=== PATIENT | female | born 1955 | race Caucasian/White ===

== ENCOUNTER 2020-01-06 12:35 | Outpatient (CLI) | payer MEDICARE, OTHER, SELFPAY ==
[2020-01-06 12:55] LABS: Basophils % 0.3 %; Hematocrit 35.7 % (37.0-47.0); Hemoglobin 11.8 g/dL (11.5-15.3); Lymphocytes # 2.7 10^3/uL (0.8-4.8); Lymphocytes % 25.8 %; Mean Corpuscular HGB Conc 33.1 g/dL (30.0-36.0); Mean Corpuscular Hemoglobin 30.8 pg (28.0-34.0); Mean Corpuscular Volume 93.2 fL (81-99); Mean Platelet Volume 10.2 fL (7.4-10.4); Monocytes # 0.6 10^3/uL (0.2-0.9); Monocytes % 5.6 %; Neutrophils # 7.1 10^3/uL (1.8-7.7); Neutrophils % 67.7 %; Nucleated Red Blood Cells % 0 %; Platelet Count 260 10^3/cmm (130-400); Red Blood Count 3.83 10^6/uL (4.1-5.3); Red Cell Distribution Width 14.6 % (12.1-15.1); White Blood Count 10.5 10^3/uL (4.0-10.0)
[2020-01-06 13:12] LABS: Ferritin 215 ng/mL (15-150); Iron 61 ug/dL (37-145); Percent Saturation 21.7 % (20-50); Total Iron Binding Capacity 281 mcg/dl; Unsaturated Iron Binding 220 ug/dL (112-347)
[2020-01-06 13:27] LABS: Vitamin B12 987 pg/mL (232-1245)
--- NOTE | 2020-01-06 15:53 | ONC FU_ITS ---
Dr. Adams follow up note Patient: Kimberly Patrick Unit #: [id number]: 1955 Dicatated By: Rae Adams M.D.Date of Visit:Jan 06, 2020 Onc Med Follow-up/Prog Note History of Present Illness: Mrs. Kimberly Patrick, 64-year-old female with history of anemia . As per patient, she was given iron tablets in January 2016 with that she developed severe constipation and upset stomach it was discontinued then she was given liquid iron from [employer] and she could not tolerate that either and it was discontinued finally on 05/09/2016 she was given 2 years till packed RBCs for persistent anemia she does not remember how low her hemoglobin was. And then she received weekly infusion of parenteral iron 1 on 07/18/2016 second on 07/25/2016 and she felt so good and energetic she went out for hiking and long walk. Patient has history of peptic ulcer disease about 20 years ago at that time she was treated with antibiotics antacids and diet modification and her last EGD was done on 06/15/2016 and it was normal. And on 06/15/2016 she had colonoscopy evaluation and it was normal. Except internal hemorrhoids On CBC checked on 06/13/2017 showed white blood count 11.3 hemoglobin 9 hematocrit 27.7 platelets 386,000 MCV 85.3 and repeat CBC on 07/31/2017 showed white blood count 8.9 hemoglobin 7.9 crit 22.9 platelets 391k MCV 78.5 , complaining of generalized weakness and fatigue, patient said last time when she received Injectafer, she felt really good and her hemoglobin improved but since then she had aortic surgery done for leaky valve and and recently on 05/19/2019 her routine lab workup showed white blood count 7.7 hemoglobin 9.8 hematocrit 29.6 MCV 87.4 platelets 310,000 iron saturation 17.5% which is low and TIBC 410, patient was on oral iron before but on 05/19/2019 her PMD increased her oral iron dose to twice a day. And now with upset stomach and intolerance. Patient denies any melena or hematochezia except darker stools due to iron, no fever or chills, no jaundice, no hemoptysis or hematemesis. But dyspnea on exertion now use home oxygen her [id number] desaturation on exertion.Was given Injectafer on 06/10/2019 and 06/17/2019 with that her hemoglobin improved to 12.4 on 07/15/2019 compared to 10.7 g prior to Injectafer infusion Capsule endoscopy was done on 08/29/2019 showed normal exam no also, no AVMs or other lesion seen Came for follow-up, denies any specific complaints, no fever or chills, no nausea or vomiting, no diarrhea constipation, no melena hematochezia, no palpitation or shortness of breath.using home oxygen as recommended by PMD. Medications: Acetaminophen 1 Tablet (of 650 mg) Oral daily, Advair Diskus 1 Tablet (of 250-50 mcg/dose) Aerosol Powder, Breath Activated Inhalation b.i.d., Albuterol Sulfate 3 puff(s) (of 108 (90 base) mcg/act) Aerosol Powder, Breath Activated Inhalation four times a day, amLODIPine Besylate 1 Tablet (of 2.5 mg) Oral daily, Aspirin 1 Tablet (of 81 mg) Tablet, enteric coated Oral daily, Brovana 2 (15 mcg/2mL) Nebulization solution Inhalation q 12 hours, Bydureon 1 Subcutaneous q 7 days, Carbidopa-Levodopa 1 Tablet (of 25-100 mg) Tablet Dispersable Oral at bedtime, EpiPen Jr 2-Jacobo Injection PRN, Ergocalciferol 1 Tablet (of 45226 Units) Capsule Oral daily, Ferrous Sulfate 1 Tablet (of 325 (65 fe) mg) Oral daily, Furosemide 1 Tablet (of 40 mg) Oral daily, Gabapentin 1 Tablet (of 100 mg) Capsule Oral four times a day, Gemfibrozil 1 Tablet (of 600 mg) Oral b.i.d., Lisinopril 1 Tablet (of 20 mg) Oral daily, LORazepam 1 Tablet (of 1 mg) Oral b.i.d. PRN, MetFORMIN HCl 1 (1000 mg) Tablet Oral b.i.d., Metoprolol Tartrate 0.5 Tablet (of 100 mg) Oral b.i.d., Metoprolol Tartrate 1 (25 mg) Tablet Oral b.i.d., Montelukast Sodium 1 Tablet (of 10 mg) Oral daily, NexIUM 1 Tablet (of 40 mg) Capsule Delayed Release Oral daily, Nitrofurantoin Monohyd Macro 1 Tablet (of 100 mg) Capsule Oral at bedtime, Potassium Chloride ER 1 Tablet (of 20 meq) Tablet, controlled release Oral daily, ProAir HFA 2 puff(s) (of 108 (90 base) mcg/act) Aerosol, solution Inhalation daily PRN, Simvastatin 1 Tablet (of 20 mg) Oral daily, Triamterene-HCTZ 1 Tablet (of 37.5-25 mg) Oral daily, Vitamin B12 1 Tablet (of 1000 mcg) Oral daily, Zoloft 2 Tablet (of 100 mg) Oral daily Allergies: bee stings, Erythromycin Base, Lyrica, Naproxen, Savella, SULFA , and Walnuts. Review of Systems: Constitutional - Her energy level is good. Her appetite is fair. No fever, chills, hot flashes, or night sweats, ENMT - She has sinus congestion/drainage. No mouth sores. No sore throat or difficulty swallowing, Hematologic/Lymphatic - She bruises easily, Respiratory - She has shortness of breath with activity. She has cough. Pt is on portable oxygen today. No pleuritic pain, Cardiovascular - No angina pain, Gastrointestinal - No nausea or vomiting, positive for heartburn and diarrhea, Genitourinary (F) - Positive for stress incontinence and urinary frequency, Musculoskeletal - She has generalized pain, Neurologic - She has dizziness. Positive for headache. She has neuropathy pain in her feet, Psychiatric - She has anxiety and depression. She has insomnia. Vital Signs: Performed on Jan 06, 2020 14:25 Height - 65.50 in Weight - 259.4 lbs (HIGH) BSA - 2.22 sq.m BMI - 42.51 (HIGH) Temperature - 96.9 F (LOW) Pulse - 85 /min Respiration - 19 /min BP - 134/78 mm(hg) O2 Sat - 95 % (LOW) Pain - 8 Performance Status: 1 - No physically strenuous activity, but ambulatory and able to carry out light or sedentary work (e.g. office work, light house work). (ECOG) Physical Examination: ENMT - No oral exudates, ulcers, masses, thrush or mucositis. Oropharynx clear. Tongue normal, Respiratory - poor air entry, Cardiovascular - Regular rate and rhythm of heart, Extremities - trace edema. Lab/Imaging: Test performed on Oct 08, 2019 12:54 Ferritin 417.0 ng/ml Iron 91 ug/dL % Iron Saturation 25.4 % UIBC 266 ug/dL WBC 9.5 10 3/uL RBC 3.76 10 6/uL HGB 11.9 g/dL HCT 35.7 % MCV 94.9 fl MCH 31.6 pg MCHC 33.3 g/dl RDW 14.2 % Platelet Count 319 10 3/cmm MPV 10.5 fl Neutrophils 5.8 10 3/uL Lymphocytes 2.8 10 3/uL Monocytes 0.8 10 3/uL Eosinophils 0.0 10 3/uL Basophils 0.0 10 3/uL Neutrophil % 61.4 % Lymphocyte % 29.6 % Monocyte % 8.1 % Eosinophil % 0.0 % Basophils % 0.4 % Impression: Microcytic normochromic anemia probably due to iron deficiency due to malabsorption or/ and chronic GI blood loss (history of peptic ulcer disease and internal hemorrhoids) Underlying myelodysplasia cannot be ruled out On 08/07/2017 her ferritin was 4.2 TIBC 782.3 B12 325 copper 133 folic acid more than 20 TSH 1.87 Status post 2 units of packed RBCs on 05/09/2016 history of parenteral iron infusionIn June 2016 , for iron deficiency Oral iron intolerance Status post Injectafer ???2, Plan: Discussed with patient regarding her labs white blood count 10.5 globin 11.8 hematocrit 35.7 platelets 260,000 iron saturation 21.7% ferritin 250 and compared to 417 on 10/08/2019, iron 61, TIBC 281, B12 987 Clinically, patient is doing well, follow-up lab shows hemoglobin still in the normal range e.g. 11.8 normal range is 11.5-15.3 g and iron studies shows further drop in her ferritin level but still within normal range. We'll continue to monitor and she will return to clinic in 3 months with CBC on studies B12 level. Patient is taking B12 2000 ???g every day she was advised take 1000 ???g daily Signed By: Rae Adams M.D. <<Signature on File>>
== END 2020-01-06 12:36 | disposition home or self-care (01) ==
LOC: ONCMED 12:38
PROVIDERS: Family Provider Family Medicine; PCP Family Medicine; Visit Provider Internal Medicine Hematology & Oncology
DX: D50.9 Iron deficiency anemia, unspecified (principal); F41.8 Other specified anxiety disorders; K64.8 Other hemorrhoids; Z99.81 Dependence on supplemental oxygen; Z79.51 Long term (current) use of inhaled steroids; Z79.82 Long term (current) use of aspirin; Z87.11 Personal history of peptic ulcer disease
CPT/HCPCS: 82607; 82728; 83540; 83550; 85025; G0463

== ENCOUNTER 2020-04-11 08:20 | Outpatient (CLI) | payer MEDICARE, OTHER, SELFPAY ==
[2020-04-11 10:37] LABS: Basophils % 0.3 %; Hematocrit 32.8 % (37.0-47.0); Hemoglobin 10.4 g/dL (11.5-15.3); Lymphocytes # 1.9 10^3/uL (0.8-4.8); Lymphocytes % 27.4 %; Mean Corpuscular HGB Conc 31.7 g/dL (30.0-36.0); Mean Corpuscular Hemoglobin 30.1 pg (28.0-34.0); Mean Corpuscular Volume 95.1 fL (81-99); Mean Platelet Volume 11.2 fL (7.4-10.4); Monocytes # 0.6 10^3/uL (0.2-0.9); Monocytes % 8.5 %; Neutrophils # 4.4 10^3/uL (1.8-7.7); Neutrophils % 63.2 %; Nucleated Red Blood Cells % 0 %; Platelet Count 249 10^3/cmm (130-400); Red Blood Count 3.45 10^6/uL (4.1-5.3); Red Cell Distribution Width 15.1 % (12.1-15.1)
[2020-04-11 10:56] LABS: Ferritin 159 ng/mL (15-150); Iron 52 ug/dL (37-145); Percent Saturation 17.5 % (20-50); Total Iron Binding Capacity 297 mcg/dl; Unsaturated Iron Binding 245 ug/dL (112-347)
== END 2020-04-11 08:21 | disposition home or self-care (01) ==
LOC: ONCMED 16:18
PROVIDERS: PCP Family Medicine; Visit Provider Internal Medicine Hematology & Oncology
DX: D50.9 Iron deficiency anemia, unspecified (principal)
CPT/HCPCS: 36415; 82728; 83540; 83550; 85025

== ENCOUNTER 2020-04-12 12:27 | Outpatient (CLI) | payer MEDICARE, OTHER, SELFPAY ==
[2020-04-12] MEDS: ferric carboxy (IVPB) 750 MG in sodium chloride 0.9% (100 ml) 100 ML 345 MG IV (13:35)
--- NOTE | 2020-04-12 17:18 | ONC FU_ITS ---
Dr. Adams follow up note Patient: Kimberly Patrick Unit #: [id number]: 1955 Dicatated By: Rae Adams M.D.Date of Visit:Apr 12, 2020 Onc Med Follow-up/Prog Note History of Present Illness: Mrs. Kimberly Patrick, 65-year-old female with history of anemia . As per patient, she was given iron tablets in January 2016 with that she developed severe constipation and upset stomach it was discontinued then she was given liquid iron from [employer] and she could not tolerate that either and it was discontinued finally on 05/09/2016 she was given 2 years till packed RBCs for persistent anemia she does not remember how low her hemoglobin was. And then she received weekly infusion of parenteral iron 1 on 07/18/2016 second on 07/25/2016 and she felt so good and energetic she went out for hiking and long walk. Patient has history of peptic ulcer disease about 20 years ago at that time she was treated with antibiotics antacids and diet modification and her last EGD was done on 06/15/2016 and it was normal. And on 06/15/2016 she had colonoscopy evaluation and it was normal. Except internal hemorrhoids On CBC checked on 06/13/2017 showed white blood count 11.3 hemoglobin 9 hematocrit 27.7 platelets 386,000 MCV 85.3 and repeat CBC on 07/31/2017 showed white blood count 8.9 hemoglobin 7.9 crit 22.9 platelets 391k MCV 78.5 , complaining of generalized weakness and fatigue, patient said last time when she received Injectafer, she felt really good and her hemoglobin improved but since then she had aortic surgery done for leaky valve and and recently on 05/19/2019 her routine lab workup showed white blood count 7.7 hemoglobin 9.8 hematocrit 29.6 MCV 87.4 platelets 310,000 iron saturation 17.5% which is low and TIBC 410, patient was on oral iron before but on 05/19/2019 her PMD increased her oral iron dose to twice a day. And now with upset stomach and intolerance. Patient denies any melena or hematochezia except darker stools due to iron, no fever or chills, no jaundice, no hemoptysis or hematemesis. But dyspnea on exertion now use home oxygen her [id number] desaturation on exertion.Was given Injectafer on 06/10/2019 and 06/17/2019 with that her hemoglobin improved to 12.4 on 07/15/2019 compared to 10.7 g prior to Injectafer infusion Capsule endoscopy was done on 08/29/2019 showed normal exam no also, no AVMs or other lesion seen Came for follow-up, complaining of generalized weakness and fatigue otherwise no melena or hematochezia, no hemoptysis or hematemesis, no jaundice, no palpitation or shortness of breath at rest. Medications: Acetaminophen 1 Tablet (of 650 mg) Oral daily, Advair Diskus 1 Tablet (of 250-50 mcg/dose) Aerosol Powder, Breath Activated Inhalation b.i.d., Albuterol Sulfate 3 puff(s) (of 108 (90 base) mcg/act) Aerosol Powder, Breath Activated Inhalation four times a day, amLODIPine Besylate 1 Tablet (of 2.5 mg) Oral daily, Aspirin 1 Tablet (of 81 mg) Tablet, enteric coated Oral daily, Brovana 2 (15 mcg/2mL) Nebulization solution Inhalation q 12 hours, Bydureon 1 Subcutaneous q 7 days, Carbidopa-Levodopa 1 Tablet (of 25-100 mg) Tablet Dispersable Oral at bedtime, EpiPen Jr 2-Jacobo Injection PRN, Ergocalciferol 1 Tablet (of 07913 Units) Capsule Oral daily, Ferrous Sulfate 1 Tablet (of 325 (65 fe) mg) Oral daily, Furosemide 1 Tablet (of 40 mg) Oral daily, Gabapentin 1 Tablet (of 100 mg) Capsule Oral four times a day, Gemfibrozil 1 Tablet (of 600 mg) Oral b.i.d., Lisinopril 1 Tablet (of 20 mg) Oral daily, LORazepam 1 Tablet (of 1 mg) Oral b.i.d. PRN, MetFORMIN HCl 1 (1000 mg) Tablet Oral b.i.d., Metoprolol Tartrate 0.5 Tablet (of 100 mg) Oral b.i.d., Metoprolol Tartrate 1 (25 mg) Tablet Oral b.i.d., Montelukast Sodium 1 Tablet (of 10 mg) Oral daily, NexIUM 1 Tablet (of 40 mg) Capsule Delayed Release Oral daily, Nitrofurantoin Monohyd Macro 1 Tablet (of 100 mg) Capsule Oral at bedtime, Potassium Chloride ER 1 Tablet (of 20 meq) Tablet, controlled release Oral daily, ProAir HFA 2 puff(s) (of 108 (90 base) mcg/act) Aerosol, solution Inhalation daily PRN, Simvastatin 1 Tablet (of 20 mg) Oral daily, Triamterene-HCTZ 1 Tablet (of 37.5-25 mg) Oral daily, Vitamin B12 1 Tablet (of 1000 mcg) Oral daily, Zoloft 2 Tablet (of 100 mg) Oral daily Allergies: bee stings, Erythromycin Base, Lyrica, Naproxen, Savella, SULFA , and Walnuts. Review of Systems: Review of Systems is not available for this patient. Vital Signs: Performed on Apr 12, 2020 12:41 Height - 65.50 in Weight - 260.8 lbs (HIGH) BSA - 2.23 sq.m BMI - 42.74 (HIGH) Temperature - 97.6 F (LOW) Pulse - 70 /min Respiration - 24 /min BP - 183/74 mm(hg) (HIGH) O2 Sat - 100 % Pain - 8 Performance Status: 1 - No physically strenuous activity, but ambulatory and able to carry out light or sedentary work (e.g. office work, light house work). (ECOG) Physical Examination: ENMT - No mouth sores, no thrush, no jaundice, Respiratory - Lungs are clear, Cardiovascular - Regular rate and rhythm of heart, Abdomen - Soft, bowel sounds present, nontender. Lab/Imaging: Test performed on Jan 06, 2020 12:40 Ferritin 215 ng/mL Iron 61 mcg/dL Vitamin B12 987 pg/mL Iron Binding Capacity (TIBC) 281 mcg/dl % Iron Saturation 21.7 % UIBC 220 mcg/dL WBC 10.5 10 3/uL RBC 3.83 10 6/uL HGB 11.8 g/dL HCT 35.7 % MCV 93.2 fL MCH 30.8 pg MCHC 33.1 g/dL RDW 14.6 % Platelet Count 260 10 3/cmm MPV 10.2 fL Neutrophils 7.1 10 3/uL Lymphocytes 2.7 10 3/uL Monocytes 0.6 10 3/uL Eosinophils 0.0 10 3/uL Basophils 0.0 10 3/uL Neutrophil % 67.7 % Lymphocyte % 25.8 % Monocyte % 5.6 % Eosinophil % 0.0 % Basophils % 0.3 % Impression: Microcytic normochromic anemia probably due to iron deficiency due to malabsorption or/ and chronic GI blood loss (history of peptic ulcer disease and internal hemorrhoids) Underlying myelodysplasia cannot be ruled out On 08/07/2017 her ferritin was 4.2 TIBC 782.3 B12 325 copper 133 folic acid more than 20 TSH 1.87 Status post 2 units of packed RBCs on 05/09/2016 history of parenteral iron infusionIn June 2016 , for iron deficiency Oral iron intolerance Status post Injectafer ???2, Plan: Discussed with patient regarding her labs white blood count 7 hemoglobin 10.4 g compared to 11.8 g on January 06, 2020, hematocrit 32.8 platelets 249,000 iron studies shows further drop in iron saturation now 17.5% compared to 21.7 percent, ferritin 159 compared to 215 previously Clinically, patient is doing reasonably well now with progressive mild/moderate anemia and follow-up labs shows further drop in her hemoglobin e.g. 10.4 g today compared to 11.8 g on January 06, 2020 and iron studies shows further drop in the iron stores and moreover patient is becoming symptomatic and there is no evidence of gross bleeding, GI work-up done in the recent past showed no evidence of gross bleeding. In the past she responded very well to parenteral iron, she was given Injectafer 750 mg weekly x2 in May 2019, with that her hemoglobin improved to 12.4 g compared to 10.7 g prior to the infusion. At this point, because of progressive iron deficiency anemia, we will consider Injectafer 750 mg IV x1 now and then she will return to clinic in 2 months with CBC and iron studies. Signed By: Rae Adams M.D. <<Signature on File>>
== END 2020-04-12 12:28 | disposition home or self-care (01) ==
LOC: ONCMED 12:33
PROVIDERS: PCP Family Medicine; Visit Provider Internal Medicine Hematology & Oncology
DX: D50.9 Iron deficiency anemia, unspecified (principal)
CPT/HCPCS: 96365; 99214; J1439

== ENCOUNTER → 2020-05-11 10:18 | Outpatient (BNVA) | payer MEDICARE, OTHER, SELFPAY | PROVIDERS: PCP Family Medicine; Visit Provider Family Medicine | DX: E11.42 Type 2 diabetes mellitus with diabetic polyneuropathy (principal); R53.83 Other fatigue; F41.9 Anxiety disorder, unspecified | CPT/HCPCS: 36415; 80053; 80061; 83036; 84439; 84443; 85025 ==

== ENCOUNTER → 2020-06-06 10:53 | Outpatient (BNVA) | payer MEDICARE, OTHER, SELFPAY | PROVIDERS: PCP Family Medicine; Visit Provider Podiatrist Foot & Ankle Surgery | DX: E11.621 Type 2 diabetes mellitus with foot ulcer (principal); L97.522 Non-pressure chronic ulcer of other part of left foot with fat layer exposed; L97.512 Non-pressure chronic ulcer of other part of right foot with fat layer exposed; E11.42 Type 2 diabetes mellitus with diabetic polyneuropathy; L84 Corns and callosities | CPT/HCPCS: 73630 ==

== ENCOUNTER → 2020-06-27 16:45 | Outpatient (BNVA) | payer MEDICARE, OTHER, SELFPAY | PROVIDERS: PCP Family Medicine; Visit Provider Internal Medicine Hematology & Oncology | DX: D50.9 Iron deficiency anemia, unspecified (principal); E11.42 Type 2 diabetes mellitus with diabetic polyneuropathy | CPT/HCPCS: 36415; 82728; 83550; 85025 ==

== ENCOUNTER 2020-06-29 06:03 | Outpatient (CLI) | payer MEDICARE, OTHER, SELFPAY ==
--- NOTE | 2020-06-29 16:33 | ONC FU_ITS ---
Dr. Adams follow up note Patient: Kimberly Patrick Unit #: [id number]: 1955 Dicatated By: Rae Adams M.D.Date of Visit:Jun 29, 2020 Telehealth Progress Note The patient has been informed that the visit may not be secure and acknowledged the information. I have explained the option of participating in a telephone or video visit during the [facility]- public health emergency to the patient. After being given an opportunity to ask questions about and discuss this type of visit, the patient verbally consented to proceeding with the telephone/video visit. the patient understands that this service replaces an office visit and they may be billed and /or responsible for any applicable copayments History of Present Illness: Mrs. Kimberly Patrick, 65-year-old female with history of anemia . As per patient, she was given iron tablets in January 2016 with that she developed severe constipation and upset stomach it was discontinued then she was given liquid iron from [employer] and she could not tolerate that either and it was discontinued finally on 05/09/2016 she was given 2 years till packed RBCs for persistent anemia she does not remember how low her hemoglobin was. And then she received weekly infusion of parenteral iron 1 on 07/18/2016 second on 07/25/2016 and she felt so good and energetic she went out for hiking and long walk. Patient has history of peptic ulcer disease about 20 years ago at that time she was treated with antibiotics antacids and diet modification and her last EGD was done on 06/15/2016 and it was normal. And on 06/15/2016 she had colonoscopy evaluation and it was normal. Except internal hemorrhoids On CBC checked on 06/13/2017 showed white blood count 11.3 hemoglobin 9 hematocrit 27.7 platelets 386,000 MCV 85.3 and repeat CBC on 07/31/2017 showed white blood count 8.9 hemoglobin 7.9 crit 22.9 platelets 391k MCV 78.5 , complaining of generalized weakness and fatigue, patient said last time when she received Injectafer, she felt really good and her hemoglobin improved but since then she had aortic surgery done for leaky valve and and recently on 05/19/2019 her routine lab workup showed white blood count 7.7 hemoglobin 9.8 hematocrit 29.6 MCV 87.4 platelets 310,000 iron saturation 17.5% which is low and TIBC 410, patient was on oral iron before but on 05/19/2019 her PMD increased her oral iron dose to twice a day. And now with upset stomach and intolerance. Patient denies any melena or hematochezia except darker stools due to iron, no fever or chills, no jaundice, no hemoptysis or hematemesis. But dyspnea on exertion now use home oxygen her [id number] desaturation on exertion.Was given Injectafer on 06/10/2019 and 06/17/2019 with that her hemoglobin improved to 12.4 on 07/15/2019 compared to 10.7 g prior to Injectafer infusion Capsule endoscopy was done on 08/29/2019 showed normal exam no also, no AVMs or other lesion seen Injectafer 750 mg x 1 given for hemoglobin 10.4g April 12, 2020 with excellent responseE.g. normalization of hemoglobin 12.9 g on June 27, 2020 Evaluated via telephone, patient denies any specific complaints, no melena or hematochezia, no nausea or vomiting, no diarrhea constipation, no fever chills, patient tolerated Injectafer given on April 12, 2020 well, more energetic, now being evaluated for foot surgery. Medications: Acetaminophen 1 Tablet (of 650 mg) Oral daily, Advair Diskus 1 Tablet (of 250-50 mcg/dose) Aerosol Powder, Breath Activated Inhalation b.i.d., Albuterol Sulfate 3 puff(s) (of 108 (90 base) mcg/act) Aerosol Powder, Breath Activated Inhalation four times a day, amLODIPine Besylate 1 Tablet (of 2.5 mg) Oral daily, Aspirin 1 Tablet (of 81 mg) Tablet, enteric coated Oral daily, Brovana 2 (15 mcg/2mL) Nebulization solution Inhalation q 12 hours, Bydureon 1 Subcutaneous q 7 days, Carbidopa-Levodopa 1 Tablet (of 25-100 mg) Tablet Dispersable Oral at bedtime, EpiPen Jr 2-Jacobo Injection PRN, Ergocalciferol 1 Tablet (of 93835 Units) Capsule Oral daily, Ferrous Sulfate 1 Tablet (of 325 (65 fe) mg) Oral daily, Furosemide 1 Tablet (of 40 mg) Oral daily, Gabapentin 1 Tablet (of 100 mg) Capsule Oral four times a day, Gemfibrozil 1 Tablet (of 600 mg) Oral b.i.d., Lisinopril 1 Tablet (of 20 mg) Oral daily, LORazepam 1 Tablet (of 1 mg) Oral b.i.d. PRN, MetFORMIN HCl 1 (1000 mg) Tablet Oral b.i.d., Metoprolol Tartrate 0.5 Tablet (of 100 mg) Oral b.i.d., Metoprolol Tartrate 1 (25 mg) Tablet Oral b.i.d., Montelukast Sodium 1 Tablet (of 10 mg) Oral daily, NexIUM 1 Tablet (of 40 mg) Capsule Delayed Release Oral daily, Nitrofurantoin Monohyd Macro 1 Tablet (of 100 mg) Capsule Oral at bedtime, Potassium Chloride ER 1 Tablet (of 20 meq) Tablet, controlled release Oral daily, ProAir HFA 2 puff(s) (of 108 (90 base) mcg/act) Aerosol, solution Inhalation daily PRN, Simvastatin 1 Tablet (of 20 mg) Oral daily, Triamterene-HCTZ 1 Tablet (of 37.5-25 mg) Oral daily, Vitamin B12 1 Tablet (of 1000 mcg) Oral daily, Zoloft 2 Tablet (of 100 mg) Oral daily Allergies: bee stings, Erythromycin Base, Lyrica, Naproxen, Savella, SULFA , and Walnuts. Review of Systems: Review of Systems is not available for this patient. Vital Signs: Vitals are not available for this patient. Performance Status: 1 - No physically strenuous activity, but ambulatory and able to carry out light or sedentary work (e.g. office work, light house work). (ECOG) Physical Examination: ENMT - Patient denies any mouth sores, denies any jaundice, Respiratory - Denies any shortness of breath or wheezing, Cardiovascular - Denies any palpitation or tachycardia, Abdomen - Denies any abdominal pain or fullness, Extremities - Complaining of trace edema. Lab/Imaging: Test performed on Jun 27, 2020 13:34 % Iron Saturation 31.5 % Iron, Total 86 mcg/dL TIBC 273 mcg/dL WBC 10.4 10^9/L RBC 4.33 10^12/L HGB 12.9 g/dL HCT 38.3 % MCV 88.4 fl MCH 29.9 pg MCHC 33.8 g/dL RDW 14.2 % Platelet Count 316 10^9/L MPV 8.2 fL Neutrophils (Gran) 6.4 10^9/L Lymphocytes 3.3 10^9/L Monocytes 0.6 10^9/L Manual Lymphocytes 32.1 % Manual Monocytes 6.1 % Test performed on Apr 11, 2020 08:20 Ferritin 159 ng/mL UIBC 245 mcg/dL Eosinophils 0.0 10 3/uL Basophils 0.0 10 3/uL Neutrophil % 63.2 % Lymphocyte % 27.4 % Monocyte % 8.5 % Eosinophil % 0.0 % Basophils % 0.3 % NRBC % 0 % Test performed on Jan 06, 2020 12:40 Vitamin B12 987 pg/mL Impression: Microcytic normochromic anemia probably due to iron deficiency due to malabsorption or/ and chronic GI blood loss (history of peptic ulcer disease and internal hemorrhoids) Underlying myelodysplasia cannot be ruled out On 08/07/2017 her ferritin was 4.2 TIBC 782.3 B12 325 copper 133 folic acid more than 20 TSH 1.87 Status post 2 units of packed RBCs on 05/09/2016 history of parenteral iron infusionIn June 2016 , for iron deficiency Oral iron intolerance Status post Injectafer ???2, Plan: Discussed with patient via telephone regarding her labs white blood count 10.4 hemoglobin 12.9 hematocrit 38.3 platelets 316,000 ferritin 629 iron saturation 31.5 iron 86 status post Injectafer 750 mg x 1 on April 12, 2020 Clinically, patient is doing well, with no new signs symptoms overall feeling better, tolerated dose of Injectafer well, follow-up labs shows normalization of hemoglobin e.g. 12.9 g compared to 10.4 g prior to Injectafer infusion. And also with adequate iron stores. At this point we will continue to monitor and repeat her CBC iron studies in 3 months. Patient was advised in case she has any question concern she can call us early.Time spent on the phone 6 minutes Signed By: Rae Adams M.D. <<Signature on File>>
== END 2020-06-29 06:04 | disposition home or self-care (01) ==
LOC: ONCMED 06:06
PROVIDERS: PCP Family Medicine; Visit Provider Internal Medicine Hematology & Oncology
DX: D50.9 Iron deficiency anemia, unspecified (principal)
CPT/HCPCS: 87635

== ENCOUNTER 2020-07-01 05:54 | Day surgery (SDC) | payer MEDICARE, OTHER, SELFPAY ==
[2020-06-30 08:58] VITALS: BMI 41.5
[2020-07-01 06:28] LABS: Glucose Point of Care 128 mg/dL (70-110)
--- NOTE | 2020-07-01 06:31 | ANES.PREANE2 ---
Pre-Anesthetic Assessment Pre-Anesthetic Assessment: Height/Weight: Height 1.65 m Weight 113.398 kg Preop Diagnosis: Left ankle contracture, left hallux rigidus Proposed Procedure: Operation Date: 07/01/20 07:00 Proposed Procedures p Cheilectomy 46800 L97.522 M20.22(Not Applicable) - Morgan Davis DPM s Tendon Lengthening Foot Achilles 35682(Left) - Morgan Davis DPM s Hallux interphalangeal joint arthroplasty left lower extremity 55738(Left) - Morgan Davis DPM Familial anesthetic complications: None Was Beta Efren taken within 24 hours: Yes Last intake: Intake Last Liquid Date 07/01/20 Last Liquid Time 04:15 Last Solid Date 06/30/20 Last Solid Time 19:30 Social: Social History: Tobacco and No alcohol Exam: Pre-Anes Outpt Exam: alert, oriented x 3, clear to auscultation bilaterally and regular rate & rhythm Airway: Cervical ROM: WNL MP: 3 Dentition: Full Additional comments: large neck circumference Pulmonary: Pulmonary: COPD (wears 2 L NC continuously ) and Sleep apnea (cpap) CV/HEM: CV/HEM: CAD, HTN and TN (X2) Comments: AVR replacement in 2018 GI: GI: GERD Metabolic: Metabolic: DM, Hyperlipidemia and Morbid obesity Musc/skel: Musc/skel: Fibromyalgia Neuropsych: Neuropsych: CVA (L sided weakness (residual) - last occured 1995) Comments: denies parkinson's -states RLS Anesthetic Plan: ASA status: 4 Anesthesia: MAC Risk of > 500 ml blood loss (7ml/kg in children): No PFSH Anesthesia PFSH: Medical History Anxiety Asthma COPD exacerbation Depression, controlled Diabetic mononeuropathy associated with diabetes mellitus due to underlying condition Fatigue Fibromyalgia Flaccid bladder Gastro-esophageal reflux disease without esophagitis Hypertension Idiopathic aplastic anemia Idiopathic hypochromic anemia Mixed hyperlipidemia Moderate episode of recurrent major depressive disorder Renal insufficiency, mild Type 2 diabetes mellitus Surgical History Aortic valve replaced H/O breast biopsy Family History Other Cancer Hypertension Social History Smoking and tobacco status: former smoker Quit status (tobacco): has quit using tobacco Data Anesthesia Other Labs: Laboratory Results - last 48 hr 07/01/20 06:25 POC Glucose 128 Cardiac Studies: No Data to Display
--- NOTE | 2020-07-01 06:43 | P.HPUD_ITS ---
Surgery/Procedure H&P Update DATE OF PROCEDURE: July 01, 2020 DATE H&P PERFORMED: 06/06/20 H&P UPDATE INFORMATION: I have reviewed H&P completed within last 30 days, I have examined patient prior to procedure, No changes to prior documentation and H&P is in [facility] EMR on date indicated PREOP DIAGNOSIS: Left ankle contracture, left hallux rigidus PLANNED PROCEDURE: Operation Date: 07/01/20 07:00 Proposed Procedures p Cheilectomy 20012 L97.522 M20.22(Not Applicable) - Morgan Davis DPM s Tendon Lengthening Foot Achilles 18427(Left) - Morgan Davis DPM s Hallux interphalangeal joint arthroplasty left lower extremity 56083(Left) - Morgan Davis DPM
--- NOTE | 2020-07-01 06:43 | W.PM.OPSUD ---
Surgery/Procedure H&P Update DATE OF PROCEDURE: July 01, 2020 DATE H&P PERFORMED: 06/06/20 H&P UPDATE INFORMATION: I have reviewed H&P completed within last 30 days, I have examined patient prior to procedure, No changes to prior documentation and H&P is in [facility] EMR on date indicated PREOP DIAGNOSIS: Left ankle contracture, left hallux rigidus PLANNED PROCEDURE: Operation Date: 07/01/20 07:00 Proposed Procedures p Cheilectomy 39838 L97.522 M20.22(Not Applicable) - Morgan Davis DPM s Tendon Lengthening Foot Achilles 67911(Left) - Morgan Davis DPM s Hallux interphalangeal joint arthroplasty left lower extremity 14678(Left) - Morgan Davis DPM
--- NOTE | 2020-07-01 06:44 | P.OP_ITS ---
Operative Report Date of procedure: July 01, 2020 Pre-op Diagnosis: Left ankle contracture, left hallux rigidus Post-op diagnosis: same Post-op Findings: None Procedure Done: Left Achilles tendon lengthening CPT code 54627. Left hallux interphalangeal joint arthroplasty CPT code 04953 Implants: 0.062 K wire. 4-0 Vicryl. 4-0 nylon. Pathology: none sent Surgeon: Morgan Davis D.P.M. Color Shop Helper: Inés Anesthesia: MAC Estimated blood loss: 5 mL Tourniquet time: See intraoperative documentation IV fluids: None Urine output: None Complications: None Findings: None Condition: stable Disposition: PACU Brief History: Ms. Patrick is a pleasant 65-year-old female with recalcitrant ulceration at her plantar aspect of the left hallux is is painful also has had history of infections and local wound care. At this time she is healed and would like to perform surgical offloading utilizing Achilles tendon lengthening and hallux interphalangeal arthroplasty. Risks include pain, bleeding, numbness, infection, transfer pressure, transfer lesion, surgical site infection, dehiscence, bruising, swelling, permanent numbness, damage to adjacent soft tissue structures, Achilles tendon rupture, need for further surgical intervention. Patient is agreeable wishes to proceed. She was seen in preop consent was signed and left lower extremity signed. Procedure: Under mild sedation the patient was brought to the operating room and placed on the operating table in supine position. A timeout was performed. Anesthesia was then administered by the anesthesia service. Local anesthesia was injected by myself consisting of 30 cc of 0.5% Marcaine plain and a left Mcgrath block fashion as well as a local V block at the left posterior leg. Well- padded pneumatic tourniquet applied high calf. Left lower extremity was scrubbed, prepped and draped utilizing normal aseptic technique. Attention was directed to the left posterior leg where the Achilles tendon was palpated 3 cm proximal to its insertion on the posterior calcaneus a longitudinal incision was made with a #15 blade parallel and midline to the Achilles tendon severing the medial half completing a angie-section. In like fashion 3 cm proximal to this a lateral hemisection of the Achilles tendon was performed in like fashion 3 cm to this a medial angie-section of the Achilles tendon was performed with a #15 blade with an obvious release and improvement in dorsiflexion of the left ankle. Incisions were flushed with saline, closed with 4-0 nylon and covered with OpSite. Attention was then directed to the lateral aspect of the left hallux interphalangeal joint where a linear longitudinal incision was made 3 cm in length with a #15 blade. Dissection was carried down through skin and subcu taneous tissue down to the medial aspect of the hallux interphalangeal joint, utilizing a sagittal saw the head of the proximal phalanx of the left hallux was transected and passed from the operative field. Incision site was flushed with copious amounts of sterile saline solution. K wire was driven from distal to proximal from the distal phalanx coursing proximal to the base of the proximal phalanx this was a 0.062 K wire trimmed to length and covered with a Beatriz ball. Deep tissues reapproximated utilizing 4-0 Vicryl. Skin reapproximated utilizing 4-0 nylon. Incision sites were dressed with Adaptic, sterile 4 x 4's, Kerlix and 4 inch Markus wrap. Cam boot was applied, tourniquet was deflated and a prompt hyperemic response was noted to the distal digits of the left lower extremity. Patient tolerated the procedure well and was transferred to the PACU with vital signs stable and vascular status intact. Following a period of postoperative monitoring she will be discharged home is to remain nonweightbearing to the left lower extremity. Follow-up next 07/08/2020 for dressing change. Was provided my cell phone number to contact me with postoperative questions or concerns.
[2020-07-01] MEDS: sodium chloride 0.9% 1,000 ML 30 ML IV (06:47)
[2020-07-01 07:57] VITALS: BP 125/71; PULSE 72; RESP 18; TEMP 36.2; O2SAT 98
--- NOTE | 2020-07-01 08:01 | XR_ITS ---
WS: [id number] Left foot, 3 views, 07/01/2020 Clinical Data: post op Comparison: Left foot, 06/06/2020. Findings: The distal portion of the left first proximal phalanx has been removed.. There is an orthopedic pin f using the left first IP joint. The pin extends through the distal phalanx and into the proximal phal anx. The remainder of the foot is the same. XR/XR foot LT min 3V* [id number] Impression: Fusion of the left first IP joint of the foot.
[2020-07-01 08:33] VITALS: BP 149/50; PULSE 67; RESP 18; O2SAT 100
[2020-07-01] MEDS: HYDROcodone-acetaminophen 5-325 mg Tablet 1 TAB PO (08:36)
--- NOTE | 2020-07-01 08:50 | ANE.PACU2 ---
Inpatient post-anesthesia follow up: Airway intact: Yes Vital signs: Temperature 97.2 F Pulse Rate 67 Respiratory Rate 18 Blood Pressure 149/50 Pulse Oximetry 100 Oxygen Delivery Me thod Room Air Oxygen Flow Rate 2 Fraction of Inspir ed Oxygen Hydration adequate: Yes Nausea and vomiting: No Pain level: 2 Mental status: Baseline
== END 2020-07-01 08:58 | disposition home or self-care (01) ==
PROVIDERS: PCP Family Medicine; Visit Provider Podiatrist Foot & Ankle Surgery
PROC: (CPT 28261; 2020-07-01 07:00)
PROC: (CPT 27685; 2020-07-01 07:00)
DX: M20.22 Hallux rigidus, left foot (principal); M24.572 Contracture, left ankle; J44.9 Chronic obstructive pulmonary disease, unspecified; I10 Essential (primary) hypertension; I25.2 Old myocardial infarction; E78.5 Hyperlipidemia, unspecified; E11.9 Type 2 diabetes mellitus without complications; E66.01 Morbid (severe) obesity due to excess calories; M79.7 Fibromyalgia; I69.354 Hemiplegia and hemiparesis following cerebral infarction affecting left non-dominant side; K21.9 Gastro-esophageal reflux disease without esophagitis; Z95.2 Presence of prosthetic heart valve; E78.2 Mixed hyperlipidemia; Z87.891 Personal history of nicotine dependence
CPT/HCPCS: 27685; 28160; 12345; 36416; 73630; 82962; C1713; J0690; J2250; J2704; J3010; J3490; J7030

== ENCOUNTER → 2020-09-12 10:37 | Outpatient (BNVA) | payer MEDICARE, OTHER, SELFPAY | PROVIDERS: PCP Family Medicine; Visit Provider Podiatrist Foot & Ankle Surgery | DX: Z11.59 Encounter for screening for other viral diseases (principal); Z01.818 Encounter for other preprocedural examination | CPT/HCPCS: 87635 ==

== ENCOUNTER 2020-09-16 07:22 | Day surgery (SDC) | payer MEDICARE, OTHER, SELFPAY ==
[2020-09-15 15:35] VITALS: BMI 41.5
[2020-09-16 07:53] VITALS: BP 153/66; PULSE 75; RESP 18; TEMP 36.2; O2SAT 99
[2020-09-16] MEDS: sodium chloride 0.9% 1,000 ML 30 ML IV (07:57)
[2020-09-16 08:03] LABS: Glucose Point of Care 162 mg/dL (70-110)
--- NOTE | 2020-09-16 08:25 | ANES.PREANE2 ---
Pre-Anesthetic Assessment Pre-Anesthetic Assessment: Height/Weight: Height 1.65 m Weight 113.398 kg Temp Pulse Resp BP Pulse Ox 97.2 F L 75 18 153/66 99 09/16/20 07:53 09/16/20 07:53 09/16/20 07:53 09/16/20 07:53 09/16/20 07:53 Preop Diagnosis: Left ankle contracture, left hallux rigidus Proposed Procedure: Operation Date: 09/16/20 09:10 Proposed Procedures p Cheilectomy 04728 29666 23418 E11.42 L97.512 M24.571 M20.21(Not Applicable) - Morgan Davis DPM s Achilles Tendon Lengthening Foot(Not Applicable) - Morgan Davis DPM s hallux interphalangeal joint Arthroscopy left lower extremity(Left) - Morgan Davis DPM Familial anesthetic complications: none Was Beta Efren taken within 24 hours: Yes Last intake: Intake Last Liquid Date 09/15/20 Last Liquid Time 21:00 Last Solid Date 09/15/20 Last Solid Time 18:00 Social: Social History: No alcohol and No tobacco Comment: former smoker Exam: Pre-Anes Outpt Exam: alert, oriented x 3, clear to auscultation bilaterally and regular rate & rhythm Airway: MP: 4 Dentition: Full Additional comments: lareg neck and tongue Pulmonary: Pulmonary: COPD (2 L NC) and Sleep apnea (CPAP) CV/HEM: CV/HEM: Afib, CAD, HTN and SC Comments: S/p AV replacement Metabolic: Metabolic: DM, Hyperlipidemia and Morbid obesity Neuropsych: Neuropsych: CVA (strokes w/ L sided weakness) Comments: parkinsons Anesthetic Plan: ASA status: 4 Anesthesia: MAC Risk of > 500 ml blood loss (7ml/kg in children): No Meds/Allergies Current Medications: Current Medications Generic Name Dose Route Start Last Admin Trade Name Freq PRN Reason Stop Dose Admin Sodium Chloride 1,000 mls @ 30 ml s/hr 09/16/20 07:45 09/16/20 07:57 Sodium Chloride 0.9% IV 09/17/20 07:44 30 mls/hr .Q24H CAROL Administration PFSH Anesthesia PFSH: Medical History (Updated 09/12/20 @ 10:03 by Morgan Davis DPM) Anxiety Asthma COPD exacerbation Depression, controlled Diabetic mononeuropathy associated with diabetes mellitus due to underlying condition Fatigue Fibromyalgia Flaccid bladder Gastro-esophageal reflux disease without esophagitis Hypertension Idiopathic aplastic anemia Idiopathic hypochromic anemia Mixed hyperlipidemia Moderate episode of recurrent major depressive disorder Renal insufficiency, mild Type 2 diabetes mellitus Surgical History Aortic valve replaced H/O breast biopsy Family History Other Cancer Hypertension Social History Smoking and tobacco status: former smoker Quit status (tobacco): has quit using tobacco Current gender identity: Female Data Anesthesia Other Labs: Laboratory Results - last 48 hr 09/16/20 07:54 POC Glucose 162 Cardiac Studies: No Data to Display
--- NOTE | 2020-09-16 09:21 | XR_ITS ---
WS: [id number] Exam: XR foot RT min 3V* [id number] Date/Time of Exam: 09/16/2020 9:21 AM Reason For Exam: pre op eval hallux rigidus No fracture or dislocation. Hammertoes of the second through the fifth toes. Mild degenerative change s in the midfoot joints. Anterior and posterior heel spurs. No soft tissue foreign bodies. XR/XR foot RT min 3V* [id number] IMPRESSION: 1. No fracture or dislocation. Minimal degenerative changes. 2. Hammertoe deformities and calcaneal spurs.
--- NOTE | 2020-09-16 09:23 | W.PM.OPSUD ---
Surgery/Procedure H&P Update DATE OF PROCEDURE: September 16, 2020 DATE H&P PERFORMED: 09/12/20 H&P UPDATE INFORMATION: I have reviewed H&P completed within last 30 days, I have examined patient prior to procedure, No changes to prior documentation and H&P is in [facility] EMR on date indicated PREOP DIAGNOSIS: Left ankle contracture, left hallux rigidus PLANNED PROCEDURE: Operation Date: 09/16/20 09:10 Proposed Procedures p Cheilectomy 10846 74662 02539 E11.42 L97.512 M24.571 M20.21(Not Applicable) - Morgan Davis DPM s Achilles Tendon Lengthening Foot(Not Applicable) - Morgan Davis DPM s hallux interphalangeal joint Arthroscopy left lower extremity(Left) - Morgan Davis DPM
[2020-09-16 10:27] VITALS: BP 127/69; PULSE 78; RESP 18; TEMP 35.7
--- NOTE | 2020-09-16 10:27 | XR_ITS ---
WS: [id number] Exam: XR foot RT min 3V* [id number] Date/Time of Exam: 09/16/2020 10:27 AM Reason For Exam: post op Comparison 09/16/2020. There is an osteotomy involving the distal end of the proximal phalanx of the great toe. A second ost eotomy is noted along the medial margin of the first metatarsal head. There is also postoperative ben nge with air in the soft tissues along the region of the Achilles tendon. No other postoperative willis ges are identified.
--- NOTE | 2020-09-16 11:02 | SUR.PHASEII ---
repeat foot x ray performed.
[2020-09-16 11:52] VITALS: BP 132/81; PULSE 76; RESP 18; TEMP 36.2; O2SAT 97
--- NOTE | 2020-09-16 18:39 | ANE.PACU2 ---
Inpatient post-anesthesia follow up: Airway intact: Yes Vital signs: Temperature 97.2 F Pulse Rate 76 Respiratory Rate 18 Blood Pressure 132/81 Pulse Oximetry 97 Oxygen Delivery Me thod Room Air Oxygen Flow Rate 2 Fraction of Inspir ed Oxygen Hydration adequate: Yes Nausea and vomiting: No Pain level: 1 Mental status: Baseline
--- NOTE | 2020-09-18 17:34 | P.OP_ITS ---
Operative Report Date of procedure: September 16, 2020 Pre-op Diagnosis: Left ankle contracture, left hallux rigidus Post-op diagnosis: same Procedure Done: Achilles tendon lengthening, cheilectomy and hallux interphalangeal joint arthroplasty all right lower extremity. CPT codes 25036, 92170 and 84433 Implants: 2-0 Vicryl, 4-0 Vicryl, 4-0 nylon Specimens removed/disposition: None Pathology: none sent Surgeon: Morgan Davis DPM Breakfast Bar Attendant: Esther Anesthesia: MAC Estimated blood loss: less than 10 mL Tourniquet time: See intraoperative documentation IV fluids: none Urine output: none Complications: none Findings: none Condition: stable Disposition: PACU Brief History: Ms. 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 Patient wears diabetic shoes, monitors her feet daily avoid walking barefoot and utilizes daily moisturizer she is concerned for infection as the wound has been perpetual, she is healed at this time would like to discuss surgical offloading and effort to prevent future breakdown. This would entail tendo Achilles lengthening, cheilectomy and hallux plantar and a joint arthroplasty. Risks include pain, bleeding, numbness, infection, failure to correct deformity, overcorrection deformity, damage to adjacent soft tissue structures, swelling, bruising, surgical site dehiscence, need for further surgical intervention. Patient is agreeable wishes to proceed. She was seen preoperatively and preop holding informed consent signed, right foot initialed, no guarantees expressed, we written or implied. Procedure: Under mild sedation the patient was brought to the operating room and placed on the operating table in supine position. Timeout was performed. Anesthesia was then administered by the anesthesia service. Local anesthesia injected by himself consisting of 30 cc 0.5% Marcaine plain and a right Mcgrath block and posterior distal leg V-block fashion. Well-padded pneumatic tourniquet applied high calf. Right lower extremity was then scrubbed, prepped and draped utilizing normal aseptic technique. Right lower extremity was elevated and tourniquet was inflated to 250 mmHg. Attention was directed to the right posterior leg where Achilles tendon is palpated down to its insertion. 3 cm proximal to its insertion on the right posterior calcaneal tubercle, 3 cm proximal the midline of the Achilles tendon was identified utilizing a 15 blade with blade parallel to the Achilles fibers was inserted midline rotated medially and transected medial half of the Achilles tendon, 3 cm proximal to this another percutaneous incision with a lateral hemisection of the Achilles tendon was performed followed by a third hemisection medially 3 cm proximal to the previous. Total of 3 hemisections 2 medially and one laterally was performed. Incisions were flushed with saline solution and closed with 4-0 nylon. Incision sites dressed with OpSite. Attention was directed to the dorsal medial aspect of the right first metatarsophalangeal joint where a linear longitudinal incision made with #15 blade 7 cm in length with a section carried down through skin and subcutaneous tissue utilizing accommodation of blunt and sharp technique all bleeders were ligated and cauterized as necessary. Linear capsulotomy performed of the head of the first metatarsal base of the proximal phalanx were freed from the soft tissue and capsular attachments. A sagittal saw was utilized to transect the dorsal one third of the first metatarsal head which was then restored to normal contour and anatomy utilizing a rongeur and rasp. Flare of the dorsal aspect of the proximal phalanx was resected utilizing a rongeur and smoothed with manual rasp. Incision site was flushed with saline solution. Excess incision was then extended distally at the level of the interphalangeal joint, the head of the proximal phalanx was transected utilizing a sagittal saw and passed from the operative field. Following arthroplasty the proximal interphalangeal joint incision site was flushed with saline solution and capsule/periosteal structures reapproximated utilizing 3-0 Vicryl. Subcutaneous tissue reapproximated utilizing 4-0 Vicryl and skin with 4-0 nylon. Incision sites were dressed with Adaptic, sterile 4 x 4's, Kerlix and Markus wrap. Tourniquet was deflated and a prompt hyperemic response was noted to the distal digits of the right lower extremity. Patient tolerated the procedure well and was transferred to the PACU with vital signs stable and vascular status intact. Cam boot was applied. Patient will be discharged home with postoperative care instructions and follow- up.
== END 2020-09-16 12:08 | disposition home or self-care (01) ==
PROVIDERS: PCP Family Medicine; Visit Provider Podiatrist Foot & Ankle Surgery
PROC: (CPT 28289; principal; 2020-09-16 09:10)
PROC: (CPT 28261; 2020-09-16 09:10)
PROC: (CPT 28740; 2020-09-16 09:10)
DX: M24.572 Contracture, left ankle (principal); M20.22 Hallux rigidus, left foot; J44.9 Chronic obstructive pulmonary disease, unspecified; Z99.81 Dependence on supplemental oxygen; Z87.891 Personal history of nicotine dependence; G47.30 Sleep apnea, unspecified; I48.91 Unspecified atrial fibrillation; I25.10 Atherosclerotic heart disease of native coronary artery without angina pectoris; I10 Essential (primary) hypertension; I25.2 Old myocardial infarction; Z86.73 Personal history of transient ischemic attack (TIA), and cerebral infarction without residual deficits; E66.01 Morbid (severe) obesity due to excess calories; Z68.41 Body mass index [BMI] 40.0-44.9, adult; F41.9 Anxiety disorder, unspecified; M79.7 Fibromyalgia; E78.2 Mixed hyperlipidemia; E11.9 Type 2 diabetes mellitus without complications; Z79.82 Long term (current) use of aspirin
CPT/HCPCS: 27685; 28160; 28289; 12345; 36416; 73630; 82962; J0690; J2250; J2405; J2704; J3010; J3490; J7030

== ENCOUNTER → 2020-12-19 14:27 | Outpatient (BNVA) | payer MEDICARE, OTHER, SELFPAY | PROVIDERS: PCP Family Medicine; Visit Provider Family Medicine | DX: E11.9 Type 2 diabetes mellitus without complications (principal); G25.2 Other specified forms of tremor; L97.522 Non-pressure chronic ulcer of other part of left foot with fat layer exposed | CPT/HCPCS: 83036 ==

== ENCOUNTER 2020-12-23 06:00 | Outpatient (RCR) | payer MEDICARE, OTHER, SELFPAY | END 2020-12-25 23:59 | disposition home or self-care (01) | LOC: GPT 06:00 | PROVIDERS: PCP Family Medicine; Referring Provider Family Medicine; Visit Provider Family Medicine | DX: G25.2 Other specified forms of tremor (principal) | CPT/HCPCS: 97032; 97162; 97530 ==

== ENCOUNTER 2020-12-26 06:00 | Outpatient (RCR) | payer MEDICARE, OTHER, SELFPAY | END 2021-01-25 23:59 | disposition home or self-care (01) | LOC: GPT 06:00 | PROVIDERS: PCP Family Medicine; Referring Provider Family Medicine; Visit Provider Family Medicine | DX: G25.2 Other specified forms of tremor (principal) | CPT/HCPCS: 97032; 97110; 97112; 97116; 97164; 97530 ==

== ENCOUNTER → 2021-01-04 10:00 | Outpatient (BNVA) | payer MEDICARE, OTHER, SELFPAY | PROVIDERS: PCP Family Medicine; Visit Provider Internal Medicine Critical Care Medicine | DX: J45.909 Unspecified asthma, uncomplicated (principal); R06.02 Shortness of breath; J30.9 Allergic rhinitis, unspecified | CPT/HCPCS: 82785; 86003 ==

== ENCOUNTER → 2021-01-20 09:49 | Outpatient (BNVA) | payer MEDICARE, OTHER, SELFPAY | PROVIDERS: PCP Family Medicine; Visit Provider Internal Medicine Critical Care Medicine | DX: J45.909 Unspecified asthma, uncomplicated (principal) | CPT/HCPCS: 87635 ==

== ENCOUNTER 2021-01-26 06:00 | Outpatient (RCR) | payer MEDICARE, OTHER, SELFPAY | END 2021-02-24 23:59 | disposition home or self-care (01) | LOC: GPT 06:00 | PROVIDERS: PCP Family Medicine; Referring Provider Family Medicine; Visit Provider Family Medicine | DX: G25.2 Other specified forms of tremor (principal) | CPT/HCPCS: 97110; 97112; 97116; 97530 ==

== ENCOUNTER 2021-01-26 11:26 | Outpatient (CLI) | payer MEDICARE, OTHER, SELFPAY ==
--- NOTE | 2021-01-26 13:27 | PFTS_ITS ---
Date of Study:01/26/21 Date of Dictation: 01/27/2021 MECHANICS: Forced vital capacity (FVC) is normal. Forced expiratory volume in one second (FEV1) is normal. FEV1/FVC is normal Postbronchodilator study not performed. FLOW VOLUME LOOP: Normal . LUNG VOLUMES: Total lung capacity (TLC) is normal. Residual volume (RV) is normal DIFFUSING CAPACITY FOR CARBON MONOXIDE: Normal . INTERPRETATION: The PFTs are normal. MTDD
== END 2021-01-26 11:27 | disposition home or self-care (01) ==
PROVIDERS: PCP Family Medicine; Visit Provider Internal Medicine Critical Care Medicine
DX: J45.909 Unspecified asthma, uncomplicated (principal)
CPT/HCPCS: 94010; 94726; 94729

== ENCOUNTER 2021-02-25 06:00 | Outpatient (RCR) | payer MEDICARE, OTHER, SELFPAY | END 2021-03-27 23:59 | disposition home or self-care (01) | LOC: GPT 06:00 | PROVIDERS: PCP Family Medicine; Referring Provider Family Medicine; Visit Provider Family Medicine | DX: G25.2 Other specified forms of tremor (principal) | CPT/HCPCS: 97110; 97112; 97116; 97140; 97164; 97530 ==

== ENCOUNTER 2021-04-27 06:00 | Outpatient (RCR) | payer MEDICARE, OTHER, SELFPAY | END 2021-05-27 23:59 | disposition home or self-care (01) | LOC: GPT 06:00 | PROVIDERS: PCP Family Medicine; Referring Provider Family Medicine; Visit Provider Family Medicine | DX: E11.42 Type 2 diabetes mellitus with diabetic polyneuropathy (principal); M24.571 Contracture, right ankle | CPT/HCPCS: 97110; 97112; 97116; 97164; 97530 ==

== ENCOUNTER 2021-05-28 06:00 | Outpatient (RCR) | payer MEDICARE, OTHER, SELFPAY | END 2021-06-27 23:59 | disposition home or self-care (01) | LOC: GPT 06:00 | PROVIDERS: PCP Family Medicine; Referring Provider Family Medicine; Visit Provider Family Medicine | DX: E11.42 Type 2 diabetes mellitus with diabetic polyneuropathy (principal); M24.571 Contracture, right ankle | CPT/HCPCS: 97110; 97112; 97116; 97164; 97530 ==

== ENCOUNTER 2021-06-01 11:00 | Outpatient (CLI) | payer MEDICARE, OTHER, SELFPAY | END 2021-06-01 11:01 | disposition home or self-care (01) | LOC: SLEEP 06-05 08:59 | PROVIDERS: PCP Family Medicine; Visit Provider Internal Medicine Critical Care Medicine | DX: J96.11 Chronic respiratory failure with hypoxia (principal) | CPT/HCPCS: 94762 ==

== ENCOUNTER 2021-06-28 06:00 | Outpatient (RCR) | payer MEDICARE, OTHER, SELFPAY | END 2021-07-27 23:59 | disposition home or self-care (01) | LOC: GPT 06:00 | PROVIDERS: PCP Family Medicine; Referring Provider Family Medicine; Visit Provider Family Medicine | DX: E11.42 Type 2 diabetes mellitus with diabetic polyneuropathy (principal); M24.571 Contracture, right ankle | CPT/HCPCS: 97032; 97110; 97112; 97116; 97164; 97530 ==

== ENCOUNTER 2021-07-28 06:00 | Outpatient (RCR) | payer MEDICARE, OTHER, SELFPAY | END 2021-08-27 23:59 | disposition home or self-care (01) | LOC: GPT 06:00 | PROVIDERS: PCP Family Medicine; Referring Provider Family Medicine; Visit Provider Family Medicine | DX: E11.42 Type 2 diabetes mellitus with diabetic polyneuropathy (principal); M24.571 Contracture, right ankle | CPT/HCPCS: 97110; 97112; 97116; 97164; 97530 ==

== ENCOUNTER → 2021-12-07 09:52 | Outpatient (BNVA) | payer MEDICARE, OTHER, SELFPAY | PROVIDERS: PCP Family Medicine; Visit Provider Family Medicine | DX: L97.522 Non-pressure chronic ulcer of other part of left foot with fat layer exposed (principal); T73.3XXS Exhaustion due to excessive exertion, sequela; E11.42 Type 2 diabetes mellitus with diabetic polyneuropathy; F41.9 Anxiety disorder, unspecified; J45.909 Unspecified asthma, uncomplicated; L84 Corns and callosities | CPT/HCPCS: 80053; 80061; 83036; 84439; 84443; 85025 ==

== ENCOUNTER → 2022-02-26 09:57 | Outpatient (BNVA) | payer MEDICARE, OTHER, SELFPAY | PROVIDERS: PCP Family Medicine; Visit Provider Family Medicine | DX: M17.11 Unilateral primary osteoarthritis, right knee (principal); M25.461 Effusion, right knee | CPT/HCPCS: 73562 ==

== ENCOUNTER → 2022-02-28 09:40 | Outpatient (BNVA) | payer MEDICARE, OTHER, SELFPAY | PROVIDERS: PCP Family Medicine; Referring Provider Family Medicine; Visit Provider Otolaryngology | DX: K13.70 Unspecified lesions of oral mucosa (principal); H60.543 Acute eczematoid otitis externa, bilateral; Z87.891 Personal history of nicotine dependence | CPT/HCPCS: 99203; 99204 ==

== ENCOUNTER → 2022-03-28 08:04 | Outpatient (BNVA) | payer MEDICARE, OTHER, SELFPAY | PROVIDERS: PCP Family Medicine; Referring Provider Family Medicine; Visit Provider Specialist | DX: M17.11 Unilateral primary osteoarthritis, right knee (principal); M25.561 Pain in right knee; H60.543 Acute eczematoid otitis externa, bilateral; K13.70 Unspecified lesions of oral mucosa; Z87.891 Personal history of nicotine dependence | CPT/HCPCS: 20610; 73560; 73565; 99203; 99204; 99213; J7326 ==

== ENCOUNTER → 2022-05-09 11:24 | Outpatient (BNVA) | payer MEDICARE, OTHER, SELFPAY | PROVIDERS: PCP Family Medicine; Visit Provider Family Medicine | DX: E11.42 Type 2 diabetes mellitus with diabetic polyneuropathy (principal); D64.9 Anemia, unspecified; J45.909 Unspecified asthma, uncomplicated; T73.3XXS Exhaustion due to excessive exertion, sequela; F41.9 Anxiety disorder, unspecified | CPT/HCPCS: 83036; 85025 ==

== ENCOUNTER → 2022-07-11 09:44 | Outpatient (BNVA) | payer MEDICARE, OTHER, SELFPAY | PROVIDERS: PCP Family Medicine; Visit Provider Specialist | DX: M17.11 Unilateral primary osteoarthritis, right knee (principal); M21.061 Valgus deformity, not elsewhere classified, right knee | CPT/HCPCS: 99213 ==

== ENCOUNTER → 2022-08-14 09:08 | Outpatient (BNVA) | payer MEDICARE, OTHER, SELFPAY | PROVIDERS: PCP Family Medicine; Visit Provider Family Medicine | DX: R30.0 Dysuria (principal); N20.0 Calculus of kidney; F41.9 Anxiety disorder, unspecified | CPT/HCPCS: 81003; 87077; 87086; 87184 ==

== ENCOUNTER 2022-08-20 15:12 | Outpatient (CLI) | payer MEDICARE, OTHER, SELFPAY ==
--- NOTE | 2022-08-20 15:30 | CT_ITS ---
WS: [id number] CT RIGHT KNEE, NONCONTRAST [facility] protocol TECHNIQUE: Noncontrast CT of the RIGHT knee to include the RIGHT hip and ankle [facility] protocol CLINICAL INFORMATION: M21.061 - Valgus deformity, not elsewhere classified, rig... COMPARISON: None. DLP: [address] scans at [facility] use at least one of these dose optimization techniques: automated e xposure control; mA and/or kV adjustment per patient size (includes targeted exams where dose is matc hed to clinical indication); or iterative reconstruction. FINDINGS: Moderate to advanced tricompartmental arthritis worse in the lateral joint compartment. Small suprapa tellar effusion. Hypertrophic patella. Hypertrophic changes along the joint line. Degenerative arthritis both sacroiliac joints. Air-fluid level in the bladder. Associated air within the bladder wall. 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 Trace free fluid in the pelvis. Sigmoid diverticulosis. CT/CT knee RT [facility] IMPRESSION: 1. Images obtained for preoperative purposes. 2. Air-fluid level in the bladder with mild bladder wall thickening. Associate d air within the bladder wall suspicious for emphysematous cystitis. Recommend correlation for urinary tract infection. Consider urology consultation. 3. Sigmoid diverticulosis. Discussed with Karen Gustafson MD at 08/20/2022 4:29 PM.
== END 2022-08-20 15:13 | disposition home or self-care (01) ==
LOC: RAD 15:12
PROVIDERS: PCP Family Medicine; Visit Provider Specialist
DX: M21.061 Valgus deformity, not elsewhere classified, right knee (principal); M17.11 Unilateral primary osteoarthritis, right knee; K57.30 Diverticulosis of large intestine without perforation or abscess without bleeding
CPT/HCPCS: 73700

== ENCOUNTER → 2022-08-22 12:46 | Outpatient (BNVA) | payer MEDICARE, OTHER, SELFPAY | PROVIDERS: PCP Family Medicine; Visit Provider Urology | DX: N30.20 Other chronic cystitis without hematuria (principal); N32.89 Other specified disorders of bladder; N31.8 Other neuromuscular dysfunction of bladder; R33.9 Retention of urine, unspecified; R30.0 Dysuria; R39.89 Other symptoms and signs involving the genitourinary system; M17.11 Unilateral primary osteoarthritis, right knee; M21.061 Valgus deformity, not elsewhere classified, right knee | CPT/HCPCS: 52000; 81003; 87086; 99204; 99213 ==

== ENCOUNTER 2022-08-28 01:22 | Outpatient (CLI) | payer MEDICARE, OTHER, SELFPAY | END 2022-08-28 23:00 | disposition home or self-care (01) | LOC: RAD 09-12 09:36 | PROVIDERS: PCP Family Medicine; Visit Provider Urology | DX: R11.2 Nausea with vomiting, unspecified (principal) | CPT/HCPCS: 80053; 85025 ==

== ENCOUNTER → 2022-10-03 13:45 | Outpatient (BNVA) | payer MEDICARE, OTHER, SELFPAY | PROVIDERS: PCP Family Medicine; Visit Provider Family Medicine | DX: R10.2 Pelvic and perineal pain (principal) | CPT/HCPCS: 81000 ==

== ENCOUNTER 2022-10-05 10:07 | Outpatient (CLI) | payer MEDICARE, OTHER, SELFPAY ==
--- NOTE | 2022-10-05 10:30 | CT_ITS ---
WS: [id number] EXAMINATION: CT abdomen pelvis wo con [id number] REASON FOR EXAM: Detrusor dysfunction COMPARISON: 04/09/2013 ORDER DATE: 10/05/2022 10:46 AM TOTAL EXAM DLP: 1172.[address] scans at [facility] use at least one of these dose optimization techniques: automated e xposure control; mA and/or kV adjustment per patient size (includes targeted exams where dose is matc hed to clinical indication); or iterative reconstruction. TECHNIQUE: Axial CT imaging of the abdomen and pelvis performed without oral or intravenous contrast. 2-D Reformatted images are obtained. Evaluation of solid organs, bowel wall and vascular structures is limited due to the lack of IV contr ast. FINDINGS: Lung bases are clear clear with no cardiomegaly. Small hiatal hernia at the GE junction. Liver is moderately enlarged measuring 19 cm in length. No intrahepatic dilatation. Spleen and pancreas are normal. There is a very dilated gallbladder containing a few tiny calculi with no wall t hickening. No adrenal mass. No renal stone or obstruction. There is no perinephric stranding. Minimal scattered calcified plaque within the infrarenal abdominal aorta. No aneurysmal dilatation. There is no adenopathy or free fluid throughout the abdomen or pelvis. There is moderate distention o f the urinary bladder.. Status post hysterectomy. Unremarkable appearance to the GI tract. Scattered diverticulosis. Normal appendix. No sign of acute diverticulitis. Lumbar vertebral bodies demonstrate no compression fracture. Slight anterolisthesis of L3 with respect to L4. Marginal osteophytes from the lower thoracic spine. CT/CT abdomen pelvis con [id number] Impression: Very distended gallbladder possible hydrops containing one or 2 very small calc ignacio Clinical correlation for possible cystic duct obstruction, recommend nuclear HI DA scan if clinically indicated.
== END 2022-10-05 10:08 | disposition home or self-care (01) ==
LOC: RAD 10:08
PROVIDERS: PCP Family Medicine; Visit Provider Urology
DX: N30.20 Other chronic cystitis without hematuria (principal); R33.9 Retention of urine, unspecified; R39.89 Other symptoms and signs involving the genitourinary system; N31.8 Other neuromuscular dysfunction of bladder
CPT/HCPCS: 51798; 74176; 99213

== ENCOUNTER 2022-12-25 10:38 | Oncology outpatient (recurring) (ONCR) | payer MEDICARE, OTHER, SELFPAY ==
[2022-12-25 12:06] LABS: Basophils % 0.4 %; Hematocrit 26.8 % (37.0-47.0); Hemoglobin 8.4 g/dL (11.5-15.3); Lymphocytes % 29.6 %; Mean Corpuscular HGB Conc 31.3 g/dL (30.0-36.0); Mean Corpuscular Hemoglobin 27.8 pg (28.0-34.0); Mean Corpuscular Volume 88.7 fl (81-99); Mean Platelet Volume 10.9 fL (7.4-10.4); Monocytes # 0.5 10^3/uL (0.2-0.9); Monocytes % 7.8 %; Neutrophils # 4.16 10^3/uL (1.8-7.7); Neutrophils % 61.5 %; Nucleated Red Blood Cells % 0 %; Platelet Count 288 10^3/cmm (130-400); Red Blood Count 3.02 10^6/uL (4.1-5.3); Red Cell Distribution Width 15.6 % (12.1-15.1); Reticulocyte % 3.7 % (0.5-2.0); White Blood Count 6.8 10^3/uL (4.0-10.0)
[2022-12-25 12:10] LABS: Erythrocyte Sedimentation Rate 8 mm/hr (0-15)
[2022-12-25 12:43] LABS: Alanine Aminotransferase 11 U/L (0-33); Albumin Level 4.5 g/dL (3.5-5.2); Alkaline Phosphatase 79 U/L (35-105); Anion Gap 20.1 (5-19); Aspartate Amino Transferase 18 U/L (0-32); Blood Urea Nitrogen 29 mg/dL (8-23); Calcium 9.8 mg/dL (8.5-10.5); Carbon Dioxide 25 mmol/L (22-29); Chloride 97 mmol/L (98-107); Ferritin 10 ng/mL (15-150); Folate Level 19.2 ng/mL (4.8-37.3); Globulin 2.7 g/dL (1.3-4.6); Glomerular Filtration Rate 37.3 mL/min (90-130); Glucose 129 mg/dL (65-115); Iron 52 ug/dL (37-145); Lactate Dehydrogenase 173 U/L (135-214); Osmolality Calculated 294 mOsm/kg (285-295); Percent Saturation 11.7 % (20-50); Potassium 4.1 mmol/L (3.5-5.1); Sodium 138 mmol/L (136-145); Total Bilirubin 0.2 mg/dL (0.15-1.2); Total Iron Binding Capacity 441 mcg/dl; Total Protein 7.2 g/dL (6.6-8.7); Unsaturated Iron Binding 389 ug/dL (112-347)
[2022-12-25 12:44] LABS: Thyroid Stimulating Hormone 0.88 uIU/mL (0.27-4.20); Vitamin B12 623 pg/mL (232-1245)
[2022-12-25 13:17] LABS: LAB Peripheral Smear Sent for Review
[2022-12-26 14:18] LABS: KAPPA LIGHT CHAIN, FREE, SERUM 64.8 mg/L (3.3-19.4); KAPPA/LAMBDA LIGHT CHAINS FREE 1.33 (0.26-1.65); LAMBDA LIGHT CHAIN, FREE, SERU 48.9 mg/L (5.7-26.3)
[2022-12-26 16:20] LABS: ALPHA 1 GLOBULIN 0.3 g/dL (0.2-0.3); ALPHA 2 GLOBULIN 0.8 g/dL (0.5-0.9); BETA 1 GLOBULIN 0.6 g/dL (0.4-0.6); BETA 2 GLOBULIN 0.3 g/dL (0.2-0.5); GAMMA GLOBULIN 0.9 g/dL (0.8-1.7)
== END 2022-12-25 23:59 | disposition home or self-care (01) ==
LOC: ONCMED 10:39
PROVIDERS: PCP Family Medicine; Visit Provider Internal Medicine Medical Oncology
DX: D64.9 Anemia, unspecified (principal); Z79.899 Other long term (current) drug therapy; Z87.891 Personal history of nicotine dependence
CPT/HCPCS: 80053; 82607; 82728; 82746; 83010; 83540; 83550; 83615; 83883; 84155; 84165; 84443; 85025; 85045; 85651; 86140; 99204; 99214; 99215

== ENCOUNTER → 2023-01-02 08:33 | Outpatient (BNVA) | payer MEDICARE, OTHER, SELFPAY | PROVIDERS: PCP Family Medicine; Visit Provider Specialist | DX: M17.11 Unilateral primary osteoarthritis, right knee (principal) | CPT/HCPCS: 99213 ==

== ENCOUNTER 2023-01-15 15:00 | Oncology outpatient (recurring) (ONCR) | payer MEDICARE, OTHER, SELFPAY ==
[2023-01-08 12:30] VITALS: BP 136/74; PULSE 63; RESP 18; TEMP 36.9; O2SAT 98
[2023-01-08] MEDS: ferric carboxy (IVPB) 750 MG in sodium chloride 0.9% (100 ml) 100 ML 345 MG IV (12:43)
[2023-01-08] MEDS: sodium chloride 0.9% 250 ML 100 ML IV (12:44)
[2023-01-08 13:15] VITALS: BP 127/66; PULSE 67; RESP 17; TEMP 36.8; O2SAT 98
[2023-01-15] MEDS: sodium chloride 0.9% 250 ML 75 ML IV (11:29)
[2023-01-15 11:33] VITALS: BP 150/71; PULSE 69; RESP 18; TEMP 36.2; O2SAT 98
[2023-01-15] MEDS: ferric carboxy (IVPB) 750 MG in sodium chloride 0.9% (100 ml) 100 ML 345 MG IV (11:54)
[2023-01-15 12:28] VITALS: BP 129/64; PULSE 65; RESP 16; TEMP 36.5; O2SAT 98
== END 2023-01-25 23:59 | disposition home or self-care (01) ==
PROVIDERS: PCP Family Medicine; Visit Provider Internal Medicine Medical Oncology
DX: D50.9 Iron deficiency anemia, unspecified (principal); Z79.899 Other long term (current) drug therapy
CPT/HCPCS: 96365; J1439; J7050

== ENCOUNTER → 2023-01-31 10:48 | Outpatient (BNVA) | payer MEDICARE, OTHER, SELFPAY | PROVIDERS: PCP Family Medicine; Visit Provider Urology | DX: N31.8 Other neuromuscular dysfunction of bladder (principal); R33.9 Retention of urine, unspecified; Z79.2 Long term (current) use of antibiotics; N30.20 Other chronic cystitis without hematuria; R30.0 Dysuria | CPT/HCPCS: 51798; 87077; 87086; 87186; 99213 ==

== ENCOUNTER 2023-02-19 10:02 | Oncology outpatient (recurring) (ONCR) | payer MEDICARE, OTHER, SELFPAY ==
[2023-02-19 10:22] LABS: Basophils % 0.5 %; Hemoglobin 10.5 g/dL (11.5-15.3); Lymphocytes # 2.3 10^3/uL (0.8-4.8); Lymphocytes % 29.9 %; Mean Corpuscular HGB Conc 33.9 g/dL (30.0-36.0); Mean Corpuscular Hemoglobin 30.5 pg (28.0-34.0); Mean Corpuscular Volume 90.1 fl (81-99); Monocytes # 0.7 10^3/uL (0.2-0.9); Monocytes % 8.6 %; Neutrophils # 4.58 10^3/uL (1.8-7.7); Neutrophils % 60.2 %; Nucleated Red Blood Cells % 0 %; Platelet Count 276 10^3/cmm (130-400); Red Blood Count 3.44 10^6/uL (4.1-5.3); Red Cell Distribution Width 17.3 % (12.1-15.1); White Blood Count 7.6 10^3/uL (4.0-10.0)
[2023-02-19 10:44] LABS: Alanine Aminotransferase 13 U/L (0-33); Albumin Level 4.6 g/dL (3.5-5.2); Alkaline Phosphatase 65 U/L (35-105); Anion Gap 19.5 (5-19); Aspartate Amino Transferase 7 U/L (0-32); Blood Urea Nitrogen 23 mg/dL (8-23); Calcium 9.7 mg/dL (8.5-10.5); Carbon Dioxide 24 mmol/L (22-29); Chloride 101 mmol/L (98-107); Ferritin 499 ng/mL (15-150); Globulin 2.9 g/dL (1.3-4.6); Glucose 94 mg/dL (65-115); Iron 92 ug/dL (37-145); Osmolality Calculated 295 mOsm/kg (285-295); Percent Saturation 28.7 % (20-50); Potassium 3.5 mmol/L (3.5-5.1); Sodium 141 mmol/L (136-145); Total Bilirubin 0.2 mg/dL (0.15-1.2); Total Iron Binding Capacity 320 mcg/dl; Total Protein 7.5 g/dL (6.6-8.7); Unsaturated Iron Binding 228 ug/dL (112-347)
== END 2023-02-24 23:59 | disposition home or self-care (01) ==
LOC: ONCMED 10:03
PROVIDERS: PCP Family Medicine; Visit Provider Internal Medicine Medical Oncology
DX: D64.9 Anemia, unspecified (principal)
CPT/HCPCS: 80053; 82728; 83540; 83550; 85025; 99214

== ENCOUNTER → 2023-02-25 14:41 | Outpatient (BNVA) | payer MEDICARE, OTHER, SELFPAY | PROVIDERS: PCP Family Medicine; Visit Provider Dermatology | DX: L21.8 Other seborrheic dermatitis (principal); L81.4 Other melanin hyperpigmentation; Z85.828 Personal history of other malignant neoplasm of skin; L57.8 Other skin changes due to chronic exposure to nonionizing radiation | CPT/HCPCS: 99213; 99214 ==

== ENCOUNTER → 2023-02-25 15:54 | Outpatient (BNVA) | payer MEDICARE, OTHER, SELFPAY | PROVIDERS: PCP Family Medicine; Visit Provider Urology | DX: D50.9 Iron deficiency anemia, unspecified (principal); N30.20 Other chronic cystitis without hematuria; R33.9 Retention of urine, unspecified; Z87.440 Personal history of urinary (tract) infections; R35.1 Nocturia | CPT/HCPCS: 51798; 81003; 99214 ==

== ENCOUNTER → 2023-04-22 09:00 | Outpatient (BNVA) | payer MEDICARE, OTHER, SELFPAY | PROVIDERS: PCP Family Medicine; Visit Provider Urology | DX: N30.20 Other chronic cystitis without hematuria (principal); N31.8 Other neuromuscular dysfunction of bladder; R33.9 Retention of urine, unspecified; R35.89 Other polyuria | CPT/HCPCS: 51798; 81003; 99213 ==

== ENCOUNTER 2023-05-07 14:20 | Oncology outpatient (recurring) (ONCR) | payer MEDICARE, OTHER, SELFPAY ==
[2023-05-07 16:07] LABS: Basophils % 0.3 %; Hematocrit 26.8 % (37.0-47.0); Hemoglobin 9.2 g/dL (11.5-15.3); Lymphocytes # 2.1 10^3/uL (0.8-4.8); Lymphocytes % 26.6 %; Mean Corpuscular HGB Conc 34.3 g/dL (30.0-36.0); Mean Corpuscular Hemoglobin 32.7 pg (28.0-34.0); Mean Corpuscular Volume 95.4 fl (81-99); Mean Platelet Volume 10.5 fL (7.4-10.4); Monocytes # 0.5 10^3/uL (0.2-0.9); Monocytes % 6.5 %; Neutrophils # 5.12 10^3/uL (1.8-7.7); Neutrophils % 66.2 %; Nucleated Red Blood Cells % 0 %; Platelet Count 237 10^3/cmm (130-400); Red Blood Count 2.81 10^6/uL (4.1-5.3); Red Cell Distribution Width 14.2 % (12.1-15.1); White Blood Count 7.7 10^3/uL (4.0-10.0)
[2023-05-07 16:22] LABS: Alanine Aminotransferase 6 U/L (0-33); Albumin Level 4.5 g/dL (3.5-5.2); Alkaline Phosphatase 65 U/L (35-105); Anion Gap 17.2 (5-19); Aspartate Amino Transferase 15 U/L (0-32); Blood Urea Nitrogen 26 mg/dL (8-23); Calcium 9.5 mg/dL (8.5-10.5); Carbon Dioxide 28 mmol/L (22-29); Chloride 101 mmol/L (98-107); Ferritin 256 ng/mL (15-150); Globulin 2.4 g/dL (1.3-4.6); Glomerular Filtration Rate 27.8 mL/min (90-130); Glucose 141 mg/dL (65-115); Iron 76 ug/dL (37-145); Osmolality Calculated 303 mOsm/kg (285-295); Percent Saturation 24.5 % (20-50); Potassium 3.2 mmol/L (3.5-5.1); Sodium 143 mmol/L (136-145); Total Bilirubin 0.2 mg/dL (0.15-1.2); Total Iron Binding Capacity 310 mcg/dl; Total Protein 6.9 g/dL (6.6-8.7); Unsaturated Iron Binding 234 ug/dL (112-347)
== END 2023-05-27 23:59 | disposition home or self-care (01) ==
PROVIDERS: Nurse Practitioner Family; PCP Family Medicine; Visit Provider Internal Medicine Medical Oncology
DX: D50.9 Iron deficiency anemia, unspecified (principal)
CPT/HCPCS: 36415; 51798; 80053; 81003; 82728; 83540; 83550; 85025; 99213; 99214

== ENCOUNTER → 2023-05-08 14:05 | Outpatient (BNVA) | payer MEDICARE, OTHER, SELFPAY | PROVIDERS: PCP Family Medicine; Visit Provider Family Medicine | DX: E11.9 Type 2 diabetes mellitus without complications (principal) | CPT/HCPCS: 83036 ==

== ENCOUNTER → 2023-06-20 10:42 | Outpatient (BNVA) | payer MEDICARE, OTHER, SELFPAY | PROVIDERS: PCP Family Medicine; Visit Provider Nurse Practitioner Family | DX: L57.0 Actinic keratosis (principal); L82.1 Other seborrheic keratosis; L57.8 Other skin changes due to chronic exposure to nonionizing radiation; D22.5 Melanocytic nevi of trunk; L81.4 Other melanin hyperpigmentation | CPT/HCPCS: 17000; 17003; 99213 ==

== ENCOUNTER 2023-07-04 12:46 | Oncology outpatient (recurring) (ONCR) | payer MEDICARE, OTHER, SELFPAY ==
[2023-07-04 13:30] VITALS: BP 146/53; PULSE 67; RESP 18; TEMP 36.4; O2SAT 98
[2023-07-04 13:42] LABS: Basophils % 0.3 %; Hematocrit 29.3 % (36-47); Lymphocytes # 1.6 10^3/uL (0.8-4.8); Lymphocytes % 25.7 %; Mean Corpuscular HGB Conc 32.4 g/dL (30-55); Mean Corpuscular Volume 95.8 fl (85-98); Mean Platelet Volume 10.6 fL (7.4-10.4); Monocytes # 0.4 10^3/uL (0.2-0.9); Monocytes % 6.4 %; Neutrophils # 4.26 10^3/uL (1.8-7.7); Neutrophils % 66.8 %; Nucleated Red Blood Cells % 0 %; Platelet Count 234 10^3/cmm (157-399); Red Blood Count 3.06 10^6/uL (3.85-5.65); Red Cell Distribution Width 13.9 % (12.1-15.1); White Blood Count 6.38 10^3/uL (3.29-11.43)
[2023-07-04 14:08] LABS: Ferritin 168 ng/mL (15-150); Iron 56 ug/dL (37-145); Percent Saturation 16.1 % (20-50); Total Iron Binding Capacity 346 mcg/dl; Unsaturated Iron Binding 290 ug/dL (112-347)
[2023-07-04] MEDS: ferric carboxy (IVPB) 750 MG in sodium chloride 0.9% (100 ml) 100 ML 345 MG IV (15:56)
[2023-07-04] MEDS: sodium chloride 0.9% 250 ML 75 ML IV (15:56)
[2023-07-04 16:27] VITALS: BP 157/60; PULSE 63; RESP 18; TEMP 36.3; O2SAT 96
== END 2023-07-27 23:59 | disposition home or self-care (01) ==
PROVIDERS: Nurse Practitioner Family; PCP Family Medicine; Visit Provider Internal Medicine Medical Oncology
DX: D64.9 Anemia, unspecified (principal); E61.1 Iron deficiency; D50.9 Iron deficiency anemia, unspecified; I10 Essential (primary) hypertension; E78.5 Hyperlipidemia, unspecified
CPT/HCPCS: 82728; 83540; 83550; 85025; 96365; 99214; J1439; J7050

== ENCOUNTER → 2023-07-08 10:07 | Outpatient (BNVA) | payer MEDICARE, OTHER, SELFPAY | PROVIDERS: PCP Family Medicine; Visit Provider Specialist | DX: M17.11 Unilateral primary osteoarthritis, right knee (principal); M21.061 Valgus deformity, not elsewhere classified, right knee; Z01.818 Encounter for other preprocedural examination; E11.42 Type 2 diabetes mellitus with diabetic polyneuropathy; Z79.84 Long term (current) use of oral hypoglycemic drugs | CPT/HCPCS: 36415; 73560; 73565; 80053; 81001; 83036; 85025; 99214 ==

== ENCOUNTER → 2023-07-09 10:31 | Outpatient (BNVA) | payer MEDICARE, OTHER, SELFPAY | PROVIDERS: PCP Family Medicine; Visit Provider Surgery | DX: D50.9 Iron deficiency anemia, unspecified (principal) | CPT/HCPCS: 99203 ==

== ENCOUNTER 2023-07-17 06:35 | Day surgery (SDC) | payer MEDICARE, OTHER, SELFPAY ==
[2023-07-15 09:40] VITALS: BMI 34.2
[2023-07-17 07:22] VITALS: BP 171/83; PULSE 75; RESP 18; TEMP 35.7; O2SAT 96; BMI 34.2
[2023-07-17] MEDS: sodium chloride 0.9% 1,000 ML 30 ML IV (07:28)
--- NOTE | 2023-07-17 07:39 | ANES.PREANE2 ---
Pre-Anesthetic Assessment Height/Weight: Height 1.65 m Weight 93.44 kg Temp Pulse Resp BP Pulse Ox O2 Del Method 96.3 F L 75 18 171/83 96 Room Air 07/17/23 07:22 07/17/23 07:22 07/17/23 07:22 07/17/23 07:22 07/17/23 07:22 07/17/23 07:22 Operation Date: 07/17/23 08:00 Proposed Procedures p Colonoscopy 35818,D50.9(Not Applicable) - Bernard Cartwright DO Familial anesthetic complications: None Was Beta Efren taken within 24 hours: N/A (Last took Saturday; did not take any medications yesterday) Was Clonidine taken within 24 hours: N/A Last intake: Intake Last Liquid Date 07/16/23 Last Liquid Time 22:00 Last Solid Date 07/15/23 Last Solid Time 15:00 Social Alcohol (Once a month) and No tobacco (Eats THC gummies every once in a while) Exam alert, oriented x 3, clear to auscultation bilaterally and regular rate & rhythm Airway Submandibular: within normal limits Cervical ROM: within normal limits Mallampati: Class II Comments: Comments: Some missing History/ROS No significant history except as noted and No significant complaints Pulmonary Asthma, Chronic Obstructive Pulmonary Disease, Exertional Dyspnea and Sleep Apnea (Does not use CPAP) CV/HEM Atrial Fibrillation (Until valve replaced, now in NSR), Anemia, Coronary Artery Disease, Hypertension, Myocardial Infarction (No intervention), Murmur (Aortic valve replacement in 2018; follows with cardiology, last saw one year ago) and Palpitations Urinary Tract Infection Hepatic None reported GI Gastroesophageal Reflux Disease (Controlled with medications), Hiatal Hernia and Peptic Ulcer Disease Metabolic Diabetes Mellitus, Hyperlipidemia and Morbid Obesity [facility] [place] Osteoarthritis/DJD and Weakness Neuropsych Anxiety, Cerebrovascular Accident (x3, last one was in 1993, left sided weakness), Depression, Neuropathy and Transient Ischemic Attack Anesthetic Plan ASA status: 3 Anesthesia: Anesthesia Evaluation, General and MAC Risk of > 500 ml blood loss (7ml/kg in children): No Medications/Allergies Home Medications Medication Instructions Recorded Confirmed Last Taken Type acetaminophen 650 mg 650 mg PO ONCE 10/22/19 07/15/23 07/15/23 History tablet,extended release aspirin 81 mg tablet,delayed 81 mg PO ONCE 10/22/19 07/15/2307/15/23 History release (Adult Aspirin Regimen) mecobalamin (vitamin B12) 1,000 1,000 mcg PO ONCE 10/22/19 07/15/23 07/15/23 History mcg disintegrating tablet,sublingual multivitamin 1 tab PO QAM 10/22/19 07/15/23 07/15/23 History blood sugar diagnostic (Blood #400 ea 04/27/21 07/12/23 07/15/23 Rx Glucose Test strips) cholecalciferol (vitamin D3) 125 5,000 unit PO ONCE #90 caps 05/02/21 07/15/23 07/15/23 Rx mcg (5,000 unit) capsule diabetic supplies, miscellan. #1 ea 05/15/21 07/12/23 07/15/23 Rx alfuzosin 10 mg tablet,extended 10 mg PO DAILY #90 tabs 08/22/22 07/15/23 07/15/23 Rx release 24 hr methenamine hippurate 1 gram tablet 1 g PO BID Recurrent UTI #180 tabs 08/22/22 07/15/23 07/15/23 Rx amlodipine 2.5 mg tablet 2.5 mg PO DAILY #90 tabs 10/03/22 07/15/23 07/15/23 Rx metoprolol tartrate 25 mg tablet 25 mg PO BID #180 tabs 11/28/22 07/15/23 07/15/23 Rx simvastatin 20 mg tablet 20 mg PO DAILY #90 tabs 11/28/22 07/15/23 07/15/23 Rx cranberry fruit concentrate 250 mg 250 mg PO DAILY 02/11/23 07/15/23 07/15/23 History chewable tablet (Azo Cranberry) sertraline 100 mg tablet (Zoloft) 200 mg PO DAILY #180 tabs 02/11/23 07/15/23 07/15/23 Rx nystatin 100,000 unit/gram topical 1 applic topical BID PRN .yeast 02/19/23 07/15/23 07/15/23 History powder infection triamterene 37.5 1 tab PO QAM #90 tabs 02/21/23 07/15/23 07/15/23 Rx mg-hydrochlorothiazide 25 mg tablet Diabetic Shoes #1 ea 05/08/23 07/12/23 07/15/23 Rx albuterol sulfate 2.5 mg/3 mL 2.5 mg (3 mL) inhalation Q6H #75 mL 07/12/23 07/15/23 07/15/23 Rx (0.083 %) solution for nebulization albuterol sulfate 90 mcg/actuation 2 puff inhalation QID PRN Wheezing 07/12/23 07/15/23 07/15/23 Rx aerosol inhaler (ProAir HFA) #8.5 grams carbidopa ER 25 mg-levodopa 100 mg 1 tab PO DAILY #90 tabs 07/12/23 07/15/23 07/15/23 Rx tablet,extended release epinephrine 0.3 mg/0.3 mL 0.3 mg (0.3 mL) IM ONCE #2 ea 07/12/23 07/15/23 Unknown Rx injection, auto-injector (EpiPen 2-Jacobo) esomeprazole magnesium 40 mg 40 mg PO DAILY #90 caps 07/12/23 07/15/23 07/15/23 Rx capsule,delayed release (Nexium) exenatide microspheres 2 mg/0.85 2 mg (0.85 mL) SUBCUT Q7D #10.2 mL 07/12/23 07/15/23 07/06/23 Rx mL subcutaneous auto-injector ([employer]) fluticasone 250 mcg-salmeterol 50 1 inh inhalation BID #180 ea 07/12/23 07/15/23 07/15/23 Rx mcg/dose blistr powdr for inhalation (Advair Diskus) furosemide 40 mg tablet 40 mg PO Q6H #120 tabs 07/12/23 07/15/23 07/15/23 Rx gabapentin 100 mg capsule 100 mg PO Q6H #360 caps 07/12/23 07/15/23 07/15/23 Rx isosorbide mononitrate 30 mg 30 mg PO QAM #90 tabs 07/12/23 07/15/23 07/15/23 Rx tablet,extended release 24 hr lancets 33 gauge (Maryuch Delbryan #400 ea 07/12/23 07/12/23 07/15/23 Rx Plus Lancet) lorazepam 1 mg tablet 1 mg PO BID PRN anxiety #60 tabs 07/12/23 07/15/23 2 Weeks Ago Rx ~07/01/23 metformin 1,000 mg tablet,extended 1,000 mg PO BID #180 tabs 07/12/23 07/15/23 07/15/23 Rx release 24hr metoprolol tartrate 100 mg tablet 50 mg PO BID #90 tabs 07/12/23 07/15/23 07/15/23 Rx potassium chloride 20 mEq 20 meq PO DAILY #30 tabs 07/12/23 07/15/23 07/15/23 Rx tablet,extended release Allergies Allergy/AdvReac Type Severity Reaction Status Date / Time bee venom protein (honey bee) Allergy ALGY-Anaphy Verified 07/15/23 09:17 laxis erythromycin base Allergy ADR-Nausea Verified 07/15/23 09:17 milnacipran [From Savella] Allergy ALGY-Anaphy Verified 07/15/23 09:17 laxis naproxen Allergy ALGY-Anaphy Verified 07/15/23 09:17 laxis Sulfa (Sulfonamide Allergy ALGY-Anaphy Verified 07/15/23 09:17 Antibiotics) laxis Current Medications Generic Name Dose Route Start Last Admin Trade Name Freq PRN Reason Stop Dose Admin Sodium Chloride 1,000 mls @ 30 mls/hr 07/17/23 07:00 07/17/23 07:28 Sodium Chloride 0.9% IV 07/18/23 06:59 30 mls/hr .Q24H CAROL Administration PFSH Anesthesia Medical History Anemia Anxiety Asthma Chronic cystitis COPD (chronic obstructive pulmonary disease) Depression, controlled Diabetic mononeuropathy associated with diabetes mellitus due to underlying condition Fibromyalgia Flaccid bladder Gastro-esophageal reflux disease without esophagitis History of nonmelanoma skin cancer Hypertension Mixed hyperlipidemia Polyuria Post-traumatic stress disorder, chronic Psychiatric care Renal insufficiency, mild Type 2 diabetes mellitus Surgical History Aortic valve replaced H/O breast biopsy H/O: hysterectomy History of cataract surgery BILATERAL History of foot surgery left foot Hx of tonsillectomy Status post extracorporeal shock wave therapy Family History Mother , AT AGE 83 Pneumonia DVT (deep venous thrombosis) Father , AT AGE 85 Cancer LUNG Other Hypertension Social History Smoking and tobacco status: former smoker Quit status (tobacco): has quit using tobacco Year quit tobacco: 1987 Former quit date comment: Hx of 0.5 PPD x 20 Years Second hand smoke exposure: Yes Smoking risk assessment/counseling performed?: No Alcohol intake: current Alcohol intake frequency: holidays/special occasions only Counseling given: No Substance/Drug Use: never Counseling given: No Lives independently: Yes Household members: spouse Marital status: Current occupational status: retired Sexually active: No Do you think of yourself as: Straight/Heterosexual Current gender identity: Female Data Anesthesia Cardiac Studies: No Data to Display
[2023-07-17 07:41] LABS: Glucose Point of Care 141 mg/dL (70-110)
--- NOTE | 2023-07-17 07:58 | W.PM.OPSUD ---
Surgery/Procedure H&P Update DATE OF PROCEDURE: July 17, 2023 DATE H&P PERFORMED: 07/09/23 H&P UPDATE INFORMATION: I have reviewed H&P completed within last 30 days, I have examined patient prior to procedure and No changes to prior documentation PLANNED PROCEDURE: Operation Date: 07/17/23 08:00 Proposed Procedures p Colonoscopy 02473,D50.9(Not Applicable) - Bernard Cartwright, DO
[2023-07-17 08:39] VITALS: BP 162/82; PULSE 64; RESP 16; TEMP 36.3; O2SAT 98
[2023-07-17 08:52] VITALS: BP 167/87; PULSE 67; RESP 16; O2SAT 100
== END 2023-07-17 09:05 | disposition home or self-care (01) ==
PROVIDERS: PCP Family Medicine; Visit Provider Surgery
PROC: 0DJD8ZZ Inspection of Lower Intestinal Tract, Via Natural or Artificial Opening Endoscopic (ICD-10-PCS; CPT 45378; principal; 2023-07-17 08:00)
PROC: 0DJ08ZZ Inspection of Upper Intestinal Tract, Via Natural or Artificial Opening Endoscopic (ICD-10-PCS; CPT 43235; 2023-07-17 08:00)
DX: D50.9 Iron deficiency anemia, unspecified (principal); K57.30 Diverticulosis of large intestine without perforation or abscess without bleeding; K64.8 Other hemorrhoids; I85.00 Esophageal varices without bleeding; K29.70 Gastritis, unspecified, without bleeding; J44.9 Chronic obstructive pulmonary disease, unspecified; G47.30 Sleep apnea, unspecified; I25.10 Atherosclerotic heart disease of native coronary artery without angina pectoris; I10 Essential (primary) hypertension; I25.2 Old myocardial infarction; E66.01 Morbid (severe) obesity due to excess calories; Z68.34 Body mass index [BMI] 34.0-34.9, adult; Z79.82 Long term (current) use of aspirin; E11.40 Type 2 diabetes mellitus with diabetic neuropathy, unspecified; Z79.84 Long term (current) use of oral hypoglycemic drugs; M79.7 Fibromyalgia; E78.2 Mixed hyperlipidemia; Z87.891 Personal history of nicotine dependence
CPT/HCPCS: 36416; 43239; 45378; 81003; 82962; 85025; 88305; 88342; G0121; J2704; J7030

== ENCOUNTER 2023-07-19 13:59 | Outpatient (CLI) | payer MEDICARE, OTHER, SELFPAY ==
[2023-07-19 14:26] LABS: Basophils # 0.1 10^3/uL (0.0-0.1); Basophils % 0.5 %; Hematocrit 30.5 % (36-47); Lymphocytes # 2.8 10^3/uL (0.8-4.8); Lymphocytes % 28.4 %; Mean Corpuscular HGB Conc 34.1 g/dL (30-55); Mean Corpuscular Volume 90.8 fl (85-98); Mean Platelet Volume 9.9 fL (7.4-10.4); Monocytes # 0.7 10^3/uL (0.2-0.9); Monocytes % 6.6 %; Neutrophils # 6.29 10^3/uL (1.8-7.7); Neutrophils % 63.9 %; Nucleated Red Blood Cells % 0 %; Platelet Count 226 10^3/cmm (157-399); Red Blood Count 3.36 10^6/uL (3.85-5.65); Red Cell Distribution Width 14.6 % (12.1-15.1); White Blood Count 9.84 10^3/uL (3.29-11.43)
--- NOTE | 2023-07-19 14:30 | CT_ITS ---
WS: [id number] CT RIGHT KNEE, NONCONTRAST TECHNIQUE: Noncontrast CT of the RIGHT knee to include the RIGHT hip and ankle. CLINICAL INFORMATION: knee pain COMPARISON: None. DLP: 966.[address] scans at [facility] use at least one of these dose optimization techniques: automated e xposure control; mA and/or kV adjustment per patient size (includes targeted exams where dose is matc hed to clinical indication); or iterative reconstruction. FINDINGS: Moderate to advanced tricompartment arthritis RIGHT knee with hypertrophic changes along the joint li ne. Hypertrophic patella. Small suprapatellar effusion. Mild degenerative narrowing both hips. Normal pubic rami. Urine distended bladder. A few sigmoid dive rticuli. IMPRESSION: Images obtained for preoperative purposes.
== END 2023-07-19 14:00 | disposition home or self-care (01) ==
PROVIDERS: PCP Family Medicine; Visit Provider Specialist
DX: Z01.818 Encounter for other preprocedural examination (principal); M25.561 Pain in right knee
CPT/HCPCS: 36415; 73700; 85025

== ENCOUNTER 2023-07-23 10:11 | Observation (INO) | payer MEDICARE, OTHER, SELFPAY ==
[2023-07-22 12:12] VITALS: BMI 35.2
[2023-07-23] VITALS (20 sets, daily range): BP systolic 126–173; BP diastolic 50–81; PULSE 62–79; RESP 10–19; TEMP 36.1–36.9; O2SAT 96–100
[2023-07-23] MEDS: acetaminophen 1,000 MG/100 ML PIGGYBACK 400 MG IV ×3 (06:21→22:34)
[2023-07-23] MEDS: sodium chloride 0.9% 1,000 ML 30 ML IV (06:27)
[2023-07-23] MEDS: gabapentin 300 mg Capsule PO (06:29)
--- NOTE | 2023-07-23 06:53 | P.HPUD_ITS ---
Surgery/Procedure H&P Update DATE OF PROCEDURE: July 23, 2023 DATE H&P PERFORMED: 07/17/23 H&P UPDATE INFORMATION: I have reviewed H&P completed within last 30 days, I have examined patient prior to procedure, No changes to prior documentation and H&P is in [facility] EMR on date indicated PLANNED PROCEDURE: Operation Date: 07/23/23 07:00 Proposed Procedures p RIGHT TOTAL KNEE ARHTORPLASTY WITH NANDO 91035,M17.10(Right) - Karen Gustafson MD Related Problem List Diagnoses (1) Primary osteoarthritis of right knee:
[2023-07-23] MEDS: ceFAZolin 2,000 MG in sodium chloride 0.9% (plus) 50 ML 100 MG IV ×3 (06:58→22:37)
[2023-07-23] MEDS: tranexamic acid 1,000 mg/10mL SDV 1000 MG IV (07:25)
--- NOTE | 2023-07-23 07:37 | P.ANESASSM_ITS ---
Pre-Anesthetic Assessment Height/Weight: Height 1.65 m Weight 96.162 kg Temp Pulse Resp BP Pulse Ox O2 Del Method 97.8 F 65 17 161/72 97 Room Air 07/23/23 06:07 07/23/23 06:07 07/23/23 06:07 07/23/23 06:07 07/23/23 06:07 07/23/23 06:07 Operation Date: 07/23/23 07:00 Proposed Procedures p RIGHT TOTAL KNEE ARHTORPLASTY WITH NANDO 32892,M17.10(Right) - Karen Gustafson MD Was Beta Efren taken within 24 hours: Yes Was Clonidine taken within 24 hours: N/A Last intake: Intake Last Liquid Date 07/22/23 Last Liquid Time 22:30 Last Solid Date 07/22/23 Last Solid Time 16:00 Social No tobacco Exam alert, oriented x 3, clear to auscultation bilaterally and regular rate & rhythm Airway Submandibular: within normal limits Cervical ROM: within normal limits Mallampati: Class III Dentition: full History/ROS No significant history except as noted and No significant complaints Pulmonary Chronic Obstructive Pulmonary Disease and Sleep Apnea CV/HEM Coronary Artery Disease and Hypertension AVR 2018 Chronic Renal Insufficiency GI Gastroesophageal Reflux Disease Metabolic Diabetes Mellitus, Hyperlipidemia and Morbid Obesity Neuropsych Cerebrovascular Accident L sided weakness Anesthetic Plan ASA status: 3 Anesthesia: Regional (specify below) Other: Spinal anesthesia, IV sedation, adductor canal block for post-op analgesia Risk of > 500 ml blood loss (7ml/kg in children): No Medications/Allergies Home Medications Medication Instructions Recorded Confirmed Last Taken Type acetaminophen 650 mg 650 mg PO 3XD PRN Pain 10/22/19 07/23/23 07/16/23 History tablet,extended release aspirin 81 mg tablet,delayed 81 mg PO DAILY 10/22/19 07/22/23 07/16/23 History release (Adult Aspirin Regimen) mecobalamin (vitamin B12) 1,000 1,000 mcg PO DAILY 10/22/19 07/23/23 07/21/23 History mcg disintegrating tablet,sublingual multivitamin 1 tab PO QAM 10/22/19 07/23/23 07/20/23 History blood sugar diagnostic (Blood #400 ea 04/27/21 07/22/23 07/15/23 Rx Glucose Test strips) diabetic supplies, miscellan. #1 ea 05/15/21 07/22/23 07/15/23 Rx alfuzosin 10 mg tablet,extended 10 mg PO DAILY #90 tabs 08/22/22 07/22/23 07/22/23 Rx release 24 hr methenamine hippurate 1 gram tablet 1 g PO BID Recurrent UTI #180 tabs 08/22/22 07/22/23 07/22/23 Rx amlodipine 2.5 mg tablet 2.5 mg PO DAILY #90 tabs 10/03/22 07/22/23 07/22/23 Rx metoprolol tartrate 25 mg tablet 25 mg PO BID #180 tabs 11/28/22 07/23/23 07/22/23 20:30 Rx simvastatin 20 mg tablet 20 mg PO DAILY #90 tabs 11/28/22 07/22/23 07/22/23 Rx cranberry fruit concentrate 250 mg 250 mg PO DAILY 02/11/23 07/22/23 07/22/23 History chewable tablet (Azo Cranberry) sertraline 100 mg tablet (Zoloft) 200 mg PO DAILY #180 tabs 02/11/23 07/22/23 07/22/23 Rx triamterene 37.5 1 tab PO QAM #90 tabs 02/21/23 07/22/23 07/22/23 Rx mg-hydrochlorothiazide 25 mg tablet Diabetic Shoes #1 ea 05/08/23 07/22/23 07/15/23 Rx albuterol sulfate 2.5 mg/3 mL 2.5 mg (3 mL) inhalation Q6H #75 mL 07/12/23 07/22/23 07/15/23 Rx (0.083 %) solution for nebulization albuterol sulfate 90 mcg/actuation 2 puff inhalation QID PRN Wheezing 07/12/23 07/22/23 07/15/23 Rx aerosol inhaler (ProAir HFA) #8.5 grams esomeprazole magnesium 40 mg 40 mg PO DAILY #90 caps 07/12/23 07/22/23 07/22/23 Rx capsule,delayed release (Nexium) exenatide microspheres 2 mg/0.85 2 mg (0.85 mL) SUBCUT Q7D #10.2 mL 07/12/23 07/23/23 07/06/23 Rx mL subcutaneous auto-injector ([employer]) fluticasone 250 mcg-salmeterol 50 1 inh inhalation BID #180 ea 07/12/23 07/23/23 07/22/23 Rx mcg/dose blistr powdr for inhalation (Advair Diskus) furosemide 40 mg tablet 40 mg PO Q6H #120 tabs 07/12/23 07/22/23 07/22/23 Rx gabapentin 100 mg capsule 100 mg PO Q6H #360 caps 07/12/23 07/22/23 07/22/23 Rx isosorbide mononitrate 30 mg 30 mg PO QAM #90 tabs 07/12/23 07/22/23 07/22/23 Rx tablet,extended release 24 hr lancets 33 gauge (GriseldaTouch Delbryan #400 ea 07/12/23 07/22/23 07/15/23 Rx Plus Lancet) lorazepam 1 mg tablet 1 mg PO BID PRN anxiety #60 tabs 07/12/23 07/22/23 2 Weeks Ago Rx ~07/01/23 metformin 1,000 mg tablet,extended 1,000 mg PO BID #180 tabs 07/12/23 07/23/23 07/20/23 Rx release 24hr metoprolol tartrate 100 mg tablet 50 mg PO BID #90 tabs 07/12/23 07/23/23 07/22/23 20:30 Rx potassium chloride 20 mEq 20 meq PO DAILY #30 tabs 07/12/23 07/22/23 07/22/23 Rx tablet,extended release montelukast 10 mg tablet 10 mg PO DAILY 07/17/23 07/22/23 07/22/23 History carbidopa ER 25 mg-levodopa 100 mg 1 tab PO BEDTIME 07/22/23 07/22/23 07/22/23 History tablet,extended release cholecalciferol (vitamin D3) 125 5,000 unit PO DAILY 07/22/23 07/23/23 07/21/23 History mcg (5,000 unit) capsule epinephrine 0.3 mg/0.3 mL 0.3 mg IM DAILY PRN Allergic 07/22/23 07/22/23 Unknown History injection, auto-injector (EpiPen Reaction 2-Jacobo) Allergies Allergy/AdvReac Type Severity Reaction Status Date / Time bee venom protein (honey bee) Allergy ALGY-Anaphy Verified 07/23/23 05:52 laxis erythromycin base Allergy ADR-Nausea Verified 07/23/23 05:52 milnacipran [From Savella] Allergy ALGY-Anaphy Verified 07/23/23 05:52 laxis naproxen Allergy ALGY-Anaphy Verified 07/23/23 05:52 laxis Sulfa (Sulfonamide Allergy ALGY-Anaphy Verified 07/23/23 05:52 Antibiotics) laxis Current Medications Generic Name Dose Route Start Last Admin Trade Name Freq PRN Reason Stop Dose Admin Sodium Chloride 1,000 mls @ 30 mls/hr 07/23/23 06:00 07/23/23 06:27 Sodium Chloride 0.9% IV 07/24/23 05:59 30 mls/hr .Q24H CAROL Administration PFSH Anesthesia Medical History Anemia Anxiety Asthma Chronic cystitis COPD (chronic obstructive pulmonary disease) Depression, controlled Diabetic mononeuropathy associated with diabetes mellitus due to underlying condition Fibromyalgia Flaccid bladder Gastro-esophageal reflux disease without esophagitis History of nonmelanoma skin cancer Hypertension Mixed hyperlipidemia Polyuria Post-traumatic stress disorder, chronic Psychiatric care Renal insufficiency, mild Type 2 diabetes mellitus Surgical History Aortic valve replaced H/O breast biopsy H/O: hysterectomy History of cataract surgery BILATERAL History of foot surgery left foot Hx of tonsillectomy Status post extracorporeal shock wave therapy Family History Mother , AT AGE 83 Pneumonia DVT (deep venous thrombosis) Father , AT AGE 85 Cancer LUNG Other Hypertension Social History Smoking and tobacco status: former smoker Quit status (tobacco): has quit using tobacco Year quit tobacco: 1987 Former quit date comment: Hx of 0.5 PPD x 20 Years Second hand smoke exposure: Yes Smoking risk assessment/counseling performed?: No Alcohol intake: current Alcohol intake frequency: holidays/special occasions only Counseling given: No Substance/Drug Use: never Counseling given: No Lives independently: Yes Household members: spouse Marital status: Current occupational status: retired Sexually active: No Do you think of yourself as: Straight/Heterosexual Current gender identity: Female Data Anesthesia Cardiac Studies: No Data to Display
[2023-07-23] MEDS: ceFAZolin 1,000 mg SDV 1000 MG IRRIGATION ×2 (07:47→08:26)
[2023-07-23] MEDS: vancomycin 1,000 MG SDV 1000 MG XX (08:27)
[2023-07-23] MEDS: BUPivacaine 0.5% INJ 30 mL INJECTION (08:29)
--- NOTE | 2023-07-23 10:24 | XRR_ITS ---
PROCEDURE INFORMATION: Exam: XR Right Knee Exam date and time: 07/23/2023 10:34 AM Age: 68 years old Clinical indication: Device placement; Joint replacement hardware; Prior surgery; Surgery date: Post-operative (0-2 days); Surgery type: Status post total knee arthroplasty TECHNIQUE: Imaging protocol: Radiologic exam of the right knee. Views: 1 or 2 views. COMPARISON: CT knee RT NANDO 07/19/2023 2:33 PM FINDINGS: Bones/joints: The patient has had a right total knee arthroplasty with no adverse findings. Soft tissues: Postoperative soft tissue changes are seen including multiple anterior skin jason. XR/XR knee RT 1-2V [id number] IMPRESSION: Normal appearing postoperative right total knee arthroplasty.
--- NOTE | 2023-07-23 10:42 | P.OP_ITS ---
Operative Report Date of procedure: July 23, 2023 Pre-op diagnosis: Primary osteoarthritis right knee Post-op diagnosis: Primary osteoarthritis right knee Post-op findings: Significant degenerative osteoarthritis with osteophytes and slight flexion contracture Procedure done: Right total knee arthroplasty with Maksim guidance Implants: The [place] total knee system with a size 3 triathlon beaded cruciate retaining femur right, a triathlon titanium tibial component size?3 beaded, a triathlon X3 tibial bearing CS insert size 3 X 11 mm and a beaded triathlon titanium asymmetric patella size 32 x 10 mm Specimens removed/disposition: Bone, disposed of Surgeon: Karen Gustafson MD Strap Sewer: [facility] operating room technicians Anesthesia: Spinal (With MAC and adductor block, ASA 3) Estimated blood loss (mL): 100 Tourniquet time (min): 0 (Not utilized) IV fluids (mL): 800 Urine output (mL): 150 Complications: None Findings: Significant degenerative osteoarthritis of the right knee with slight valgus deformity. Condition: stable Disposition: PACU (Then discharged to floor for postoperative rehabilitation and pain management) Brief History: This is an established 68 year old female patient here today for same-day total knee arthroplasty with Maksim guidance. Preoperatively, the patient had significant limitations in her activities of daily living. Patient states that the pain occurs frequently and is aching in nature. Patient states the pain is to the entire knee. Patient states the knee feels unstable and does give out on patient at times. Patient states that the knee pops, cracks, and locks as well. After discussion in the office, the patient wished to proceed with total knee arthroplasty. Risks and complications were discussed with her, and consents were signed. Procedure: The patient was brought to the operating theater, and after undergoing spinal anesthesia with MAC and supplemental adductor block, ASA 3, the right lower extremity was prepped with Dura-Prep and draped in usual fashion following placement of a tourniquet high on the leg. The leg was then draped free.? Tourniquet was not elevated during the case.? A surgical pause was performed, and at the time of the surgical pause, we confirmed the site and side of surgery. Additionally, we confirmed the appropriate and timely administration of preoperative antibiotics, Ancef 2 g and Transexemic acid 1 g.? The availability of equipment was confirmed, and the patient's identity was verbalized as well.? An additional transexemic acid 1 g will be given on the floor as well. Following the surgical pause, an incision was made centering over the patella continuing proximally and distally as necessary to allow access to the knee joint. Dissection continued through skin and soft tissues using a scalpel. Hemostasis was obtained using electrocautery. The skin incision was followed by a median parapatellar arthrotomy. The leg was extended and the patella was able to be displaced laterally without difficulty.? Medial release was initially accomplished to allow placement for the Maksim array.? Appropriate arrays and markers were placed in appropriate position for use of the Maksim.? Preoperative planning had been accomplished and was discussed in detail with the [facility] hospital insurance representative.? Intraoperative mapping of the femur and tibia was accomplished after the arrays were placed.? Internal markers were also placed.? Once we had accomplished the Maksim mapping, we began the appropriate resections for placement of the prosthesis.? The plan was for a cruciate retaining right total knee arthroplasty.? Medial releases were accomplished prior to the surgical procedure to allow balancing of the knee. Once appropriate mapping had been accomplished retraction was established using manual retraction by surgical technicians and also the Maksim leg positioner and retractors.? The knee was evaluated.? There was significant osteoarthritic change.? The tibia was cut first with the Maksim.? Subsequently, appropriate bone resection of the femur was accomplished using the Maksim.? The femur was sized to a size 3.? Osteophytes were removed prior to this portion of the procedure.? We had performed a medial release at the beginning of the procedure to allow for placement of the array and to allow for better planning with flexion and extension adjustments per Maksim programming.? Following this resection, it was felt that appropriate size for the tibia was a size 3.? Tray was noted to fit nicely with good coverage.? Rim fit was accomplished with the size 3. A trial reduction was accomplished after osteophytes have been removed as well as the medial and lateral menisci.? We had removed the anterior cruciate ligament at the beginning of the case and preserved the posterior cruciate ligament.? Trial reduction was accomplished with a size 3 femoral posterior cruciate retaining component and a size 3 tibial tray with a size 3 x CS tibial bearing insert.? Alignment was felt to be appropriate.? Subsequently, we trialed with a 10 secondary to slight hyperextension. This fit nicely, and the decision was made to implant a size 11. Trial components were removed after the femur had been drilled.? Prior to removal of the tibial tray which had been pinned in position with appropriate rotation as determined by the Maksim plan, we broached the tibia.? Subsequently, the 4 drill holes were made for the prosthetic component.? All trial components were removed, and the wound was irrigated.? Plans were made for insertion of the prosthetic components.? Prior to this, the patella was manually prepared.? After resection of the articular surface with the patellar sweeney, it was measured and measured a 32 mm patella.? We resected approximately 10 mm of patella.? Patellar height was restored with the patellar component. Once again, the wound was irrigated.? The Tritanium tibia was impacted into position.? The beaded femur was then impacted into position in a cementless fashion. The CS tibial insert was placed prior to placement of the femoral component. The patella was pressed into position with a patellar clamp.? Exparel was injected about the components deep and superficially.? The knee was then copiously irrigated with betadine and saline and suctioned dry.? Further irrigation was accomplished with saline following the Betadine.? Attention was then directed to closure. Closure was accomplished with 0 Vicryl and strata fix starting proximally and overlap with a strata fix starting distally in the fascial tissues.? This was followed by Surgiflo and vancomycin powder.? Following this, a 2-0 Monocryl was used in the subcutaneous tissues, and the skin was closed with skin jason.? Care was taken to assure an excellent subcutaneous as well as skin closure.? A sterile dressing was then placed consisting of Dermabond Prineo, OpSite, sterile soft roll including over the foot, and an Markus wrap. The patient was returned the Recovery Room in a satisfactory condition. X-rays were obtained and reviewed there.? The patient will be discharged to the floor for postoperative rehabilitation and pain management. Related Problem List Diagnoses (1) Primary osteoarthritis of right knee: (2) Valgus deformity, not elsewhere classified, right knee:
[2023-07-23] MEDS: oxyCODONE 5 mg IR Tab/Cap PO ×3 (12:01→22:47)
[2023-07-23] MEDS: gabapentin 100 mg Capsule PO ×3 (12:01→22:38)
[2023-07-23] MEDS: FUROsemide 40 mg Tablet PO ×3 (12:01→22:38)
--- NOTE | 2023-07-23 13:59 | ANE.PACU2 ---
Inpatient post-anesthesia follow up: Airway intact: Yes Vital signs: Temperature 97.5 F Pulse Rate 65 Respiratory Rate 16 Blood Pressure 169/80 Pulse Oximetry 96 Oxygen Delivery Me thod Room Air Oxygen Flow Rate Fraction of Inspir ed Oxygen Hydration adequate: Yes Nausea and vomiting: No Pain level: 1 Mental status: Baseline
[2023-07-23] MEDS: chlorhexidine gluconate 0.12% Btl 473 mL 30 ML MUCOUS MEM ×3 (15:05→21:55)
[2023-07-23] MEDS: albuterol 2.5 mg/3 mL Neb INHALATION ×2 (17:18→20:06)
[2023-07-23] MEDS: mupirocin oint 22 gm 1 APPLIC NASAL (18:21)
[2023-07-23] MEDS: sennosides-docusate Tablet 2 TAB PO (18:23)
[2023-07-23] MEDS: metformin XR 500 MG Tablet 1000 MG PO (18:23)
[2023-07-23] MEDS: calcium carbonate 500 mg Chew Tablet 1000 MG PO (18:23)
[2023-07-23] MEDS: iron polysaccharide complex 150 mg Capsule PO (18:23)
[2023-07-23] MEDS: metoprolol tartrate 25 mg Tablet PO (18:24)
[2023-07-23] MEDS: budesonide 0.5 mg/2 mL Neb INHALATION (20:06)
[2023-07-23] MEDS: ondansetron 2 mg/ML SDV 2 mL 4 MG IVP (20:39)
[2023-07-23] MEDS: carbidopa-levodopa 25-100mg Tablet 1 EACH PO (21:54)
[2023-07-24] VITALS (12 sets, daily range): BP systolic 133–159; BP diastolic 67–77; PULSE 76–88; RESP 16–18; TEMP 36.3–37.3; O2SAT 95–97
[2023-07-24] MEDS: albuterol 2.5 mg/3 mL Neb INHALATION ×2 (03:04→08:12)
[2023-07-24] MEDS: ondansetron 2 mg/ML SDV 2 mL 4 MG IVP (05:35)
[2023-07-24] MEDS: oxyCODONE 5 mg IR Tab/Cap PO ×3 (06:04→13:39)
[2023-07-24] MEDS: gabapentin 100 mg Capsule PO ×2 (06:04→12:15)
[2023-07-24] MEDS: FUROsemide 40 mg Tablet PO ×2 (06:04→12:15)
[2023-07-24] MEDS: isosorbide mononitrate ER 30 mg Tablet PO (06:04)
[2023-07-24] MEDS: ceFAZolin 2,000 MG in sodium chloride 0.9% (plus) 50 ML 100 MG IV (06:05)
[2023-07-24] MEDS: acetaminophen 1,000 MG/100 ML PIGGYBACK 400 MG IV (06:05)
[2023-07-24 06:26] LABS: Basophils % 0.2 %; Hematocrit 28.8 % (36-47); Lymphocytes # 1.3 10^3/uL (0.8-4.8); Mean Corpuscular HGB Conc 33.3 g/dL (30-55); Mean Corpuscular Hemoglobin 30.6 pg (27-33); Mean Corpuscular Volume 91.7 fl (85-98); Mean Platelet Volume 10.7 fL (7.4-10.4); Monocytes # 1.4 10^3/uL (0.2-0.9); Monocytes % 10.8 %; Neutrophils # 9.95 10^3/uL (1.8-7.7); Neutrophils % 78.2 %; Nucleated Red Blood Cells % 0 %; Platelet Count 250 10^3/cmm (157-399); Red Blood Count 3.14 10^6/uL (3.85-5.65); Red Cell Distribution Width 15.3 % (12.1-15.1); White Blood Count 12.74 10^3/uL (3.29-11.43)
[2023-07-24 06:32] LABS: Glucose Point of Care 135 mg/dL (70-110)
[2023-07-24 06:43] LABS: Anion Gap 21.1 (5-19); Blood Urea Nitrogen 23 mg/dL (8-23); Calcium 9.4 mg/dL (8.5-10.5); Carbon Dioxide 25 mmol/L (22-29); Chloride 99 mmol/L (98-107); Glomerular Filtration Rate 29.7 mL/min (90-130); Glucose 174 mg/dL (65-115); Osmolality Calculated 302 mOsm/kg (285-295); Potassium 3.1 mmol/L (3.5-5.1); Sodium 142 mmol/L (136-145)
[2023-07-24] MEDS: budesonide 0.5 mg/2 mL Neb INHALATION (08:12)
[2023-07-24] MEDS: metformin XR 500 MG Tablet 1000 MG PO (08:30)
[2023-07-24] MEDS: atorvastatin 40 mg Tablet 20 MG PO (08:31)
[2023-07-24] MEDS: chlorhexidine gluconate 0.12% Btl 473 mL 30 ML MUCOUS MEM ×2 (08:31→13:39)
[2023-07-24] MEDS: calcium carbonate 500 mg Chew Tablet 1000 MG PO (08:31)
[2023-07-24] MEDS: mupirocin oint 22 gm 1 APPLIC NASAL (08:31)
[2023-07-24] MEDS: iron polysaccharide complex 150 mg Capsule PO (08:31)
[2023-07-24] MEDS: amlodipine 5 mg Tablet 2.5 MG PO (08:32)
[2023-07-24] MEDS: multivitamin therapeutic Tablet 1 TAB PO (08:32)
[2023-07-24] MEDS: aspirin 325 mg EC Tablet PO (08:33)
[2023-07-24] MEDS: sertraline 100 mg Tablet 200 MG PO (08:33)
[2023-07-24] MEDS: pantoprazole DR 40 mg Tablet PO (08:33)
[2023-07-24] MEDS: metoprolol tartrate 25 mg Tablet PO (08:33)
[2023-07-24] MEDS: cholecalciferol (vitamin D3) 1,000 unit Tablet 1000 UNIT PO (08:33)
[2023-07-24] MEDS: montelukast sodium 10 mg Tablet PO (08:33)
[2023-07-24] MEDS: sennosides-docusate Tablet 2 TAB PO (08:33)
[2023-07-24] MEDS: alfuzosin 10 mg ER Tablet PO (08:41)
--- NOTE | 2023-07-24 11:20 | PC.CHAP ---
Pastoral Care Encounter/Spiritual Assessment Type of Contact [] Declined site medical director visit [] Patient/Family/Request visit [] Outpatient visit [] Follow-up visit [] Physician referral [] Code/Alert [x] Routine visit [] Staff referral [] Actively dying [] Patient sleeping [] Family support [] [] Out of room [] Palliative care [] [] Receiving care in room [] Pre-surgical visit [] Trauma [] Long length of stay [] ICU visit [] Other: Relational/Emotional Strength [x] Patient feels connected with others/family/visitors/staff [] Distress [] Loneliness/isolation [] Abandonment Spirituality of Patient [] Person of Danielle [] Attends Zoroastrianism of their Danielle [] Believes in Prayer [] Reads Bible or Religion materials [x] There are Spiritual issues to be addressed Delivery Analyst Interventions [x] Prayer [] Active listening [] Non-anxious presence [] Spiritual/emotional support [] Crisis/trauma care [] Spiritual counseling [] Bereavement support [] Provided bereavement packet [] Provided Bible/devotional materials [] Provided toy/stuffed animal, coloring book to patient or family member [] Provided Communion [] Anointing/Thompson [] Salvation [] Completed spiritual assessment [] Other: Impact on Illness or Injury [] Angry [] Fearful [] Anxious [] Often cries [] Exhaustion [] Unable to work [] Unable to attend alevism [] Unable to walk/stand [] Unable to read [] Unable to drive [] Unable to eat/drink [] Unable to sleep [] Unable to be with family [] Patient intubated [] Other: Summary Time spent with patient 10 min
[2023-07-24] MEDS: acetaminophen 500 mg Tablet 1000 MG PO (13:40)
--- NOTE | 2023-07-24 13:40 | PM.DCS ---
Discharge Providers Date of Admission: 07/23/23 10:11 Date of Discharge: July 24, 2023 Attending Provider at Admission: Karen Gustafson MD Attending Provider at Discharge: Karen Gustafson MD Primary Care Provider: Rico Maxwell DO Diagnoses at Discharge Discharge Diagnosis (1) Status post total right knee replacement not using cement: Status: Acute Permanent problem details: Date of procedure: July 23, 2023 Diagnosis: Primary osteoarthritis right knee Procedure done: Right total knee arthroplasty with Maksim guidance Implants: The [place] total knee system with a size 3 triathlon beaded cruciate retaining femur right, a triathlon titanium tibial component size 3 beaded, a triathlon X3 tibial bearing CS insert size 3 X 11 mm and a beaded triathlon titanium asymmetric patella size 32 x 10 mm (2) Primary osteoarthritis of right knee: Status: Acute (3) Valgus deformity, not elsewhere classified, right knee: Status: Acute Reason for Visit Reason for Visit: 06569 M17.10 Brief History: This is an established 68 year old female patient here today for same-day total knee arthroplasty with Maksim guidance.? Preoperatively, the patient had significant limitations in her activities of daily living. Patient states that the pain occurs frequently and is aching in nature. Patient states the pain is to the entire knee. Patient states the knee feels unstable and does give out on patient at times. Patient states that the knee pops, cracks, and locks as well.? After discussion in the office, the patient wished to proceed with total knee arthroplasty.? Risks and complications were discussed with her, and consents were signed. Physical Exam Const: COMMON NORMALS: no acute distress, average body habitus, patient oriented x3 and alert GENERAL APPEARANCE: cooperative and comfortable ORIENTATION/CONSCIOUSNESS: Yes awake HENMT: COMMON NORMALS: normocephalic and atraumatic HEAD & SCALP: normocephalic and atraumatic Eye: GENERAL EYE: appearance normal, both eyes and all related structures Chest: COMMONS NORMALS: normal inspection of the chest Resp: COMMON NORMALS: normal respiratory effort EFFORT & INSPECTION: Yes able to speak in complete sentences and Yes symmetric chest movement Extremity: RIGHT LOWER EXTREMITY: Yes knee joint (No evidence of DVT) Right knee: Yes inspection (No ecchymosis, minimal swelling), Yes palpation (Minimal tenderness), Yes ROM (Not evaluated), Yes neurovascular exam (Intact distally) and Yes other (Able to straight leg raise) Neuro: COMMON NORMALS: patient oriented x3 SENSORIUM/ORIENTATION: Yes alert Psych: COMMON NORMALS: mental status grossly normal APPEARANCE: Yes grossly normal ATTITUDE: Yes calm and Yes engaged ATTENTION/CONCENTRATION: Yes attention grossly intact Skin: COMMON NORMALS: no rashes or lesions noted GENERAL SKIN EXAM: no rashes or lesions noted Urinary Catheter Management: San: Cath Placed During This Visit: yes, but has since been removed by the nurse Reason for Continuing Indwelling Catheter: Decision to DC Catheter Urinary Catheter Date of Insertion: 07/23/23 Urinary Catheter Time of Insertion: 07:15 Date Urinary Catheter Removed: 07/24/23 Time Urinary Catheter Discontinued: 06:15 Discharge Data Studies Completed and Pending Completed Studies During Hospitalization Category Date Time Status XR knee RT 1-2V [id number] Routine Exams 07/23/23 10:24 Completed Radiology Impressions Knee X-Ray 07/23/23 10:24 IMPRESSION: Normal appearing postoperative right total knee arthroplasty. Laboratory Results WBC 12.74 10^3/uL (3.29-11.43) H 07/24/23 05:50 RBC 3.14 10^6/uL (3.85-5.65) L 07/24/23 05:50 Hgb 9.60 g/dL (11.27-16.99) L 07/24/23 05:50 Hct 28.8 % (36-47) L 07/24/23 05:50 MCV 91.7 fl (85-98) 07/24/23 05:50 MCH 30.6 pg (27-33) 07/24/23 05:50 MCHC 33.3 g/dL (30-55) 07/24/23 05:50 RDW 15.3 % (12.1-15.1) H 07/24/23 05:50 Plt Count 250 10^3/cmm (157-399) 07/24/23 05:50 MPV 10.7 fL (7.4-10.4) H 07/24/23 05:50 Neut % (Auto) 78.2 % 07/24/23 05:50 Lymph % (Auto) 10.0 % 07/24/23 05:50 Vance % (Auto) 10.8 % 07/24/23 05:50 Eos % (Auto) 0.0 % 07/24/23 05:50 Baso % (Auto) 0.2 % 07/24/23 05:50 Neut # (Auto) 9.95 10^3/uL (1.8-7.7) H 07/24/23 05:50 Lymph # (Auto) 1.3 10^3/uL (0.8-4.8) 07/24/23 05:50 Vance # (Auto) 1.4 10^3/uL (0.2-0.9) H 07/24/23 05:50 Eos # (Auto) 0.0 10^3/uL (0.0-0.8) 07/24/23 05:50 Baso # (Auto) 0.0 10^3/uL (0.0-0.1) 07/24/23 05:50 Nucleated RBC % (auto) 0 % 07/24/23 05:50 Nucleated RBCs # 0.0 /100WBC 07/24/23 05:50 Sodium 142 mmol/L (136-145) 07/24/23 05:50 Potassium 3.1 mmol/L (3.5-5.1) L 07/24/23 05:50 Chloride 99 mmol/L (98-107) 07/24/23 05:50 Carbon Dioxide 25 mmol/L (22-29) 07/24/23 05:50 Anion Gap 21.1 (5-19) H 07/24/23 05:50 BUN 23 mg/dL (8-23) 07/24/23 05:50 Creatinine 1.7 mg/dL (0.5-0.9) H 07/24/23 05:50 GFR Calculation 29.7 mL/min (90-130) L 07/24/23 05:50 Glucose 174 mg/dL (65-115) H 07/24/23 05:50 POC Glucose 135 mg/dL (70-110) H 07/23/23 06:19 Calculated Osmolality 302 mOsm/kg (285-295) H 07/24/23 05:50 Calcium 9.4 mg/dL (8.5-10.5) 07/24/23 05:50 Vitals Last Vital Signs Temp 97.4 F L 07/24/23 10:53 Pulse 76 07/24/23 10:53 Resp 18 07/24/23 13:39 BP 133/67 07/24/23 10:53 Pulse Ox 97 07/24/23 10:53 O2 Del Method Room Air 07/24/23 10:53 Discharge Plan Discharge Patient Disposition: Home Health Service Condition: Stable Prescriptions: New aspirin 325 mg Tablet,Delayed Release (Dr/Ec) 325 mg PO DAILY 30 Days Qty: 0 0RF oxycodone 5 mg Tablet 5 mg PO Q4H PRN (Reason: Moderate Pain) 7 Days Qty: 30 0RF Continued multivitamin Tablet 1 tab PO QAM acetaminophen 650 mg tablet extended release 650 mg PO 3XD PRN (Reason: Pain) mecobalamin (vitamin B12) 1,000 mcg tablet,disintegrating 1,000 mcg PO DAILY (DME) Blood Glucose Test Strip See Rx Instructions .ROUTE .MEDSUPPLY Qty: 400 3RF Rx Instructions: As directed to test blood sugar 3-4 times a day methenamine hippurate 1 gram tablet 1 g PO BID Qty: 180 3RF Rx Instructions: 1 pill twice a day with 1 g vitamin C each dose Begin after antibiotic completion alfuzosin 10 mg tablet extended release 24 hr 10 mg PO DAILY Qty: 90 3RF Rx Instructions: administer after the same meal each day amlodipine 2.5 mg tablet 2.5 mg PO DAILY Qty: 90 3RF Rx Instructions: She is only taking daily (DME) Diabetic Shoes Qty: 1 0RF Rx Instructions: As directed simvastatin 20 mg tablet 20 mg PO DAILY Qty: 90 3RF metoprolol tartrate 25 mg tablet 25 mg PO BID Qty: 180 3RF Azo Cranberry 250 mg tablet,chewable 250 mg PO DAILY sertraline [Zoloft] 100 mg tablet 200 mg PO DAILY Qty: 180 3RF montelukast 10 mg tablet 10 mg PO DAILY albuterol sulfate [ProAir HFA] 90 mcg/actuation HFA aerosol inhaler 2 puff INHALATION QID PRN (Reason: Wheezing) Qty: 8.5 11RF albuterol sulfate 2.5 mg /3 mL (0.083 %) solution for nebulization 2.5 mg INHALATION Q6H Qty: 75 0RF esomeprazole magnesium [Nexium] 40 mg capsule,delayed release(DR/EC) 40 mg PO DAILY Qty: 90 3RF Bydureon BCise 2 mg/0.85 mL auto-injector 2 mg SUBCUT Q7D Qty: 10.2 3RF fluticasone propion-salmeterol [Advair Diskus] 250-50 mcg/dose blister with device 1 inh INHALATION BID Qty: 180 3RF gabapentin 100 mg capsule 100 mg PO Q6H Qty: 360 3RF Rx Instructions: one capsule four times daily isosorbide mononitrate 30 mg tablet extended release 24 hr 30 mg PO QAM Qty: 90 3RF (DME) lancets [OneTouch Delica Plus Lancet] 33 [place] [facility] [place] Rx Instructions .ROUTE .COMPLEX Qty: 400 4RF Dose Instruction: USE 3 TO 4 TIMES DAILY( TO TEST BLOOD SUGAR) DIRECTED Rx Instructions: USE 3 TO 4 TIMES DAILY( TO TEST BLOOD SUGAR) DIRECTED metformin 1,000 mg tablet extended release 24 hr 1,000 mg PO BID Qty: 180 3RF metoprolol tartrate 100 mg tablet 50 mg PO BID Qty: 90 3RF Rx Instructions: 1/2 tablet two times daily lorazepam 1 mg tablet 1 mg PO BID PRN (Reason: anxiety) Qty: 60 0RF potassium chloride 20 mEq tablet extended release 20 meq PO DAILY Qty: 30 0RF furosemide 40 mg tablet 40 mg PO Q6H Qty: 120 0RF Rx Instructions: one tablet four times a day (DME) diabetic supplies, miscellan. [facility] [place] See Rx Instructions .Route Qty: 1 0RF Rx Instructions: Shoes and inserts. triamterene-hydrochlorothiazid 37.5-25 mg tablet 1 tab PO QAM Qty: 90 3RF carbidopa-levodopa 25-100 mg tablet extended release 1 tab PO BEDTIME EpiPen 2-Jacobo 0.3 mg/0.3 mL auto-injector 0.3 mg IM DAILY PRN (Reason: Allergic Reaction) Rx Instructions: as needed cholecalciferol (vitamin D3) 125 mcg (5,000 unit) capsule 5,000 unit PO DAILY Held aspirin [Adult Aspirin Regimen] 81 mg tablet,delayed release (DR/EC) 81 mg PO DAILY Hold Instructions: Resume on 08/23/23. You may resume after completing 30 days of 325 strength Discharge Orders: Discharge Order (Routine); Ordered 07/24/23 Ordered By: Karen Gustafson Referrals: [facility] [Other] Karen Gustafson MD [Physician] - 08/07/23 9:30 am Discharge Diet: Advance as tolerated and Usual diet Discharge Activity: Increase activity as tolerated, Limit activity as instructed, Use walker/crutches as instructed and As per PT/OT instructions Patient Instructions: Aspirin (By mouth), Oxycodone, Rapid Release (By mouth) (ETH-Oxydose, Oxy IR,..., Total Knee Replacement (DC), Joint Replacement Stoplight, Opioid Safety Activity Restrictions/Additional Instructions: Ice and elevation to right knee. Gait training, strengthening, and ambulation per physical therapy instructions. Keep your plastic dressing in place until it comes off on its own or you are seen in the clinic. You may shower with the dressing in place. Discharge Attestations Time Spent in Discharge Care*: greater than 30 min Specific Discharge Activities: educating patient, documenting/other paperwork and evaluating patient/reviewing data Quality Metrics Clinical Quality Measures [ No reported AMI, CVA or VTE this stay] Coding Level of Care Code Acute Code for Chg Fwd Diagnoses Status post total right knee replacement not using cement Z96.651 Primary osteoarthritis of right knee M17.11 Valgus deformity, not elsewhere classified, right knee M21.061
--- NOTE | 2023-07-24 15:05 | PC.NURSE ---
Discharge instructions provided to pt. and . NO questions or concerns voiced at this time.
== END 2023-07-24 15:17 | disposition home health service (06) ==
LOC: MEDSURG 10:20
PROVIDERS: Admitting Provider Specialist; PCP Family Medicine; Visit Provider Specialist
PROC: 8E0Y0CZ Robotic Assisted Procedure of Lower Extremity, Open Approach (ICD-10-PCS; CPT 27447; principal; 2023-07-23 07:00)
DX: M17.11 Unilateral primary osteoarthritis, right knee (principal); M21.061 Valgus deformity, not elsewhere classified, right knee; K21.9 Gastro-esophageal reflux disease without esophagitis; E11.42 Type 2 diabetes mellitus with diabetic polyneuropathy; E78.2 Mixed hyperlipidemia; E66.01 Morbid (severe) obesity due to excess calories; Z68.35 Body mass index [BMI] 35.0-35.9, adult; I69.954 Hemiplegia and hemiparesis following unspecified cerebrovascular disease affecting left non-dominant side; Z79.82 Long term (current) use of aspirin; Z79.84 Long term (current) use of oral hypoglycemic drugs; J44.9 Chronic obstructive pulmonary disease, unspecified; Z87.891 Personal history of nicotine dependence
CPT/HCPCS: 27447; 36415; 36416; 51702; 73560; 80048; 82962; 85025; 94640; 97110; 97116; 97162; 97165; 97530; C1776; G0378; J0131; J0690; J2405; J2704; J2795; J3370; J3490; J7030; J7613; J7626

== ENCOUNTER 2023-08-07 10:59 | Oncology outpatient (recurring) (ONCR) | payer MEDICARE, OTHER, SELFPAY ==
[2023-08-07 13:30] VITALS: BP 151/62; PULSE 60; RESP 17; TEMP 36.1; O2SAT 97
[2023-08-07 13:31] VITALS: BMI 34.2
[2023-08-07 13:35] LABS: Basophils % 0.3 %; Lymphocytes % 20.9 %; Mean Corpuscular HGB Conc 31.7 g/dL (30-55); Mean Corpuscular Hemoglobin 30.4 pg (27-33); Mean Corpuscular Volume 95.7 fl (85-98); Mean Platelet Volume 9.8 fL (7.4-10.4); Monocytes # 0.6 10^3/uL (0.2-0.9); Monocytes % 6.3 %; Neutrophils # 6.85 10^3/uL (1.8-7.7); Neutrophils % 71.4 %; Nucleated Red Blood Cells % 0 %; Platelet Count 385 10^3/cmm (157-399); Red Blood Count 3.03 10^6/uL (3.85-5.65); Red Cell Distribution Width 15.7 % (12.1-15.1); White Blood Count 9.59 10^3/uL (3.29-11.43)
[2023-08-07 13:49] LABS: Erythrocyte Sedimentation Rate 34 mm/hr (0-15)
[2023-08-07 13:58] LABS: Alanine Aminotransferase 7 U/L (0-33); Albumin Level 4.5 g/dL (3.5-5.2); Alkaline Phosphatase 94 U/L (35-105); Anion Gap 21.1 (5-19); Aspartate Amino Transferase 9 U/L (0-32); Blood Urea Nitrogen 25 mg/dL (8-23); Calcium 9.7 mg/dL (8.5-10.5); Carbon Dioxide 24 mmol/L (22-29); Chloride 103 mmol/L (98-107); Ferritin 589 ng/mL (15-150); Globulin 3.1 g/dL (1.3-4.6); Glomerular Filtration Rate 29.7 mL/min (90-130); Glucose 118 mg/dL (65-115); Iron 73 ug/dL (37-145); Osmolality Calculated 303 mOsm/kg (285-295); Percent Saturation 24.8 % (20-50); Potassium 4.1 mmol/L (3.5-5.1); Sodium 144 mmol/L (136-145); Total Bilirubin 0.2 mg/dL (0.15-1.2); Total Iron Binding Capacity 294 mcg/dl; Total Protein 7.6 g/dL (6.6-8.7); Unsaturated Iron Binding 221 ug/dL (112-347)
[2023-08-08 11:19] LABS: PROTEIN, TOTAL 7.4 g/dL (6.1-8.1)
[2023-08-08 11:46] LABS: KAPPA LIGHT CHAIN, FREE, SERUM 69.2 mg/L (3.3-19.4); KAPPA/LAMBDA LIGHT CHAINS FREE 1.31 (0.26-1.65); LAMBDA LIGHT CHAIN, FREE, SERU 52.8 mg/L (5.7-26.3)
[2023-08-08 15:44] LABS: ALBUMIN 4.4 g/dL (3.8-4.8); ALPHA 1 GLOBULIN 0.4 g/dL (0.2-0.3); ALPHA 2 GLOBULIN 0.8 g/dL (0.5-0.9); BETA 1 GLOBULIN 0.5 g/dL (0.4-0.6); BETA 2 GLOBULIN 0.4 g/dL (0.2-0.5)
== END 2023-08-27 23:59 | disposition home or self-care (01) ==
PROVIDERS: Nurse Practitioner Family; PCP Family Medicine; Visit Provider Internal Medicine Medical Oncology
DX: D64.9 Anemia, unspecified
CPT/HCPCS: 36415; 73560; 73565; 80053; 82728; 83540; 83550; 83883; 84155; 84165; 85025; 85651; 99024; 99213; 99214

== ENCOUNTER → 2023-09-04 09:05 | Outpatient (BNVA) | payer MEDICARE, OTHER, SELFPAY | PROVIDERS: PCP Family Medicine; Visit Provider Nurse Practitioner | DX: Z96.651 Presence of right artificial knee joint (principal); M17.11 Unilateral primary osteoarthritis, right knee | CPT/HCPCS: 73560; 73565; 99024 ==

== ENCOUNTER 2023-09-17 06:00 | Outpatient (RCR) | payer MEDICARE, OTHER, SELFPAY | END 2023-09-26 23:59 | disposition home or self-care (01) | LOC: GPT 06:00 | PROVIDERS: Visit Provider Family Medicine | DX: Z47.1 Aftercare following joint replacement surgery (principal); Z96.651 Presence of right artificial knee joint | CPT/HCPCS: 97110; 97140; 97161 ==

== ENCOUNTER 2023-09-25 10:42 | Oncology outpatient (recurring) (ONCR) | payer MEDICARE, OTHER, SELFPAY ==
[2023-09-25 11:13] VITALS: BP 147/60; PULSE 60; O2SAT 96
[2023-09-25 11:26] LABS: Basophils # 0.1 10^3/uL (0.0-0.1); Basophils % 0.6 %; Lymphocytes # 2.3 10^3/uL (0.8-4.8); Lymphocytes % 26.5 %; Mean Corpuscular HGB Conc 32.8 g/dL (30-55); Mean Corpuscular Hemoglobin 30.4 pg (27-33); Mean Corpuscular Volume 92.8 fl (85-98); Mean Platelet Volume 10.5 fL (7.4-10.4); Monocytes # 0.7 10^3/uL (0.2-0.9); Monocytes % 8.5 %; Neutrophils % 63.2 %; Nucleated Red Blood Cells % 0 %; Platelet Count 298 10^3/cmm (157-399); Red Blood Count 3.45 10^6/uL (3.85-5.65); Red Cell Distribution Width 14.7 % (12.1-15.1); Reticulocyte % 3.4 % (0.5-2.0); White Blood Count 8.69 10^3/uL (3.29-11.43)
[2023-09-25 11:42] LABS: Alanine Aminotransferase 10 U/L (0-33); Albumin Level 4.8 g/dL (3.5-5.2); Alkaline Phosphatase 92 U/L (35-105); Anion Gap 20.7 (5-19); Aspartate Amino Transferase 17 U/L (0-32); Blood Urea Nitrogen 25 mg/dL (8-23); Calcium 9.9 mg/dL (8.5-10.5); Carbon Dioxide 25 mmol/L (22-29); Chloride 99 mmol/L (98-107); Ferritin 252 ng/mL (15-150); Globulin 3.1 g/dL (1.3-4.6); Glomerular Filtration Rate 27.8 mL/min (90-130); Glucose 92 mg/dL (65-115); Iron 74 ug/dL (37-145); Lactate Dehydrogenase 176 U/L (135-214); Osmolality Calculated 296 mOsm/kg (285-295); Percent Saturation 22.3 % (20-50); Potassium 3.7 mmol/L (3.5-5.1); Sodium 141 mmol/L (136-145); Total Bilirubin 0.2 mg/dL (0.15-1.2); Total Iron Binding Capacity 331 mcg/dl; Total Protein 7.9 g/dL (6.6-8.7); Unsaturated Iron Binding 257 ug/dL (112-347)
[2023-09-25 11:57] LABS: Vitamin B12 736 pg/mL (232-1245)
[2023-10-03 14:29] LABS: Erythropoietin 28.7 mIU/mL (2.6-18.5)
== END 2023-09-26 23:59 | disposition home or self-care (01) ==
PROVIDERS: Visit Provider Internal Medicine Medical Oncology
DX: D64.9 Anemia, unspecified (principal); E61.1 Iron deficiency; D50.9 Iron deficiency anemia, unspecified; Z98.890 Other specified postprocedural states; N18.9 Chronic kidney disease, unspecified; Z79.899 Other long term (current) drug therapy
CPT/HCPCS: 36415; 80053; 82607; 82668; 82728; 83010; 83540; 83550; 83615; 85025; 85045; 86334; 99214

== ENCOUNTER 2023-09-27 06:00 | Outpatient (RCR) | payer MEDICARE, OTHER, SELFPAY | END 2023-10-27 23:59 | disposition home or self-care (01) | LOC: GPT 06:00 | PROVIDERS: Visit Provider Family Medicine | DX: Z47.1 Aftercare following joint replacement surgery (principal); Z96.651 Presence of right artificial knee joint | CPT/HCPCS: 97110; 97112; 97140; 97530 ==

== ENCOUNTER 2023-10-28 06:00 | Outpatient (RCR) | payer MEDICARE, OTHER, SELFPAY | END 2023-11-27 23:59 | disposition home or self-care (01) | LOC: GPT 06:00 | PROVIDERS: PCP Family Medicine; Visit Provider Family Medicine | DX: Z47.1 Aftercare following joint replacement surgery (principal); Z96.651 Presence of right artificial knee joint | CPT/HCPCS: 97110; 97112; 97140; 97164; 97530 ==

== ENCOUNTER → 2023-10-30 08:36 | Outpatient (BNVA) | payer MEDICARE, OTHER, SELFPAY | PROVIDERS: PCP Family Medicine; Visit Provider Family Medicine | DX: E11.42 Type 2 diabetes mellitus with diabetic polyneuropathy (principal); Z96.651 Presence of right artificial knee joint | CPT/HCPCS: 83036 ==

== ENCOUNTER 2023-11-28 06:00 | Outpatient (RCR) | payer MEDICARE, OTHER, SELFPAY | END 2023-12-26 23:59 | disposition home or self-care (01) | LOC: GPT 06:00 | PROVIDERS: PCP Family Medicine; Visit Provider Family Medicine | DX: Z47.1 Aftercare following joint replacement surgery (principal); Z96.651 Presence of right artificial knee joint | CPT/HCPCS: 97110 ==

== ENCOUNTER 2023-12-23 13:00 | Oncology outpatient (recurring) (ONCR) | payer MEDICARE, OTHER, SELFPAY ==
[2023-12-23 13:37] LABS: Basophils % 0.3 %; Hematocrit 31.4 % (36-47); Lymphocytes # 2.5 10^3/uL (0.8-4.8); Lymphocytes % 22.7 %; Mean Corpuscular HGB Conc 33.1 g/dL (30-55); Mean Corpuscular Hemoglobin 28.9 pg (27-33); Mean Corpuscular Volume 87.2 fl (85-98); Mean Platelet Volume 10.5 fL (7.4-10.4); Monocytes # 0.7 10^3/uL (0.2-0.9); Monocytes % 6.8 %; Neutrophils # 7.61 10^3/uL (1.8-7.7); Neutrophils % 69.6 %; Nucleated Red Blood Cells % 0 %; Platelet Count 340 10^3/cmm (157-399); Red Cell Distribution Width 15.3 % (12.1-15.1); White Blood Count 10.93 10^3/uL (3.29-11.43)
[2023-12-23 13:54] LABS: Alanine Aminotransferase 10 U/L (0-33); Albumin Level 4.4 g/dL (3.5-5.2); Alkaline Phosphatase 79 U/L (35-105); Anion Gap 21.5 (5-19); Aspartate Amino Transferase 12 U/L (0-32); Blood Urea Nitrogen 28 mg/dL (8-23); Calcium 9.7 mg/dL (8.5-10.5); Carbon Dioxide 24 mmol/L (22-29); Chloride 97 mmol/L (98-107); Creatinine Clr Calc Pharmacy 34.6395; Ferritin 77 ng/mL (15-150); Globulin 3.3 g/dL (1.3-4.6); Glomerular Filtration Rate 29.7 mL/min (90-130); Glucose 112 mg/dL (65-115); Iron 57 ug/dL (37-145); Osmolality Calculated 294 mOsm/kg (285-295); Percent Saturation 18.1 % (20-50); Potassium 3.5 mmol/L (3.5-5.1); Sodium 139 mmol/L (136-145); Total Bilirubin 0.3 mg/dL (0.15-1.2); Total Iron Binding Capacity 314 mcg/dl; Total Protein 7.7 g/dL (6.6-8.7); Unsaturated Iron Binding 257 ug/dL (112-347)
[2023-12-30 12:34] LABS: Soluble Transferrin Receptor 3.05 mg/L (0.76-1.76)
== END 2023-12-26 23:59 | disposition home or self-care (01) ==
PROVIDERS: Nurse Practitioner Family; PCP Family Medicine; Visit Provider Internal Medicine Medical Oncology
DX: D64.9 Anemia, unspecified; L57.0 Actinic keratosis; L57.8 Other skin changes due to chronic exposure to nonionizing radiation; L81.4 Other melanin hyperpigmentation; D18.01 Hemangioma of skin and subcutaneous tissue; Z85.828 Personal history of other malignant neoplasm of skin; E61.1 Iron deficiency; Z79.899 Other long term (current) drug therapy; Z53.9 Procedure and treatment not carried out, unspecified reason
CPT/HCPCS: 17000; 36415; 80053; 82728; 83540; 83550; 84238; 85025; 99213; 99214

== ENCOUNTER → 2024-02-12 10:03 | Outpatient (BNVA) | payer MEDICARE, OTHER, SELFPAY | PROVIDERS: PCP Family Medicine; Visit Provider Family Medicine | DX: E11.42 Type 2 diabetes mellitus with diabetic polyneuropathy (principal); E11.9 Type 2 diabetes mellitus without complications; I10 Essential (primary) hypertension | CPT/HCPCS: 83036 ==

== ENCOUNTER 2024-02-21 10:00 | Oncology outpatient (recurring) (ONCR) | payer MEDICARE, OTHER, SELFPAY ==
[2024-02-14 10:05] VITALS: BP 157/82; PULSE 65; RESP 16; TEMP 36.5; O2SAT 97
[2024-02-14] MEDS: ferric carboxy (IVPB) 750 MG in sodium chloride 0.9% (100 ml) 100 ML 345 MG IV (10:12)
[2024-02-14 10:40] VITALS: BP 105/52; PULSE 67; O2SAT 98
[2024-02-21 10:08] VITALS: BP 116/68; PULSE 68; RESP 16; TEMP 36.6; O2SAT 96
[2024-02-21] MEDS: ferric carboxy (IVPB) 750 MG in sodium chloride 0.9% (100 ml) 100 ML 345 MG IV (10:10)
== END 2024-02-25 23:59 | disposition home or self-care (01) ==
PROVIDERS: PCP Family Medicine; Visit Provider Internal Medicine Medical Oncology
DX: D64.9 Anemia, unspecified (principal)
CPT/HCPCS: 96365; J1439

== ENCOUNTER 2024-03-24 10:38 | Oncology outpatient (recurring) (ONCR) | payer MEDICARE, OTHER, SELFPAY ==
[2024-03-24 11:36] LABS: Basophils % 0.2 %; Hematocrit 30.5 % (36-47); Lymphocytes # 2.1 10^3/uL (0.8-4.8); Lymphocytes % 25.8 %; Mean Corpuscular HGB Conc 33.4 g/dL (30-55); Mean Corpuscular Hemoglobin 30.6 pg (27-33); Mean Corpuscular Volume 91.6 fl (85-98); Mean Platelet Volume 9.9 fL (7.4-10.4); Monocytes # 0.6 10^3/uL (0.2-0.9); Monocytes % 7.8 %; Neutrophils % 65.6 %; Nucleated Red Blood Cells % 0 %; Platelet Count 193 10^3/cmm (157-399); Red Blood Count 3.33 10^6/uL (3.85-5.65); Red Cell Distribution Width 16.6 % (12.1-15.1); White Blood Count 8.23 10^3/uL (3.29-11.43)
[2024-03-24 11:52] LABS: Alanine Aminotransferase 10 U/L (0-33); Albumin Level 4.2 g/dL (3.5-5.2); Alkaline Phosphatase 64 U/L (35-105); Anion Gap 16.1 (5-19); Aspartate Amino Transferase 8 U/L (0-32); Blood Urea Nitrogen 18 mg/dL (8-23); Calcium 9.3 mg/dL (8.5-10.5); Carbon Dioxide 21 mmol/L (22-29); Chloride 106 mmol/L (98-107); Glucose 101 mg/dL (65-115); Osmolality Calculated 290 mOsm/kg (285-295); Potassium 4.1 mmol/L (3.5-5.1); Sodium 139 mmol/L (136-145); Total Bilirubin 0.2 mg/dL (0.15-1.2); Total Protein 7.2 g/dL (6.6-8.7)
[2024-03-24 13:42] LABS: Iron 67 ug/dL (37-145); Percent Saturation 25.6 % (20-50); Total Iron Binding Capacity 261 mcg/dl; Unsaturated Iron Binding 194 ug/dL (112-347)
== END 2024-03-27 23:59 | disposition home or self-care (01) ==
PROVIDERS: Nurse Practitioner Family; PCP Family Medicine; Visit Provider Internal Medicine Medical Oncology
DX: D50.9 Iron deficiency anemia, unspecified (principal); Z53.9 Procedure and treatment not carried out, unspecified reason; Z87.891 Personal history of nicotine dependence; Z79.899 Other long term (current) drug therapy
CPT/HCPCS: 36415; 80053; 83540; 83550; 85025; 99214

== ENCOUNTER 2024-06-17 11:00 | Oncology outpatient (recurring) (ONCR) | payer MEDICARE, OTHER, SELFPAY ==
[2024-05-28 13:03] LABS: Basophils % 0.3 %; Hematocrit 33.3 % (36-47); Lymphocytes # 2.4 10^3/uL (0.8-4.8); Lymphocytes % 22.5 %; Mean Corpuscular Hemoglobin 31.1 pg (27-33); Mean Corpuscular Volume 94.1 fl (85-98); Mean Platelet Volume 9.4 fL (7.4-10.4); Monocytes % 9.3 %; Neutrophils % 67.6 %; Nucleated Red Blood Cells % 0 %; Platelet Count 261 10^3/cmm (157-399); Red Blood Count 3.54 10^6/uL (3.85-5.65); Red Cell Distribution Width 13.5 % (12.1-15.1); White Blood Count 10.64 10^3/uL (3.29-11.43)
[2024-05-28 13:26] LABS: Alanine Aminotransferase 18 U/L (0-33); Albumin Level 4.2 g/dL (3.5-5.2); Alkaline Phosphatase 62 U/L (35-105); Anion Gap 15.9 (5-19); Aspartate Amino Transferase 9 U/L (0-32); Blood Urea Nitrogen 17 mg/dL (8-23); Calcium 9.3 mg/dL (8.5-10.5); Carbon Dioxide 27 mmol/L (22-29); Chloride 106 mmol/L (98-107); Glucose 74 mg/dL (65-115); Osmolality Calculated 300 mOsm/kg (285-295); Potassium 3.9 mmol/L (3.5-5.1); Sodium 145 mmol/L (136-145); Total Bilirubin 0.3 mg/dL (0.15-1.2); Total Protein 7.2 g/dL (6.6-8.7)
[2024-05-28 14:27] LABS: Ferritin 174 ng/mL (15-150); Iron 44 ug/dL (37-145); Percent Saturation 18.4 % (20-50); Total Iron Binding Capacity 238 mcg/dl; Unsaturated Iron Binding 194 ug/dL (112-347)
[2024-05-28 16:18] LABS: Free T4 Free Thyroxine 1.15 ng/dL (0.82-1.77); Thyroid Stimulating Hormone 1.56 uIU/mL (0.27-4.20)
[2024-06-10 11:12] VITALS: BP 185/68; PULSE 77; RESP 16; TEMP 36.5; O2SAT 95
[2024-06-10] MEDS: ferric carboxy (PYXIS) 750 MG in sodium chloride 0.9% (100 ml) 100 ML 345 MG IV (11:21)
[2024-06-10 12:06] VITALS: BP 171/96; PULSE 67; RESP 16; TEMP 36.3; O2SAT 98
[2024-06-17 11:05] VITALS: BP 136/84; PULSE 66; RESP 16; TEMP 36.9; O2SAT 97
[2024-06-17] MEDS: ferric carboxy (PYXIS) 750 MG in sodium chloride 0.9% (100 ml) 100 ML 345 MG IV (11:33)
[2024-06-17 12:11] VITALS: BP 169/74; PULSE 84; RESP 16; TEMP 36.6; O2SAT 96
== END 2024-06-27 23:55 | disposition home or self-care (01) ==
PROVIDERS: Nurse Practitioner Family; PCP Family Medicine; Visit Provider Internal Medicine Medical Oncology
DX: Z53.9 Procedure and treatment not carried out, unspecified reason (principal); D50.9 Iron deficiency anemia, unspecified; Z79.899 Other long term (current) drug therapy
CPT/HCPCS: 36415; 80053; 82728; 83540; 83550; 84439; 84443; 85025; 96365; 99214; J1439

== ENCOUNTER → 2024-06-23 10:42 | Outpatient (BNVA) | payer MEDICARE, OTHER, SELFPAY | PROVIDERS: PCP Family Medicine; Visit Provider Nurse Practitioner Family | DX: D48.5 Neoplasm of uncertain behavior of skin (principal); L57.0 Actinic keratosis; L57.8 Other skin changes due to chronic exposure to nonionizing radiation; L81.4 Other melanin hyperpigmentation; D18.01 Hemangioma of skin and subcutaneous tissue; Z85.828 Personal history of other malignant neoplasm of skin | CPT/HCPCS: 11102; 17000; 99213 ==

== ENCOUNTER → 2024-07-08 09:40 | Outpatient (BNVA) | payer MEDICARE, OTHER, SELFPAY | PROVIDERS: PCP Family Medicine; Visit Provider Dermatology | DX: C44.311 Basal cell carcinoma of skin of nose (principal) | CPT/HCPCS: 15260; 17311 ==

== ENCOUNTER 2024-07-15 09:03 | Outpatient (CLI) | payer MEDICARE, OTHER, SELFPAY ==
--- NOTE | 2024-07-15 09:00 | MM_ITS ---
WS: [id number] BILATERAL SCREENING DIGITAL TOMOSYNTHESIS MAMMOGRAM WITH CAD HISTORY: SCREENING COMPARISON: 08/26/2020, 04/03/2021 Bilateral CC and MLO views with tomosynthesis and synthetic mammography submitted. Computer aided det ection analyzed. Breast composition: The breasts are almost entirely fatty. No suspicious masses, microcalcifications or architectural distortion. Benign calcifications in each breast. MM/MM scr BI tomosynthesis [id number] IMPRESSION: BI-RADS: 2 - Benign. FOLLOW UP: 1 Year Follow-up
== END 2024-07-15 09:04 | disposition home or self-care (01) ==
LOC: MOBLMAM 09:05
PROVIDERS: PCP Family Medicine; Visit Provider Family Medicine
DX: Z12.31 Encounter for screening mammogram for malignant neoplasm of breast (principal); R92.313 Mammographic fatty tissue density, bilateral breasts; R92.1 Mammographic calcification found on diagnostic imaging of breast
CPT/HCPCS: 77063; 77067

== ENCOUNTER → 2024-07-21 10:22 | Outpatient (BNVA) | payer MEDICARE, OTHER, SELFPAY | PROVIDERS: PCP Family Medicine; Visit Provider Dermatology | DX: C44.311 Basal cell carcinoma of skin of nose (principal); Z48.817 Encounter for surgical aftercare following surgery on the skin and subcutaneous tissue | CPT/HCPCS: 99213 ==

== ENCOUNTER → 2024-07-27 09:32 | Outpatient (BNVA) | payer MEDICARE, OTHER, SELFPAY | PROVIDERS: PCP Family Medicine; Visit Provider Specialist | DX: Z96.651 Presence of right artificial knee joint (principal) | CPT/HCPCS: 73560; 73565; 99213 ==

== ENCOUNTER → 2024-08-11 10:45 | Outpatient (BNVA) | payer MEDICARE, OTHER, SELFPAY | PROVIDERS: PCP Family Medicine; Visit Provider Dermatology | DX: C44.311 Basal cell carcinoma of skin of nose (principal); Z48.817 Encounter for surgical aftercare following surgery on the skin and subcutaneous tissue | CPT/HCPCS: 99213 ==

== ENCOUNTER 2024-08-19 12:44 | Oncology outpatient (recurring) (ONCR) | payer MEDICARE, OTHER, SELFPAY ==
[2024-08-19 13:12] LABS: Basophils % 0.4 %; Hematocrit 35.4 % (36-47); Lymphocytes # 2.6 10^3/uL (0.8-4.8); Lymphocytes % 29.2 %; Mean Corpuscular HGB Conc 33.1 g/dL (30-55); Mean Corpuscular Hemoglobin 30.5 pg (27-33); Mean Corpuscular Volume 92.2 fl (85-98); Mean Platelet Volume 9.9 fL (7.4-10.4); Monocytes # 0.8 10^3/uL (0.2-0.9); Monocytes % 8.4 %; Neutrophils # 5.53 10^3/uL (1.8-7.7); Neutrophils % 61.6 %; Nucleated Red Blood Cells % 0 %; Platelet Count 264 10^3/cmm (157-399); Red Blood Count 3.84 10^6/uL (3.85-5.65); Red Cell Distribution Width 14.3 % (12.1-15.1); White Blood Count 8.98 10^3/uL (3.29-11.43)
[2024-08-19 13:40] LABS: Alanine Aminotransferase 13 U/L (0-33); Albumin Level 3.7 g/dL (3.5-5.2); Alkaline Phosphatase 84 U/L (35-105); Aspartate Amino Transferase 24 U/L (0-32); Blood Urea Nitrogen 18 mg/dL (8-23); Calcium 8.4 mg/dL (8.5-10.5); Carbon Dioxide 24 mmol/L (22-29); Chloride 106 mmol/L (98-107); Creatinine Clr Calc Pharmacy 32.3093; Free T4 Free Thyroxine 0.86 ng/dL (0.82-1.77); Globulin 2.5 g/dL (1.3-4.6); Glucose 96 mg/dL (65-115); Osmolality Calculated 296 mOsm/kg (285-295); Sodium 142 mmol/L (136-145); Thyroid Stimulating Hormone 1.03 uIU/mL (0.27-4.20); Total Bilirubin 0.2 mg/dL (0.15-1.2); Total Protein 6.2 g/dL (6.6-8.7)
[2024-08-19 14:02] LABS: Ferritin 621 ng/mL (15-150); Iron 54 ug/dL (37-145); Total Iron Binding Capacity 216 mcg/dl; Unsaturated Iron Binding 162 ug/dL (112-347)
== END 2024-08-27 23:59 | disposition home or self-care (01) ==
PROVIDERS: Internal Medicine Hematology & Oncology; PCP Family Medicine; Visit Provider Internal Medicine Medical Oncology
DX: D50.9 Iron deficiency anemia, unspecified; Z79.899 Other long term (current) drug therapy; G25.2 Other specified forms of tremor; Z87.891 Personal history of nicotine dependence
CPT/HCPCS: 36415; 80053; 82728; 83540; 83550; 84439; 84443; 85025; 99214

== ENCOUNTER → 2024-09-08 13:14 | Outpatient (BNVA) | payer MEDICARE, OTHER, SELFPAY | PROVIDERS: PCP Family Medicine; Visit Provider Dermatology | DX: Z48.817 Encounter for surgical aftercare following surgery on the skin and subcutaneous tissue (principal); Q17.0 Accessory auricle; Z85.828 Personal history of other malignant neoplasm of skin; L57.8 Other skin changes due to chronic exposure to nonionizing radiation; L57.0 Actinic keratosis | CPT/HCPCS: 17000; 99213 ==

== ENCOUNTER 2024-10-14 11:45 | Oncology outpatient (recurring) (ONCR) | payer MEDICARE, OTHER, SELFPAY ==
[2024-10-14 12:11] LABS: Basophils % 0.2 %; Hematocrit 34.7 % (36-47); Lymphocytes % 22.5 %; Mean Corpuscular Hemoglobin 30.7 pg (27-33); Mean Corpuscular Volume 90.4 fl (85-98); Mean Platelet Volume 9.8 fL (7.4-10.4); Monocytes # 0.7 10^3/uL (0.2-0.9); Monocytes % 7.4 %; Neutrophils % 69.3 %; Nucleated Red Blood Cells % 0 %; Platelet Count 271 10^3/cmm (157-399); Red Blood Count 3.84 10^6/uL (3.85-5.65); Red Cell Distribution Width 13.9 % (12.1-15.1); White Blood Count 9.08 10^3/uL (3.29-11.43)
[2024-10-14 12:12] LABS: Reticulocyte % 3.3 % (0.5-2.0)
[2024-10-14 12:34] LABS: Alanine Aminotransferase 11 U/L (0-33); Albumin Level 3.6 g/dL (3.5-5.2); Alkaline Phosphatase 73 U/L (35-105); Anion Gap 13.9 (5-19); Aspartate Amino Transferase 23 U/L (0-32); Blood Urea Nitrogen 12 mg/dL (8-23); Calcium 9.3 mg/dL (8.5-10.5); Carbon Dioxide 22 mmol/L (22-29); Chloride 106 mmol/L (98-107); Creatinine Clr Calc Pharmacy 36.2557; Ferritin 522 ng/mL (15-150); Globulin 2.9 g/dL (1.3-4.6); Glucose 90 mg/dL (65-115); Iron 75 ug/dL (37-145); Lactate Dehydrogenase 216 U/L (135-214); Osmolality Calculated 285 mOsm/kg (285-295); Percent Saturation 34.4 % (20-50); Potassium 3.9 mmol/L (3.5-5.1); Sodium 138 mmol/L (136-145); Total Bilirubin 0.2 mg/dL (0.15-1.2); Total Iron Binding Capacity 218 mcg/dl; Total Protein 6.5 g/dL (6.6-8.7); Unsaturated Iron Binding 143 ug/dL (112-347)
[2024-10-14 12:47] LABS: Vitamin B12 868 pg/mL (232-1245)
== END 2024-10-27 23:59 | disposition home or self-care (01) ==
PROVIDERS: Internal Medicine Hematology & Oncology; PCP Family Medicine; Visit Provider Internal Medicine
DX: D50.9 Iron deficiency anemia, unspecified; Z79.899 Other long term (current) drug therapy; G25.2 Other specified forms of tremor
CPT/HCPCS: 36415; 80053; 82607; 82728; 83540; 83550; 83615; 84238; 85025; 85045; 99214

== ENCOUNTER 2024-10-14 14:59 | Emergency (ER) | payer MEDICARE, OTHER, SELFPAY ==
[2024-10-14] VITALS (50 sets, daily range): BP systolic 135–220; BP diastolic 53–112; PULSE 76–93; RESP 11–33; TEMP 36.6; O2SAT 94–98; BMI 33.5
--- NOTE | 2024-10-14 15:15 | XRR_ITS ---
PROCEDURE INFORMATION: Exam: XR Chest Exam date and time: 10/14/2024 3:30 PM Age: 69 years old Clinical indication: Pain; Angina pectoris; Additional info: Cp TECHNIQUE: Imaging protocol: Radiologic exam of the chest. Views: 1 view. COMPARISON: CT abdomen pelvis con [id number] 10/05/2022 10:41 AM FINDINGS: Tubes, catheters and devices: Median sternotomy suture wires. Lungs: Unremarkable. No consolidation. Pleural spaces: Unremarkable. No pleural effusion. No pneumothorax. Heart/Mediastinum: Unremarkable. No cardiomegaly. Bones/joints: Unremarkable. XR/XR chest 1V portable [id number] IMPRESSION: No acute cardiopulmonary disease.
--- NOTE | 2024-10-14 15:15 | ECG_ITS ---
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 Measurements Intervals [place] Rate: 75 P: -13 MA: 149 QRS: -10 QRSD: 89 T: -19 QT: 410 QTc: 458 Interpretive Statements SINUS RHYTHM POSSIBLE LEFT ATRIAL ENLARGEMENT [-0.1mV P-WAVE IN V1/V2] POSSIBLE LEFT VENTRICULAR HYPERTROPHY [VOLTAGE CRITERIA PLUS LAE OR QRS WIDENING] NONSPECIFIC T-WAVE ABNORMALITY No previous ECG available for comparison Electronically Signed On 10-14-2024 21:18:49 DIRECTOR OF CLINICAL APPLICATIONS by Toya Nazario M.D. [id number]
--- NOTE | 2024-10-14 15:29 | CTR_ITS ---
PROCEDURE INFORMATION: Exam: CT Head Without Contrast Exam date and time: 10/14/2024 4:28 PM Age: 69 years old Clinical indication: Pain; Headache not specified; Additional info: [facility] TECHNIQUE: Imaging protocol: Computed tomography of the head without contrast. Radiation optimization: All CT scans at this facility use at least one of these dose optimization techniques: automated exposure control; mA and/or kV adjustment per patient size (includes targeted exams where dose is matched to clinical indication); or iterative reconstruction. COMPARISON: No relevant prior studies available. RADIATION DOSE METRICS: Total DLP (mGy-cm): 1088.21 FINDINGS: Brain: Normal. No hemorrhage. Unremarkable white matter. No mass effect. Cerebral ventricles: No ventriculomegaly. Paranasal sinuses: Visualized sinuses are unremarkable. No fluid levels. Mastoid air cells: Visualized mastoid air cells are well aerated. Bones: Unremarkable. No acute fracture. Soft tissues: Unremarkable. CT/CT head wo con* [id number] IMPRESSION: No acute intracranial abnormality.
--- NOTE | 2024-10-14 15:38 | W.ED.RECABL ---
HPI - Recheck/Abnormal Lab/Rx General: Chief Complaint: Recheck/Abnormal Lab/Rx Stated Complaint: high b/p, headache, not steady Time Seen by Provider: 10/14/24 15:15 Source: patient Mode of arrival: ambulatory Limitations: no limitations History of Present Illness: 69-year-old female states been having a hard time controlling her blood pressure over the last 6 weeks states she has been having hypertension states when she has hypertension she gets chest pain along with some dizziness has been going on for 6 weeks she is hypertensive here states she has a sharp pain in her chest she denies any shortness of breath denies any fever no slurred speech denies any visual disturbances or focal deficits she does have a headache Related Data Home Medications Medication Instructions Recorded Confirmed acetaminophen 650 mg 650 mg PO 3XD PRN Pain 10/22/19 10/14/24 tablet,extended release mecobalamin (vitamin B12) 1,000 1,000 mcg PO DAILY 10/22/19 10/14/24 mcg disintegrating tablet,sublingual multivitamin 1 tab PO QAM 10/22/19 10/14/24 cholecalciferol (vitamin D3) 125 5,000 unit PO DAILY 07/22/23 10/14/24 mcg (5,000 unit) capsule epinephrine 0.3 mg/0.3 mL 0.3 mg IM DAILY PRN Allergic 07/22/23 10/14/24 injection, auto-injector (EpiPen Reaction 2-Jacobo) aspirin 325 mg tablet 325 mg PO DAILY 09/09/23 10/14/24 Previous Rx's Medication Instructions Recorded blood sugar diagnostic (Blood #400 ea 04/27/21 Glucose Test strips) sertraline 100 mg tablet (Zoloft) 200 mg (2 x 100 mg) PO DAILY #180 02/11/23 tabs albuterol sulfate 90 mcg/actuation 2 puff inhalation QID PRN Wheezing 07/12/23 aerosol inhaler (ProAir HFA) #8.5 grams lancets 33 gauge [facility] 07/12/23 Plus Lancet) albuterol sulfate 2.5 mg/3 mL 2.5 mg (3 mL) inhalation Q6H #75 mL 09/09/23 (0.083 %) solution for nebulization exenatide microspheres 2 mg/0.85 2 mg (0.85 mL) SUBCUT Q7D diabetes 11/13/23 mL subcutaneous auto-injector #10.2 mL (Chase Pop) gabapentin 100 mg capsule 100 mg PO Q6H #360 caps 02/12/24 montelukast 10 mg tablet 10 mg PO DAILY #90 tabs 02/12/24 potassium chloride 20 mEq See Rx Instructions .Route 05/25/24 tablet,extended release .COMPLEX #90 tabs esomeprazole magnesium 40 mg 40 mg PO DAILY #90 caps 06/11/24 capsule,delayed release (Nexium) nystatin 100,000 unit/gram topical 1 applic topical BID #120 grams 06/11/24 powder fluticasone 250 mcg-salmeterol 50 1 inh inhalation BID #180 ea 07/23/24 mcg/dose blistr powdr for inhalation (Advair Diskus) metoprolol tartrate 75 mg tablet 75 mg PO BID #180 tabs 07/23/24 amlodipine 2.5 mg tablet 2.5 mg PO BID #270 tabs 09/07/24 bumetanide 1 mg tablet 1 mg PO DAILY #90 tabs 09/07/24 diabetic supplies, miscellan. #2 ea 09/07/24 lorazepam 1 mg tablet 1 mg PO BID PRN anxiety #60 tabs 09/07/24 metformin 1,000 mg tablet,extended 1,000 mg PO BID 2 weeks #28 tabs 09/07/24 release 24hr (osmotic) simvastatin 20 mg tablet 20 mg PO DAILY #90 tabs 09/07/24 valsartan 160 mg tablet 160 mg PO DAILY #90 tabs 09/07/24 isosorbide mononitrate 60 mg 60 mg PO QAM #90 tabs 10/12/24 tablet,extended release 24 hr spironolactone 25 mg tablet 25 mg PO DAILY #30 tabs 10/12/24 spironolactone 25 mg tablet 25 mg PO DAILY #90 tabs 10/12/24 Allergies Allergy/AdvReac Type Severity Reaction Status Date / Time bee venom protein (honey bee) Allergy ALGY-Anaphy Verified 10/14/24 12:07 laxis erythromycin base Allergy ADR-Nausea Verified 10/14/24 12:07 milnacipran [From Savella] Allergy ALGY-Anaphy Verified 10/14/24 12:07 laxis naproxen Allergy ALGY-Anaphy Verified 10/14/24 12:07 laxis Sulfa (Sulfonamide Allergy ALGY-Anaphy Verified 10/14/24 12:07 Antibiotics) laxis Review of Systems Const: Denies: fever(s), chills, body aches or change in appetite Eyes: Denies: blurry vision or eye discomfort ENMT: Denies: throat pain or dental pain Card: Reports: chest pain Resp: Denies: dyspnea GI: Denies: abdominal pain, nausea, vomiting or diarrhea Musc: Denies: neck pain or back pain Skin/Breast: Denies: rash Neuro: Reports: headache(s) PFSH ED PFSH: Medical History Polyuria History of nonmelanoma skin cancer Anemia COPD (chronic obstructive pulmonary disease) Chronic cystitis Post-traumatic stress disorder, chronic Asthma Gastro-esophageal reflux disease without esophagitis Fibromyalgia Depression, controlled Renal insufficiency, mild Flaccid bladder Mixed hyperlipidemia Hypertension Diabetic mononeuropathy associated with diabetes mellitus due to underlying condition Anxiety Type 2 diabetes mellitus Surgical History History of total knee arthroplasty (07/23/23) Right total knee arthroplasty Hx of colonoscopy before 2017 Dr Head History of esophagogastroduodenoscopy (EGD) Dr. Head History of cataract surgery BILATERAL Status post extracorporeal shock wave therapy H/O: hysterectomy Hx of tonsillectomy History of foot surgery left foot Aortic valve replaced H/O breast biopsy Family History Mother , AT AGE 83 Pneumonia DVT (deep venous thrombosis) Father , AT AGE 85 Cancer LUNG Other Hypertension Social History Smoking and tobacco/nicotine status: never used tobacco/nicotine Quit status (tobacco/nicotine): has quit using Year quit tobacco: 1987 Former quit date comment: Hx of 0.5 PPD x 20 Years Second hand smoke exposure: Yes Alcohol intake: current Alcohol intake frequency: holidays/special occasions only Substance/Drug Use: never Lives independently: Yes Household members: spouse Marital status: Current occupational status: retired Sexually active: No Do you think of yourself as: Straight/Heterosexual Current gender identity: Female Female Reproductive History: Spontaneous abortions: No Physical Exam Const: COMMON NORMALS: no acute distress, patient oriented x3 and healthy appearing HENMT: COMMON NORMALS: normocephalic and atraumatic HEAD & SCALP: normocephalic and atraumatic Eye: COMMON NORMALS: Equal, round and reactive pupils present and EOMs intact bilaterally PUPIL: Yes Equal, round and reactive pupils present Neck/C-Spine: COMMON NORMALS: full ROM and supple Chest: COMMONS NORMALS: normal inspection of the chest and normal palpation of entire chest wall Resp: COMMON NORMALS: normal respiratory effort, No retractions, No use of accessory muscles and clear to auscultation bilaterally AUSCULTATION: clear to auscultation bilaterally Cardio: COMMON NORMALS: regular rate, regular rhythm and No murmurs present (Cardio) RATE: regular rate RHYTHM: regular rhythm GI: COMMON NORMALS: Normal to inspection, nondistended, normoactive bowel sounds present, Soft to palpation, non-tender and no masses PALPATION: Yes Soft to palpation Extremity: COMMON NORMALS: normal to inspection and full ROM Neuro: COMMON NORMALS: patient oriented x3, moves all extremities and no focal motor deficits Psych: COMMON NORMALS: mental status grossly normal, Normal thought process present and cooperative THOUGHT PROCESS: Normal thought process present Skin: COMMON NORMALS: no rashes or lesions noted and no wounds GENERAL SKIN EXAM: no rashes or lesions noted Course Vital Signs: Vital signs: Vital Signs Temperature 97.8 F 10/14/24 15:02 Pulse Rate 82 10/14/24 20:00 Respiratory Rate 11 L 10/14/24 20:00 Blood Pressure 179/100 10/14/24 20:00 Pulse Oximetry 94 10/14/24 20:00 Oxygen Delivery Me thod Room Air 10/14/24 17:15 MDM - Recheck/Abnormal Lab/Rx Medical Decision Making Patient presents here with chest pain hypertension troponins here negative head CT is normal her blood pressures improved she is to follow-up with her PCP return if worsening she understands agrees to plan. Medical Records I reviewed the patient's medical records. Lab Data I reviewed the patient's lab results. 10/14/24 17:55 10/14/24 17:55 Radiology Impressions Chest X-Ray 10/14/24 15:15 IMPRESSION: No acute cardiopulmonary disease. Head CT 10/14/24 15:29 IMPRESSION: No acute intracranial abnormality. Laboratory Results WBC 10.88 10^3/uL (3.29-11.43) 10/14/24 17:55 RBC 3.95 10^6/uL (3.85-5.65) 10/14/24 17:55 Hgb 12.10 g/dL (11.27-16.99) 10/14/24 17:55 Hct 35.4 % (36-47) L 10/14/24 17:55 MCV 89.6 fl (85-98) 10/14/24 17:55 MCH 30.6 pg (27-33) 10/14/24 17:55 MCHC 34.2 g/dL (30-55) 10/14/24 17:55 RDW 13.9 % (12.1-15.1) 10/14/24 17:55 Plt Count 290 10^3/cmm (157-399) 10/14/24 17:55 MPV 9.8 fL (7.4-10.4) 10/14/24 17:55 Neut % (Auto) 63.9 % 10/14/24 17:55 Lymph % (Auto) 28.3 % 10/14/24 17:55 Evangeline % (Auto) 7.0 % 10/14/24 17:55 Eos % (Auto) 0.0 % 10/14/24 17:55 Baso % (Auto) 0.3 % 10/14/24 17:55 Neut # (Auto) 6.96 10^3/uL (1.8-7.7) 10/14/24 17:55 Lymph # (Auto) 3.1 10^3/uL (0.8-4.8) 10/14/24 17:55 Evangeline # (Auto) 0.8 10^3/uL (0.2-0.9) 10/14/24 17:55 Eos # (Auto) 0.0 10^3/uL (0.0-0.8) 10/14/24 17:55 Baso # (Auto) 0.0 10^3/uL (0.0-0.1) 10/14/24 17:55 Nucleated RBC % (auto) 0 % 10/14/24 17:55 Nucleated RBCs # 0.0 /100WBC 10/14/24 17:55 PT 13.00 SECONDS (12.1-14.9) 10/14/24 16:00 INR 0.95 (0.8-1.2) 10/14/24 16:00 Sodium 139 mmol/L (136-145) 10/14/24 17:55 Potassium 3.4 mmol/L (3.5-5.1) L 10/14/24 17:55 Chloride 107 mmol/L (98-107) 10/14/24 17:55 Carbon Dioxide 17 mmol/L (22-29) L 10/14/24 17:55 Anion Gap 18.4 (5-19) 10/14/24 17:55 BUN 14 mg/dL (8-23) 10/14/24 17:55 Creatinine 1.7 mg/dL (0.5-0.9) H 10/14/24 17:55 GFR Calculation Not Reportable 10/14/24 17:55 Glucose 135 mg/dL (65-115) H 10/14/24 17:55 Calculated Osmolality 291 mOsm/kg (285-295) 10/14/24 17:55 Calcium 9.5 mg/dL (8.5-10.5) 10/14/24 17:55 Total Bilirubin 0.2 mg/dL (0.15-1.2) 10/14/24 17:55 AST 18 U/L (0-32) 10/14/24 17:55 ALT 13 U/L (0-33) 10/14/24 17:55 Alkaline Phosphatase 87 U/L (35-105) 10/14/24 17:55 Troponin T Baseline 19 ng/L (0-10) H 10/14/24 17:08 Troponin T 120 Minute 18.25 ng/L (0-10) H 10/14/24 19:16 Delta Troponin T -0.75 ABS# (0-10) L 10/14/24 19:16 Total Protein 6.6 g/dL (6.6-8.7) 10/14/24 17:55 Albumin 3.7 g/dL (3.5-5.2) 10/14/24 17:55 Globulin 2.9 g/dL (1.3-4.6) 10/14/24 17:55 All radiology interpretation(s) finalized by discharge EKG Data EKG 1: I personally reviewed and interpreted this EKG as follows: EKG interpretation date: 10/14/24 EKG interpretation time: 15:08 Interpretation: nsr hr [address] elevation qrs 89qtc 438 EKG 2: I personally reviewed and interpreted this EKG as follows: EKG interpretation date: 10/14/24 EKG interpretation time: 17:06 Interpretation: nsr hr [address] elevation qrs 90 qtc 432 Discharge Plan Discharge Patient Disposition: Home Clinical Impression: Chest pain Hypertension Qualifiers: Hypertension type: primary hypertension Qualified Code(s): I10 - Essential (primary) hypertension Condition: Stable Prescriptions: No Action multivitamin Tablet 1 tab PO QAM acetaminophen 650 mg tablet extended release 650 mg PO 3XD PRN (Reason: Pain) mecobalamin (vitamin B12) 1,000 mcg tablet,disintegrating 1,000 mcg PO DAILY (DME) Blood Glucose Test Strip See Rx Instructions .ROUTE .MEDSUPPLY Qty: 400 3RF Rx Instructions: As directed to test blood sugar 3-4 times a day aspirin 325 mg tablet 325 mg PO DAILY albuterol sulfate 2.5 mg /3 mL (0.083 %) solution for nebulization 2.5 mg INHALATION Q6H Qty: 75 11RF Bydureon BCise 2 mg/0.85 mL auto-injector 2 mg SUBCUT Q7D Qty: 10.2 3RF potassium chloride 20 mEq tablet extended release See Rx Instructions .ROUTE .COMPLEX Qty: 90 3RF Dose Instruction: TAKE ONE TABLET BY MOUTH ONCE DAILY Rx Instructions: TAKE ONE TABLET BY MOUTH ONCE DAILY metoprolol tartrate 75 mg tablet 75 mg PO BID Qty: 180 2RF fluticasone propion-salmeterol [Advair Diskus] 250-50 mcg/dose blister with device 1 inh INHALATION BID Qty: 180 3RF sertraline [Zoloft] 100 mg tablet 200 mg PO DAILY Qty: 180 3RF albuterol sulfate [ProAir HFA] 90 mcg/actuation HFA aerosol inhaler 2 puff INHALATION QID PRN (Reason: Wheezing) Qty: 8.5 11RF (DME) lancets [OneTouch Delica Plus Lancet] 33 gauge misc See Rx Instructions .ROUTE .COMPLEX Qty: 400 4RF Dose Instruction: USE 3 TO 4 TIMES DAILY( TO TEST BLOOD SUGAR) DIRECTED Rx Instructions: USE 3 TO 4 TIMES DAILY( TO TEST BLOOD SUGAR) DIRECTED gabapentin 100 mg capsule 100 mg PO Q6H Qty: 360 3RF Rx Instructions: one capsule four times daily montelukast 10 mg tablet 10 mg PO DAILY Qty: 90 3RF esomeprazole magnesium [Nexium] 40 mg capsule,delayed release(DR/EC) 40 mg PO DAILY Qty: 90 3RF nystatin 100,000 unit/gram powder 1 applic topical BID Qty: 120 3RF amlodipine 2.5 mg tablet 2.5 mg PO BID Qty: 270 2RF valsartan 160 mg tablet 160 mg PO DAILY Qty: 90 3RF lorazepam 1 mg tablet 1 mg PO BID PRN (Reason: anxiety) Qty: 60 2RF simvastatin 20 mg tablet 20 mg PO DAILY Qty: 90 3RF bumetanide 1 mg tablet 1 mg PO DAILY Qty: 90 3RF (DME) diabetic supplies, miscellan. Misc See Rx Instructions .ROUTE .MEDSUPPLY Qty: 2 0RF Rx Instructions: Diabetic shoes and inserts. Please issue 2 pair. spironolactone 25 mg tablet 25 mg PO DAILY Qty: 90 3RF isosorbide mononitrate 60 mg tablet extended release 24 hr 60 mg PO QAM Qty: 90 3RF spironolactone 25 mg tablet 25 mg PO DAILY Qty: 30 0RF metformin 1,000 mg tablet extended release 24 hr 1,000 mg PO BID 14 Days Qty: 28 0RF EpiPen 2-Jacobo 0.3 mg/0.3 mL auto-injector 0.3 mg IM DAILY PRN (Reason: Allergic Reaction) Rx Instructions: as needed cholecalciferol (vitamin D3) 125 mcg (5,000 unit) capsule 5,000 unit PO DAILY Discharge Orders: Discharge ED (Routine); Ordered 10/14/24 Ordered By: Americo Funk Referrals: Gene Nguyen DO [Primary Care Provider] - 4-7 days Discharge Diet: Advance as tolerated Discharge Activity: Resume usual activity Patient Instructions: Hypertension (ED) Coding Level of Care Code ED 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
[2024-10-14] MEDS: hyDRALAzine 20 mg/mL INJ 1 mL 10 MG IVP ×2 (16:43→17:23)
--- NOTE | 2024-10-14 17:06 | ECG_ITS ---
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 Measurements Intervals [place] Rate: 81 P: 75 LA: 145 QRS: 66 QRSD: 90 T: 71 QT: 395 QTc: 460 Interpretive Statements SINUS RHYTHM POSSIBLE LEFT ATRIAL ENLARGEMENT [-0.1mV P-WAVE IN V1/V2] NONSPECIFIC T-WAVE ABNORMALITY Compared to ECG 10/14/2024 15:08:06 No significant changes Electronically Signed On 10-14-2024 21:41:40 BEATER [employer] by Toya Nazario M.D. [id number]
[2024-10-14 17:18] LABS: INR 0.95 (0.8-1.2)
[2024-10-14 18:11] LABS: Troponin(5th) Baseline 19 ng/L (0-10)
[2024-10-14 18:12] LABS: Basophils % 0.3 %; Hematocrit 35.4 % (36-47); Lymphocytes # 3.1 10^3/uL (0.8-4.8); Lymphocytes % 28.3 %; Mean Corpuscular HGB Conc 34.2 g/dL (30-55); Mean Corpuscular Hemoglobin 30.6 pg (27-33); Mean Corpuscular Volume 89.6 fl (85-98); Mean Platelet Volume 9.8 fL (7.4-10.4); Monocytes # 0.8 10^3/uL (0.2-0.9); Neutrophils # 6.96 10^3/uL (1.8-7.7); Neutrophils % 63.9 %; Nucleated Red Blood Cells % 0 %; Platelet Count 290 10^3/cmm (157-399); Red Blood Count 3.95 10^6/uL (3.85-5.65); Red Cell Distribution Width 13.9 % (12.1-15.1); White Blood Count 10.88 10^3/uL (3.29-11.43)
[2024-10-14 18:35] LABS: Alanine Aminotransferase 13 U/L (0-33); Albumin Level 3.7 g/dL (3.5-5.2); Alkaline Phosphatase 87 U/L (35-105); Anion Gap 18.4 (5-19); Aspartate Amino Transferase 18 U/L (0-32); Blood Urea Nitrogen 14 mg/dL (8-23); Calcium 9.5 mg/dL (8.5-10.5); Carbon Dioxide 17 mmol/L (22-29); Chloride 107 mmol/L (98-107); Creatinine Clr Calc Pharmacy 34.2098; Globulin 2.9 g/dL (1.3-4.6); Glucose 135 mg/dL (65-115); Osmolality Calculated 291 mOsm/kg (285-295); Potassium 3.4 mmol/L (3.5-5.1); Sodium 139 mmol/L (136-145); Total Bilirubin 0.2 mg/dL (0.15-1.2); Total Protein 6.6 g/dL (6.6-8.7)
[2024-10-14 20:06] LABS: Troponin 5 2HR 18.25 ng/L (0-10)
[2024-10-14 20:09] LABS: Troponin 5 2HR Delta -0.75 ABS# (0-10)
== END 2024-10-14 20:40 | disposition home or self-care (01) ==
PROVIDERS: Emergency Provider Emergency Medicine; PCP Family Medicine
DX: R07.9 Chest pain, unspecified (principal); I10 Essential (primary) hypertension; Z79.82 Long term (current) use of aspirin; Z87.891 Personal history of nicotine dependence; J44.9 Chronic obstructive pulmonary disease, unspecified; E11.41 Type 2 diabetes mellitus with diabetic mononeuropathy; E78.2 Mixed hyperlipidemia
CPT/HCPCS: 36415; 70450; 71045; 80053; 84484; 85025; 85610; 93005; 96374; 96376; 99285; J0360

== ENCOUNTER 2024-11-11 14:26 | Oncology outpatient (recurring) (ONCR) | payer MEDICARE, OTHER, SELFPAY ==
--- NOTE | 2024-11-11 14:30 | XR_ITS ---
WS: [id number] SCREENING DEXA SCAN [employer] CLINICAL INFORMATION: M81.0 - Age-related osteoporosis without current patholog... COMPARISON: None. FINDINGS: The L1-L4 bone mineral density measures 1.391 g/cm2. This corresponds to a T score score of 1.8 and Z score of 2.4. Left femoral neck bone mineral density measures 0.999 g/cm2. This corresponds to a T score of -0.1 an d Z score of 0.7. Right femoral neck bone mineral density measures 0.986 g/cm2. This corresponds to a T score -0.2of an d Z score of 0.6. Mean femoral neck bone mineral density measures 0.993 g/cm2. This corresponds to a T score of -0.1 an d Z score of 0.7. XR/XR DEXA axial skeleton* [id number] IMPRESSION: Normal bone mineralization. Patient's FRAX calculated 10 year probability for major osteoporotic fracture i s 13.9% and osteoporotic hip fracture is 3.3%.
== END 2024-11-27 23:59 | disposition home or self-care (01) ==
LOC: RAD 14:27 → ONCMED 11-12 09:31
PROVIDERS: PCP Family Medicine; Visit Provider Family Medicine
DX: Z53.9 Procedure and treatment not carried out, unspecified reason (principal); D50.9 Iron deficiency anemia, unspecified; Z79.899 Other long term (current) drug therapy; G25.2 Other specified forms of tremor; M81.0 Age-related osteoporosis without current pathological fracture
CPT/HCPCS: 77080

== ENCOUNTER → 2024-12-03 09:00 | Outpatient (BNVA) | payer MEDICARE, OTHER, SELFPAY | PROVIDERS: PCP Family Medicine; Visit Provider Family Medicine | DX: E11.22 Type 2 diabetes mellitus with diabetic chronic kidney disease (principal); N18.30 Chronic kidney disease, stage 3 unspecified | CPT/HCPCS: 80048 ==

== ENCOUNTER 2024-12-31 09:09 | Oncology outpatient (recurring) (ONCR) | payer MEDICARE, OTHER, SELFPAY ==
[2024-12-31 09:39] LABS: Basophils % 0.5 %; Hematocrit 33.2 % (36-47); Lymphocytes # 2.1 10^3/uL (0.8-4.8); Lymphocytes % 26.1 %; Mean Corpuscular HGB Conc 32.5 g/dL (30-55); Mean Corpuscular Hemoglobin 31.3 pg (27-33); Mean Corpuscular Volume 96.2 fl (85-98); Mean Platelet Volume 10.1 fL (7.4-10.4); Monocytes # 0.6 10^3/uL (0.2-0.9); Neutrophils # 5.33 10^3/uL (1.8-7.7); Neutrophils % 65.3 %; Nucleated Red Blood Cells % 0 %; Platelet Count 241 10^3/cmm (157-399); Red Blood Count 3.45 10^6/uL (3.85-5.65); White Blood Count 8.16 10^3/uL (3.29-11.43)
[2024-12-31 10:00] LABS: Alanine Aminotransferase 21 U/L (0-33); Albumin Level 4.4 g/dL (3.5-5.2); Alkaline Phosphatase 74 U/L (35-105); Anion Gap 17.3 (5-19); Aspartate Amino Transferase 20 U/L (0-32); Blood Urea Nitrogen 23 mg/dL (8-23); Carbon Dioxide 24 mmol/L (22-29); Chloride 103 mmol/L (98-107); Ferritin 412 ng/mL (15-150); Globulin 3.1 g/dL (1.3-4.6); Glucose 130 mg/dL (65-115); Iron 71 ug/dL (37-145); Osmolality Calculated 295 mOsm/kg (285-295); Percent Saturation 27.8 % (20-50); Potassium 4.3 mmol/L (3.5-5.1); Sodium 140 mmol/L (136-145); Total Bilirubin 0.2 mg/dL (0.15-1.2); Total Iron Binding Capacity 255 mcg/dl; Total Protein 7.5 g/dL (6.6-8.7); Unsaturated Iron Binding 184 ug/dL (112-347)
== END 2025-01-25 23:59 | disposition home or self-care (01) ==
PROVIDERS: Nurse Practitioner Family; PCP Family Medicine; Visit Provider Family Medicine
DX: D64.9 Anemia, unspecified (principal); E11.22 Type 2 diabetes mellitus with diabetic chronic kidney disease; N18.30 Chronic kidney disease, stage 3 unspecified
CPT/HCPCS: 36415; 80053; 82728; 83540; 83550; 85025; 99213

== ENCOUNTER → 2025-01-13 09:39 | Outpatient (BNVA) | payer MEDICARE, OTHER, SELFPAY | PROVIDERS: PCP Family Medicine; Visit Provider Podiatrist Foot & Ankle Surgery | DX: M79.671 Pain in right foot (principal); M79.672 Pain in left foot; E11.42 Type 2 diabetes mellitus with diabetic polyneuropathy; Z79.84 Long term (current) use of oral hypoglycemic drugs; R60.9 Edema, unspecified | CPT/HCPCS: 99203 ==

== ENCOUNTER → 2025-02-10 10:48 | Outpatient (BNVA) | payer MEDICARE, OTHER, SELFPAY | PROVIDERS: PCP Family Medicine; Visit Provider Podiatrist Foot & Ankle Surgery | DX: E11.42 Type 2 diabetes mellitus with diabetic polyneuropathy (principal); E11.621 Type 2 diabetes mellitus with foot ulcer; L97.511 Non-pressure chronic ulcer of other part of right foot limited to breakdown of skin; Z79.84 Long term (current) use of oral hypoglycemic drugs | CPT/HCPCS: 99213 ==

== ENCOUNTER → 2025-03-08 10:56 | Outpatient (BNVA) | payer MEDICARE, OTHER, SELFPAY | PROVIDERS: PCP Family Medicine; Visit Provider Nurse Practitioner Family | DX: D22.5 Melanocytic nevi of trunk (principal); L57.8 Other skin changes due to chronic exposure to nonionizing radiation; L81.4 Other melanin hyperpigmentation; L82.1 Other seborrheic keratosis; L30.4 Erythema intertrigo; Z08 Encounter for follow-up examination after completed treatment for malignant neoplasm; Z85.828 Personal history of other malignant neoplasm of skin; L57.0 Actinic keratosis | CPT/HCPCS: 17000; 99213 ==

== ENCOUNTER 2025-03-20 12:28 | Emergency (ER) | payer MEDICARE, OTHER, SELFPAY ==
[2025-03-20 12:29] VITALS: BP 149/70; PULSE 85; TEMP 37.1; O2SAT 97; BMI 34.4
[2025-03-20 13:08] VITALS: BP 160/76; PULSE 76; O2SAT 94
--- NOTE | 2025-03-20 13:10 | PC.NURSE ---
pt up and ambulated to restroom with a hospital walker. pt did okay with no physical assistance and able to bear weight to all extremities with issue.
--- NOTE | 2025-03-20 13:15 | CTR_ITS ---
PROCEDURE INFORMATION: Exam: CT Thoracic Spine Without Contrast Exam date and time: 03/20/2025 1:28 PM Age: 70 years old Clinical indication: Injury or trauma; Fall; Blunt trauma (contusions or hematomas); Additional info: Back pain after fall TECHNIQUE: Imaging protocol: Computed tomography of the thoracic spine without contrast. Radiation optimization: All CT scans at this facility use at least one of these dose optimization techniques: automated exposure control; mA and/or kV adjustment per patient size (includes targeted exams where dose is matched to clinical indication); or iterative reconstruction. COMPARISON: CT abdomen pelvis wo con [id number] 10/05/2022 10:41 AM RADIATION DOSE METRICS: Total DLP (mGy-cm): 1189.04 FINDINGS: Bones/joints: Multilevel bridging osteophytes are seen. No fracture is seen. Soft tissues: Unremarkable. Vasculature: Mild calcified atherosclerotic changes are seen in the thoracic aorta. CT/CT thoracic spin wo con* [id number] IMPRESSION: 1. No fracture is seen. 2. Multilevel spondylotic changes are seen as described. 3. Mild calcified atherosclerotic changes are seen in the thoracic aorta.
--- NOTE | 2025-03-20 13:15 | XRR_ITS ---
PROCEDURE INFORMATION: Exam: XR Chest Exam date and time: 03/20/2025 1:37 PM Age: 70 years old Clinical indication: Chest wall pain; Prior surgery; Surgery date: 6+ months; Surgery type: Valve replacement; Fall, back pain TECHNIQUE: Imaging protocol: Radiologic exam of the chest. Views: 2 views. COMPARISON: CR XR chest 1V portable [id number] 10/14/2024 3:30 PM FINDINGS: Lungs: Pulmonary vessels are within normal limits. The lungs are clear. Pleural spaces: No pneumothorax. Heart/Mediastinum: Aortic valve replacement. Cardiomediastinal silhouette is within normal limits. Bones/joints: Post sternotomy changes are seen. XR/XR chest 2V* [id number] IMPRESSION: No acute findings.
[2025-03-20] MEDS: acetaminophen 500 mg Tablet 1000 MG PO (13:20)
--- NOTE | 2025-03-20 13:57 | W.ED.EXTPRO ---
HPI - Extremity Problem General: Chief complaint: Extremity Injury, Upper Stated complaint: right shoulder pain s/p fall Time Seen by Provider: 03/20/25 12:31 History of Present Illness: 70-year-old female is presenting after a fall, she says she feels like she is okay but her insisted that she come for evaluation. She states she was getting up out of bed and her assisting her but both are hard and she lost balance and fell backwards, she states she did not strike her head denies any LOC no headache neck pain. She does have some upper back pain from the fall, denies lower back pain. She reports right upper extremity pain from recent dog bite from over a week ago that her primary doctor is treating her with antibiotics. She feels like her right upper extremity pain and swelling is improving. She denies any fever today. She denies any generalized weakness fevers chills or fatigue today. She denies any other injuries denies any chest pain shortness of breath or cough no abdominal pain nausea vomiting diarrhea or urinary symptoms no lower extremity pains no associated numbness or motor weakness. Associated symptoms: Deny chest pain or fever(s) Related Data Home Medications ?Medication ?Instructions ?Recorded ?Confirmed acetaminophen 650 mg 650 mg PO 3XD PRN Pain 10/22/19 03/20/25 tablet,extended release multivitamin 1 tab PO QAM 10/22/19 03/20/25 cholecalciferol (vitamin D3) 125 5,000 unit PO DAILY 07/22/23 03/20/25 mcg (5,000 unit) capsule aspirin 325 mg tablet 325 mg PO DAILY 09/09/23 03/20/25 albuterol sulfate 90 mcg/actuation 1 inh inhalation QID PRN Wheezing 03/20/25 03/20/25 aerosol inhaler cetirizine 10 mg tablet (Zyrtec) 10 mg PO DAILY PRN allergies 03/20/25 03/20/25 cyanocobalamin (vitamin B-12) 5,000 mcg sublingual DAILY 03/20/25 03/20/25 5,000 mcg sublingual tablet (Vitamin B-12) fluticasone 250 mcg-salmeterol 50 1 inh inhalation BID 03/20/25 03/20/25 mcg/dose blistr powdr for inhalation (Wixela Inhub) gabapentin 100 mg capsule 100 mg PO QID 03/20/25 03/20/25 ketoconazole 2 % topical cream 1 applic topical BID PRN affected 03/20/25 03/20/25 skin folds metformin 500 mg tablet,extended 1,000 mg PO BID 03/20/25 03/20/25 release 24 hr potassium chloride 20 mEq 20 meq PO DAILY 03/20/25 03/20/25 tablet,extended release Previous Rx's ?Medication ?Instructions ?Recorded blood sugar diagnostic (Blood #400 ea 04/27/21 Glucose Test strips) esomeprazole magnesium 40 mg 40 mg PO DAILY #90 caps 06/11/24 capsule,delayed release (Nexium) metoprolol tartrate 75 mg tablet 75 mg PO BID #180 tabs 07/23/24 amlodipine 2.5 mg tablet 2.5 mg PO BID #270 tabs 09/07/24 bumetanide 1 mg tablet 1 mg PO DAILY #90 tabs 09/07/24 diabetic supplies, miscellan. #2 ea 09/07/24 simvastatin 20 mg tablet 20 mg PO DAILY #90 tabs 09/07/24 valsartan 160 mg tablet 160 mg PO DAILY #90 tabs 09/07/24 isosorbide mononitrate 60 mg 60 mg PO QAM #90 tabs 10/12/24 tablet,extended release 24 hr exenatide microspheres 2 mg/0.85 2 mg (0.85 mL) SUBCUT Q7D diabetes 11/04/24 mL subcutaneous auto-injector #10.2 mL (Chase Pop) sertraline 100 mg tablet (Zoloft) 200 mg (2 x 100 mg) PO DAILY 30 11/05/24 days #60 tabs spironolactone 25 mg tablet 25 mg PO DAILY #90 tabs 11/05/24 hydralazine 50 mg tablet 50 mg PO TID #270 tabs 12/03/24 montelukast 10 mg tablet 10 mg PO DAILY #90 tabs 01/04/25 lorazepam 1 mg tablet 1 mg PO BID PRN anxiety #60 tabs 03/05/25 amoxicillin 875 mg-potassium 1 tab PO Q12H 10 days #20 tabs 03/15/25 clavulanate 125 mg tablet Allergies Allergy/AdvReac Type Severity Reaction Status Date / Time bee venom protein (honey bee) Allergy ALGY-Anaphy Verified 03/15/25 11:21 laxis erythromycin base Allergy ADR-Nausea Verified 03/15/25 11:21 milnacipran (From Savella) Allergy ALGY-Anaphy Verified 03/15/25 11:21 laxis naproxen Allergy ALGY-Anaphy Verified 03/15/25 11:21 laxis Sulfa (Sulfonamide Allergy ALGY-Anaphy Verified 03/15/25 11:21 Antibiotics) laxis Review of Systems Const: Denies: fever(s) or chills Card: Denies: chest pain or dyspnea on exertion Resp: Denies: dyspnea or productive cough GI: Denies: abdominal pain, nausea or vomiting : Denies: difficulty voiding Musc: Reports: back pain Skin/Breast: Denies: changes in skin color Neuro: Denies: numbness in extremities or weakness in extremities Psych: Denies: anxiety Jered/Lymph: Denies: easy bruising or easy bleeding PFSH ED PFSH: Medical History Psychiatric care Polyuria History of nonmelanoma skin cancer Anemia COPD (chronic obstructive pulmonary disease) Chronic cystitis Post-traumatic stress disorder, chronic Asthma Gastro-esophageal reflux disease without esophagitis Fibromyalgia Depression, controlled Renal insufficiency, mild Flaccid bladder Mixed hyperlipidemia Hypertension Diabetic mononeuropathy associated with diabetes mellitus due to underlying condition Anxiety Type 2 diabetes mellitus Surgical History History of total knee arthroplasty (07/23/23) Right total knee arthroplasty Hx of colonoscopy before 2018 Dr Head History of esophagogastroduodenoscopy (EGD) Dr. Head History of cataract surgery BILATERAL Status post extracorporeal shock wave therapy H/O: hysterectomy Hx of tonsillectomy History of foot surgery left foot Aortic valve replaced H/O breast biopsy Family History Mother , AT AGE 83 Pneumonia DVT (deep venous thrombosis) Father , AT AGE 85 Cancer LUNG Other Hypertension Social History Smoking and tobacco/nicotine status: never used tobacco/nicotine Quit status (tobacco/nicotine): has quit using Year quit tobacco: 1987 Former quit date comment: Hx of 0.5 PPD x 20 Years Second hand smoke exposure: Yes Alcohol intake: current Alcohol intake frequency: holidays/special occasions only Substance/Drug Use: never Lives independently: Yes Household members: spouse Marital status: Current occupational status: retired Sexually active: No Do you think of yourself as: Straight/Heterosexual Current gender identity: Female Female Reproductive History: Spontaneous abortions: No Physical Exam Narrative: EXAM NARRATIVE: GEN: well-appearing, in no acute distress Head: normocephalic, atraumatic Eyes: pupils, equal, round and reactive to light, extraocular movements are intact, no conjunctival redness or discharge. Ears: external ears are normal. Nose: Normal nares. Mouth and throat: MMM. Normal gums, mucosa, palate. NECK: Supple, with no masses. CV: RRR, no m/r/g. LUNGS: CTAB, no w/r/c. ABD: Soft, NT/ND, NBS, no masses or organomegaly. SKIN: Patient has a small scab on the dorsum of her right hand from dog bite, there is no associated erythema or edema or swelling to the right upper extremity hand forearm or otherwise to suggest acute infection otherwise warm, well perfused. No skin rashes or abnormal lesions. MSK: Diffuse tenderness over the thoracic back including midline paraspinal musculature, no midline C-spine tenderness, no midline lumbar tenderness, no anterior rib tenderness, no pelvic tenderness no extremity abnormalities, no deformity, no tenderness, normal ROM, no edema NEURO: alert and oriented x 3, normal speech, no motor or sensory deficits, no focal neuro deficits. PSYCH: Good Judgment. Pleasant, cooperative. appropriate mood. Course Vital Signs: Vital signs: Vital Signs Temperature 98.7 F 03/20/25 12:29 Pulse Rate 74 03/20/25 15:00 Blood Pressure 110/53 03/20/25 15:00 Pulse Oximetry 96 03/20/25 15:00 Oxygen Delivery Me thod Room Air 03/20/25 15:00 MDM - Extremity (Nontraumatic) Medical Decision Making Patient presented with a ground level mechanical fall no significant injuries, no head strike, imaging performed to evaluate her upper back pain. CT thoracic spine x-ray negative for acute pathology. Her right upper extremity appears to be improving and demonstrates no signs of cellulitis or acute infection. Patient does feel proved she is otherwise neurologically intact normal vital signs feels well and is stable for discharge. Lab Data Radiology Impressions Chest X-Ray 03/20/25 13:15 IMPRESSION: No acute findings. Thoracic Spine CT 03/20/25 13:15 IMPRESSION: 1. No fracture is seen. 2. Multilevel spondylotic changes are seen as described. 3. Mild calcified atherosclerotic changes are seen in the thoracic aorta. All radiology interpretation(s) finalized by discharge Discharge Plan Discharge Patient Disposition: Home Clinical Impression: Fall from slip, trip, or stumble, Acute thoracic back pain Condition: Stable Prescriptions: No Action multivitamin Tablet 1 tab PO QAM acetaminophen 650 mg tablet extended release 650 mg PO 3XD PRN (Reason: Pain) (DME) Blood Glucose Test Strip See Rx Instructions .ROUTE .MEDSUPPLY Qty: 400 3RF Rx Instructions: As directed to test blood sugar 3-4 times a day aspirin 325 mg tablet 325 mg PO DAILY metoprolol tartrate 75 mg tablet 75 mg PO BID Qty: 180 2RF hydralazine 50 mg tablet 50 mg PO TID Qty: 270 1RF montelukast 10 mg tablet 10 mg PO DAILY Qty: 90 3RF amoxicillin-pot clavulanate 875-125 mg tablet 1 tab PO Q12H 10 Days Qty: 20 0RF esomeprazole magnesium [Nexium] 40 mg capsule,delayed release(DR/EC) 40 mg PO DAILY Qty: 90 3RF amlodipine 2.5 mg tablet 2.5 mg PO BID Qty: 270 2RF valsartan 160 mg tablet 160 mg PO DAILY Qty: 90 3RF simvastatin 20 mg tablet 20 mg PO DAILY Qty: 90 3RF bumetanide 1 mg tablet 1 mg PO DAILY Qty: 90 3RF (DME) diabetic supplies, miscellan. Misc See Rx Instructions .ROUTE .MEDSUPPLY Qty: 2 0RF Rx Instructions: Diabetic shoes and inserts. Please issue 2 pair. isosorbide mononitrate 60 mg tablet extended release 24 hr 60 mg PO QAM Qty: 90 3RF sertraline [Zoloft] 100 mg tablet 200 mg PO DAILY 30 Days Qty: 60 5RF spironolactone 25 mg tablet 25 mg PO DAILY Qty: 90 3RF Bydureon BCise 2 mg/0.85 mL auto-injector 2 mg SUBCUT Q7D Qty: 10.2 0RF Rx Instructions: Sundays lorazepam 1 mg tablet 1 mg PO BID PRN (Reason: anxiety) Qty: 60 2RF cholecalciferol (vitamin D3) 125 mcg (5,000 unit) capsule 5,000 unit PO DAILY fluticasone propion-salmeterol [Wixela Inhub] 250-50 mcg/dose Blister With Device 1 inh INHALATION BID cetirizine [Zyrtec] 10 mg Tablet 10 mg PO DAILY PRN (Reason: allergies) albuterol sulfate 90 mcg/actuation Hfa Aerosol Inhaler 1 inh INHALATION QID PRN (Reason: Wheezing) ketoconazole 2 % cream 1 applic TOPICAL BID PRN (Reason: affected skin folds) metformin 500 mg tablet extended release 24 hr 1,000 mg PO BID cyanocobalamin (vitamin B-12) [Vitamin B-12] 5,000 mcg Tablet, Sublingual 5,000 mcg SUBLINGUAL DAILY gabapentin 100 mg capsule 100 mg PO QID potassium chloride 20 mEq tablet extended release 20 meq PO DAILY Discharge Orders: Discharge ED (Routine); Ordered 03/20/25 Ordered By: Vanessa Alberto Referrals: eGne Nguyen DO [Primary Care Provider, Family Practice] Patient Instructions: Back Pain (ED) Print Language: Cymraes Coding Level of Care Code ED Able Bodied Seaman for Mahogany Olvera
--- NOTE | 2025-03-20 14:23 | PC.NURSE ---
pt requesting water, Dr. Remy brambila, pt given water.
[2025-03-20 15:00] VITALS: BP 110/53; PULSE 74; O2SAT 96
[2025-03-20 15:26] VITALS: BP 110/53; PULSE 74; O2SAT 96
== END 2025-03-20 15:27 | disposition home or self-care (01) ==
PROVIDERS: Emergency Provider Emergency Medicine; PCP Family Medicine
DX: M54.6 Pain in thoracic spine (principal); M25.511 Pain in right shoulder; W01.0XXA Fall on same level from slipping, tripping and stumbling without subsequent striking against object, initial encounter; Z79.84 Long term (current) use of oral hypoglycemic drugs; Z79.899 Other long term (current) drug therapy; Z79.82 Long term (current) use of aspirin
CPT/HCPCS: 71046; 72128; 99284; J9999

== ENCOUNTER → 2025-05-12 11:09 | Outpatient (BNVA) | payer MEDICARE, OTHER, SELFPAY | PROVIDERS: PCP Family Medicine; Visit Provider Podiatrist Foot & Ankle Surgery | DX: E11.8 Type 2 diabetes mellitus with unspecified complications (principal); L60.3 Nail dystrophy; E11.42 Type 2 diabetes mellitus with diabetic polyneuropathy; M20.41 Other hammer toe(s) (acquired), right foot; M20.42 Other hammer toe(s) (acquired), left foot; M20.21 Hallux rigidus, right foot; M24.571 Contracture, right ankle; Z79.84 Long term (current) use of oral hypoglycemic drugs | CPT/HCPCS: 11721 ==

== ENCOUNTER → 2025-06-16 14:25 | Outpatient (BNVA) | payer MEDICARE, OTHER, SELFPAY | PROVIDERS: PCP Family Medicine; Visit Provider Family Medicine | DX: I10 Essential (primary) hypertension (principal); R79.89 Other specified abnormal findings of blood chemistry; E78.2 Mixed hyperlipidemia; E11.42 Type 2 diabetes mellitus with diabetic polyneuropathy; E11.22 Type 2 diabetes mellitus with diabetic chronic kidney disease; N18.30 Chronic kidney disease, stage 3 unspecified; E55.9 Vitamin D deficiency, unspecified; G25.2 Other specified forms of tremor | CPT/HCPCS: 80053; 80061; 82043; 82306; 82607; 82746; 83036; 83721; 83735; 84439; 84443; 85025 ==

== ENCOUNTER → 2025-07-07 11:04 | Outpatient (BNVA) | payer MEDICARE, OTHER, SELFPAY | PROVIDERS: PCP Family Medicine; Visit Provider Family Medicine | DX: E05.90 Thyrotoxicosis, unspecified without thyrotoxic crisis or storm (principal); R79.89 Other specified abnormal findings of blood chemistry | CPT/HCPCS: 84439; 84443; 84480; 86376 ==

== ENCOUNTER 2025-07-15 14:00 | Oncology outpatient (recurring) (ONCR) | payer MEDICARE, OTHER, SELFPAY ==
[2025-07-01 12:36] LABS: Hematocrit 27.2 % (36-47); Hemoglobin 9.00 g/dL (11.27-16.99); Mean Corpuscular HGB Conc 33.1 g/dL (30-55); Mean Corpuscular Hemoglobin 30.8 pg (27-33); Mean Corpuscular Volume 93.2 fl (85-98); Nucleated Red Blood Cells % 0 %; Platelet Count 198 10^3/cmm (157-399); Red Blood Count 2.92 10^6/uL (3.85-5.65); White Blood Count 11.59 10^3/uL (3.29-11.43)
[2025-07-01 12:59] LABS: Alanine Aminotransferase 14 U/L (0-33); Albumin Level 4.3 g/dL (3.5-5.2); Alkaline Phosphatase 85 U/L (35-105); Anion Gap 19.1 (5-19); Aspartate Amino Transferase 17 U/L (0-32); Blood Urea Nitrogen 29 mg/dL (8-23); Calcium 9.6 mg/dL (8.5-10.5); Carbon Dioxide 19 mmol/L (22-29); Chloride 105 mmol/L (98-107); Creatinine Clr Calc Pharmacy 28.6795; Ferritin 256 ng/mL (15-150); Globulin 2.9 g/dL (1.3-4.6); Glucose 111 mg/dL (65-115); Iron 34 ug/dL (37-145); Osmolality Calculated 295 mOsm/kg (285-295); Potassium 4.1 mmol/L (3.5-5.1); Sodium 139 mmol/L (136-145); Total Iron Binding Capacity 298 mcg/dl; Total Protein 7.2 g/dL (6.6-8.7); Unsaturated Iron Binding 264 ug/dL (112-347)
[2025-07-01 13:14] LABS: Vitamin B12 491 pg/mL (232-1245)
[2025-07-08] MEDS: ferric carboxy (PYXIS) 750 MG in sodium chloride 0.9% (100 ml) 100 ML 345 MG IV (15:09)
[2025-07-08 15:46] VITALS: BP 156/84; PULSE 84; RESP 16; O2SAT 96
[2025-07-15] MEDS: ferric carboxy (PYXIS) 750 MG in sodium chloride 0.9% (100 ml) 100 ML 345 MG IV (14:05)
== END 2025-07-27 23:59 | disposition home or self-care (01) ==
PROVIDERS: PCP Family Medicine; Visit Provider Internal Medicine
DX: D50.9 Iron deficiency anemia, unspecified; Z79.899 Other long term (current) drug therapy; Z53.9 Procedure and treatment not carried out, unspecified reason
CPT/HCPCS: 36415; 80048; 80053; 82607; 82728; 82746; 83010; 83540; 83550; 83615; 85025; 85045; 96365; 99213; J1439

== ENCOUNTER 2025-09-08 13:04 | Oncology outpatient (recurring) (ONCR) | payer MEDICARE, OTHER, SELFPAY ==
[2025-09-08 13:31] LABS: Hematocrit 29.5 % (36-47); Hemoglobin 9.80 g/dL (11.27-16.99); Mean Corpuscular HGB Conc 33.2 g/dL (30-55); Mean Corpuscular Hemoglobin 31.7 pg (27-33); Mean Corpuscular Volume 95.5 fl (85-98); Nucleated Red Blood Cells % 0 %; Platelet Count 177 10^3/cmm (157-399); Red Blood Count 3.09 10^6/uL (3.85-5.65); White Blood Count 8.07 10^3/uL (3.29-11.43)
[2025-09-08 13:56] LABS: Alanine Aminotransferase 12 U/L (0-33); Albumin Level 4.3 g/dL (3.5-5.2); Alkaline Phosphatase 93 U/L (35-105); Anion Gap 19.3 (5-19); Aspartate Amino Transferase 19 U/L (0-32); Blood Urea Nitrogen 34 mg/dL (8-23); Calcium 9.6 mg/dL (8.5-10.5); Carbon Dioxide 18 mmol/L (22-29); Chloride 108 mmol/L (98-107); Ferritin 744 ng/mL (15-150); Globulin 3.0 g/dL (1.3-4.6); Glucose 97 mg/dL (65-115); Iron 70 ug/dL (37-145); Osmolality Calculated 300 mOsm/kg (285-295); Potassium 4.3 mmol/L (3.5-5.1); Sodium 141 mmol/L (136-145); Total Iron Binding Capacity 253 mcg/dl; Total Protein 7.3 g/dL (6.6-8.7); Unsaturated Iron Binding 183 ug/dL (112-347)
[2025-09-08 14:12] LABS: Vitamin B12 475 pg/mL (232-1245)
== END 2025-09-26 23:59 | disposition home or self-care (01) ==
PROVIDERS: PCP Family Medicine; Visit Provider Internal Medicine
DX: D50.9 Iron deficiency anemia, unspecified (principal); Z79.899 Other long term (current) drug therapy; Z53.9 Procedure and treatment not carried out, unspecified reason; E87.6 Hypokalemia; E87.5 Hyperkalemia; E11.22 Type 2 diabetes mellitus with diabetic chronic kidney disease; N18.30 Chronic kidney disease, stage 3 unspecified; M81.0 Age-related osteoporosis without current pathological fracture; R60.0 Localized edema; D64.9 Anemia, unspecified; Z87.891 Personal history of nicotine dependence; G25.2 Other specified forms of tremor; N18.9 Chronic kidney disease, unspecified; D63.1 Anemia in chronic kidney disease
CPT/HCPCS: 11721; 36415; 80053; 82607; 82668; 82728; 82746; 83010; 83540; 83550; 83615; 85025; 85045; 99213

== ENCOUNTER → 2025-09-10 14:04 | Outpatient (BNVA) | payer MEDICARE, OTHER, SELFPAY | PROVIDERS: PCP Family Medicine; Visit Provider Nurse Practitioner Family | DX: L57.8 Other skin changes due to chronic exposure to nonionizing radiation (principal); Z85.828 Personal history of other malignant neoplasm of skin; L57.0 Actinic keratosis | CPT/HCPCS: 17000; 99213 ==

== ENCOUNTER 2025-10-20 09:37 | Oncology outpatient (recurring) (ONCR) | payer MEDICARE, OTHER, SELFPAY ==
[2025-10-06 13:58] LABS: Hematocrit 28.8 % (36-47); Hemoglobin 9.30 g/dL (11.27-16.99); Mean Corpuscular HGB Conc 32.3 g/dL (30-55); Mean Corpuscular Hemoglobin 31.8 pg (27-33); Mean Corpuscular Volume 98.6 fl (85-98); Nucleated Red Blood Cells % 0 %; Platelet Count 205 10^3/cmm (157-399); Red Blood Count 2.92 10^6/uL (3.85-5.65); White Blood Count 10.18 10^3/uL (3.29-11.43)
[2025-10-06 14:26] LABS: Alanine Aminotransferase 15 U/L (0-33); Albumin Level 4.0 g/dL (3.5-5.2); Alkaline Phosphatase 75 U/L (35-105); Anion Gap 16.6 (5-19); Aspartate Amino Transferase 18 U/L (0-32); Blood Urea Nitrogen 41 mg/dL (8-23); Calcium 9.4 mg/dL (8.5-10.5); Carbon Dioxide 19 mmol/L (22-29); Chloride 108 mmol/L (98-107); Globulin 3.7 g/dL (1.3-4.6); Glucose 112 mg/dL (65-115); Osmolality Calculated 297 mOsm/kg (285-295); Potassium 5.6 mmol/L (3.5-5.1); Sodium 138 mmol/L (136-145); Total Protein 7.7 g/dL (6.6-8.7)
[2025-10-06 16:18] LABS: Ferritin 795 ng/mL (15-150); Iron 41 ug/dL (37-145); Total Iron Binding Capacity 234 mcg/dl; Unsaturated Iron Binding 193 ug/dL (112-347)
[2025-10-07 12:10] LABS: Estmated Average Glucose 91; Hemoglobin A1C 4.8 % (4.0-6.0)
[2025-10-20 10:02] LABS: Hematocrit 26.5 % (36-47); Hemoglobin 8.50 g/dL (11.27-16.99); Mean Corpuscular HGB Conc 32.1 g/dL (30-55); Mean Corpuscular Hemoglobin 30.6 pg (27-33); Mean Corpuscular Volume 95.3 fl (85-98); Nucleated Red Blood Cells % 0 %; Platelet Count 404 10^3/cmm (157-399); Red Blood Count 2.78 10^6/uL (3.85-5.65); White Blood Count 10.73 10^3/uL (3.29-11.43)
[2025-10-20 10:25] LABS: Alanine Aminotransferase < 5 U/L (0-33); Albumin Level 3.8 g/dL (3.5-5.2); Anion Gap 19.0 (5-19); Aspartate Amino Transferase 15 U/L (0-32); Blood Urea Nitrogen 47 mg/dL (8-23); Calcium 9.3 mg/dL (8.5-10.5); Carbon Dioxide 19 mmol/L (22-29); Chloride 104 mmol/L (98-107); Glucose 108 mg/dL (65-115); Osmolality Calculated 297 mOsm/kg (285-295); Potassium 5.0 mmol/L (3.5-5.1); Sodium 137 mmol/L (136-145); Total Protein 7.7 g/dL (6.6-8.7)
[2025-10-20 10:26] LABS: Alkaline Phosphatase 79 U/L (35-105); Globulin 3.9 g/dL (1.3-4.6)
== END 2025-10-27 23:59 | disposition home or self-care (01) ==
PROVIDERS: Nurse Practitioner Family; PCP Family Medicine; Visit Provider Internal Medicine
DX: Z53.9 Procedure and treatment not carried out, unspecified reason; N18.9 Chronic kidney disease, unspecified; D63.1 Anemia in chronic kidney disease; D50.9 Iron deficiency anemia, unspecified; E11.69 Type 2 diabetes mellitus with other specified complication; M89.8X9 Other specified disorders of bone, unspecified site; Z79.899 Other long term (current) drug therapy; I12.9 Hypertensive chronic kidney disease with stage 1 through stage 4 chronic kidney disease, or unspecified chronic kidney disease; E11.9 Type 2 diabetes mellitus without complications
CPT/HCPCS: 36415; 80053; 82728; 83010; 83036; 83540; 83550; 83615; 85025; 85045; 96372; 99214; 99215; J0881